=== PATIENT | male | born 1970 | race Caucasian/White ===

== ENCOUNTER 2017-07-04 13:17 | Inpatient (IN) | payer MEDICARE ==
[~2017-07-04] VITALS: Ht 167.6 cm; Wt 67.8 kg
[2017-07-04 13:24] VITALS: Ht 167.6 cm; Wt 67.8 kg
[2017-07-04] MEDS ORDERED: KETOROLAC 15 MG INJ IV STA (13:33)
[2017-07-04] MEDS ORDERED: SOD CHLORIDE 0.9% 1,000 ML IV STA (13:33)
[2017-07-04] MEDS ORDERED: INSULIN LISPRO 100 UNIT/ML VIAL SC STA (13:35)
[2017-07-04] MEDS ORDERED: ATOR80TA75 PO (13:58)
[2017-07-04] MEDS ORDERED: TAMS0.4C2 PO (13:59)
[2017-07-04] MEDS ORDERED: ASPIRIN 81 MG TAB PO ONE (14:00)
[2017-07-04] MEDS ORDERED: NIFE30TA60 PO (14:00)
[2017-07-04] MEDS ORDERED: NITROGLYCERIN (SL) 0.4 MG TAB SL ONE (14:00)
[2017-07-04] MEDS ORDERED: LISI10TA2 PO (14:01)
[2017-07-04] MEDS ORDERED: INSU100C3 SQ (14:03)
--- NOTE | 2017-07-04 14:26 | RADRPT ---
PROCEDURE: XR Chest. CLINICAL INDICATION: Chest pain TECHNIQUE: Single frontal view of the chest was obtained COMPARISON: None FINDINGS: The heart and mediastinum are within normal limits. The lungs are clear. There is no pleural effusion or pneumothorax. The bones and soft tissue show no acute change. IMPRESSION: No definite abnormalities are identified. RPTAT:AAJJ Physician Juanis Date Time Electronically viewed and signed by Bruno Carrasco Physician on 07/04/2017 14:26 /
[2017-07-04] MEDS ORDERED: INSULIN HUMAN REGULAR 100 UNIT in SOD CHLORIDE 0.9% 99 ML IV STA (14:52)
[2017-07-04] MEDS ORDERED: POTASSIUM CHLORIDE 30 MEQ in SOD CHLORIDE 0.9% 1,000 ML IV ONE (15:00)
[2017-07-04] MEDS ORDERED: SOD CHLORIDE 0.9% 1,000 ML IV ONE ×2 (15:00→17:30)
[2017-07-04] MEDS ORDERED: DEXTROSE 50% 50 ML SYRINGE IV PRN ×2 (15:00)
[2017-07-04] MEDS ORDERED: ONDANSETRON 4 MG INJ IV STA (15:24)
[2017-07-04] MEDS: SOD CHLORIDE 0.9% 1,000 ML IV SCH ×2 (15:43→19:17)
[2017-07-04] MEDS: ACCU-CHEK XX SCH ×10 (15:45→23:40)
--- NOTE | 2017-07-04 16:13 | ERA ---
ER Documentation Chief Complaint Date/Time DATE: 07/04/17 TIME: 16:11 Chief Complaint CHEST PAIN STARTED LAST NIGHT, INCREASINGLY WORSE TODAY, NAUSEATED HPI 47-year-old man presents with substernal pressure-like chest discomfort beginning last night, he states the discomfort has been constant and associated with nausea and multiple episodes of vomiting. He states he checked his blood sugar last night and it was in the 150s, and has been using both types of insulin daily as prescribed. He does have a history of diabetes mellitus and hypertension. He does have a right foot infection with a wound VAC currently on the foot and has recently used antibiotics. He denies changes in his insulin regimen, but states he has lost 20 pounds recently, he has had polyuria as well. He denies fevers or chills, no diarrhea, no headache or blurry vision , no neck pain or stiffness. ROS All systems reviewed and are negative except as per history of present illness. Medications Home Meds Reported Medications Insulin Aspart (Novolog) 100 Unit/1 Ml Cartridge, 4 UNIT SQ AC BREAKFAST 07/04/17 Lisinopril* (Lisinopril*) 10 Mg Tablet, 10 MG PO DAILY, #30 TAB 07/04/17 Nifedipine* (Nifedipine ER*) 30 Mg Tablet.sa, 30 MG PO DAILY, TAB.SA 07/04/17 Tamsulosin Hcl* (Tamsulosin Hcl*) 0.4 Mg Cap.er.24h, 0.4 MG PO HS, CAP 07/04/17 Atorvastatin* (Atorvastatin*) 80 Mg Tablet, 80 MG PO QHS, #30 TAB 07/04/17 Allergies Allergies: Coded Allergies: No Known Allergy (Unverified , 07/04/17) PMhx/Soc BPH, dyslipidemia, hypertension, diabetes mellitus, recent right foot infection , chronic kidney injury not on dialysis History of Surgery: Yes (BILATERAL LEGS, TOES) Anesthesia Reaction: No Hx 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 Disorder: No Hx Respiratory Disorders: No Hx Cardiac Disorders: Yes (HTN) Hx Psychiatric Problems: No Hx Miscellaneous Medical Probl: Yes (DM) Hx Alcohol Use: No Hx Substance Use: No Hx Tobacco Use: No Smoking Status: Unknown if ever smoked FmHx Family History: No diabetes Physical Exam Vitals Vital Signs Date Time Temp Pulse Resp B/P Pulse Ox O2 Delivery O2 Flow Rate FiO2 07/04/17 18:30 98.2 94 18 117/63 95 Nasal Cannula 2.0 07/04/17 18:00 76 18 148/80 100 Nasal Cannula 2.0 07/04/17 16:45 98.2 86 18 151/79 100 Nasal Cannula 2.0 07/04/17 15:45 78 18 147/100 100 Nasal Cannula 2.0 07/04/17 14:46 85 18 148/86 99 Nasal Cannula 2.0 07/04/17 13:24 97.9 83 18 128/75 100 Physical Exam GENERAL: Well-developed, appears dehydrated, afebrile HEENT: Dry mucous membranes, pink conjunctiva, no cervical spine tenderness or step-off deformities, no goiter, no jaundice or icterus, extraocular movements intact without pain. No submandibular induration, and no pharyngeal erythema NEURO: Alert and oriented 3, cranial nerves II through XII intact bilaterally, pupils equal round reactive to light, no focal deficits or facial asymmetry, sensation intact distally Strength 5/5 in upper and lower extremities bilaterally CARDIAC: Regular rate and rhythm, no murmurs rubs or gallops LUNGS: Clear bilaterally no wheezing crackles or stridor ABDOMEN: Soft nontender, no guarding, no rigidity, no rebound, no psoas sign no obturator sign. Normoactive bowel sounds SKIN: Warm and dry to touch, no abrasions, contusions, or hematomas, no lacerations, no ecchymosis, no target lesions, and without ulcers EXTREMITIES: No clubbing cyanosis or edema, calves are bilaterally symmetrical, no Homans sign, no popliteal cord sign. Distal pulses equal and bilateral PSYCH: Normal affect without agitation or irritability Result Diagram: 07/04/17 1344 07/04/17 1711 Results 24 hrs Laboratory Tests Test 07/04/17 13:42 07/04/17 13:44 07/04/17 14:59 07/04/17 15:16 Bedside Glucose > 595mg/dL White Blood Count 8.810^3/ul Red Blood Count 3.3610^6/ul Hemoglobin 9.9g/dl Hematocrit 28.6% Mean Corpuscular Volume 85.1fl Mean Corpuscular Hemoglobin 29.5pg Mean Corpuscular Hemoglobin Concent 34.6g/dl Red Cell Distribution Width 13.7% Platelet Count 79059^3/UL Mean Platelet Volume 11.4fl Neutrophils % 84.8% Lymphocytes % 7.5% Monocytes % 5.8% Eosinophils % 0.0% Basophils % 0.5% Nucleated Red Blood Cells % 0.0/100WBC Neutrophils # 7.510^3/ul Lymphocytes # 0.710^3/ul Monocytes # 0.510^3/ul Eosinophils # 0.010^3/ul Basophils # 0.010^3/ul Nucleated Red Blood Cells # 0.010^3/ul Prothrombin Time 12.9Sec Prothrombin Time Ratio 1.0 INR International Normalized Ratio 0.97 Sodium Level 125mmol/L Potassium Level 5.0mmol/L Chloride Level 94mmol/L Carbon Dioxide Level 6mmol/L Anion Gap 30 Blood Urea Nitrogen 106mg/dl Creatinine 12.63mg/dl Glucose Level 868mg/dl Calcium Level 8.2mg/dl Total Bilirubin 0.0mg/dl Direct Bilirubin 0.00mg/dl Indirect Bilirubin 0.0mg/dl Aspartate Amino Transf (AST/SGOT) 15IU/L Alanine Aminotransferase (ALT/SGPT) 40IU/L Alkaline Phosphatase 156IU/L Troponin I < 0.012ng/ml Total Protein 7.1g/dl Albumin 3.8g/dl Globulin 3.30g/dl Albumin/Globulin Ratio 1.15 Lipase 254U/L Blood Gas Specimen Source Blood arterial Arterial Blood Date Drawn 07/04/2017 3:04:13 PM Arterial Blood pH (Temp corrected) 7.152 Arterial Blood pCO2 (Temp correct) 28.4mmhg Arterial Blood pO2 (Temp corrected) 150.0mmHG Arterial Blood HCO3 9.7mmol/L Arterial Blood Base Excess -17.7mmol/L Arterial Blood Oxygen Saturation 98.3mmHG Chu Test ACCEPTAB Arterial Blood Gas Puncture Site Right Radial Arterial Blood Carboxyhemoglobin 0.3% Arterial Blood Methemoglobin 0.3% Blood Gas A-a O2 Differential 16.1mmHg Oxyhemoglobin Percent 97.7% Total Hemoglobin 10.5g/dl Blood Gas Temperature 37.0C Blood Gas Modality NASAL CANNULA FiO2 28.0% Blood Gas Critical Value Read Back DR. MARQUEZ Blood Gas Notified Whom Byron Blood Gas Notified Time 07/04/2017 3:11:18 PM Lactic Acid Level 0.9mmol/L Phosphorus Level 8.5mg/dl Magnesium Level 1.8mg/dl Test 07/04/17 15:17 07/04/17 15:35 07/04/17 15:55 07/04/17 16:41 Hemoglobin A1c 11.1% Bedside Glucose > 595mg/dL 563mg/dL Urine Color STRAW Urine Clarity CLEAR Urine pH 5.0 Urine Specific [place] 1.013 Urine Ketones TRACEmg/dL Urine Nitrite NEGATIVEmg/dL Urine Bilirubin NEGATIVEmg/dL Urine Urobilinogen NEGATIVEmg/dL Urine Leukocyte Esterase NEGATIVELeu/ul Urine Microscopic RBC 1/HPF Urine Microscopic WBC 3/HPF Urine Hemoglobin 1+mg/dL Urine Glucose 3+mg/dL Urine Total Protein 3+mg/dl Test 07/04/17 17:11 07/04/17 17:41 07/04/17 18:49 Sodium Level 128mmol/L Potassium Level 4.6mmol/L Chloride Level 106mmol/L Carbon Dioxide Level 6mmol/L Anion Gap 21 Blood Urea Nitrogen 98mg/dl Creatinine 10.86mg/dl Glucose Level 591mg/dl Calcium Level 7.5mg/dl Bedside Glucose 575mg/dL 426mg/dL Current Medications Medications (Trade) Dose Ordered Sig/Jorge Route PRN Reason Start Time Stop Time Status Last Admin Dose Admin Aspirin (Aspirin) 324 mg ONCE ONCE PO 07/04/17 14:00 07/04/17 14:01 DC 07/04/17 13:56 Nitroglycerin 1 tab 1 tab ONCE ONCE SL 07/04/17 14:00 07/04/17 17:35 DC 07/04/17 13:53 Sodium Chloride (NS) 1,000 ml @ 1,000 mls/hr Q1H STAT IV 07/04/17 13:33 07/04/17 14:32 DC 07/04/17 13:51 Ketorolac Tromethamine (Toradol) 15 mg ONCE STAT IV 07/04/17 13:33 07/04/17 13:35 DC 07/04/17 13:52 Insulin Human Lispro 12 unit 12 unit ONCE STAT SC 07/04/17 13:35 07/04/17 13:36 DC 07/04/17 13:56 Sodium Chloride 1,000 ml @ 1,000 mls/hr Q1H ONCE IV 07/04/17 15:00 07/04/17 15:59 DC 07/04/17 15:18 Sodium Chloride (NS) 1,000 ml @ 250 mls/hr Q4H IV 07/04/17 15:00 07/04/17 15:43 Dextrose (D50w Syringe) 50 ml Q15M PRN IV For BS 50 or less 07/04/17 15:00 Dextrose 25 ml 25 ml Q15M PRN IV BS between 50-70 07/04/17 15:00 Potassium Chloride 30 meq/ Sodium Chloride 1,015 ml @ 250 mls/hr Q4H4M ONCE IV 07/04/17 15:00 07/04/17 19:03 DC 07/04/17 15:43 Insulin Human Regular/Sodium Chloride (Novolin-R/NS) 100 ml @ 0 mls/hr DKA PROTOCOL STAT IV 07/04/17 14:52 07/04/17 17:35 DC 07/04/17 15:41 Diagnostic Test (Pha) (Accu-Chek) 1 ea Q1H XX 07/04/17 15:00 07/04/17 17:43 DC 07/04/17 17:42 Miscellaneous Information (* Miscellaneous Pharmacy Order) HYPOGLYCEMIA TREATMENT HYPOGLYCEM PROTOCOL PRN XX Hypoglycemia (BS < 70) 07/04/17 15:00 Ondansetron HCl 4 mg 4 mg ONCE STAT IV 07/04/17 15:24 07/04/17 15:25 DC 07/04/17 15:46 Sodium Chloride 1,000 ml @ 1,000 mls/hr Q1H ONCE IV 07/04/17 17:30 07/04/17 18:29 DC 07/04/17 17:31 Insulin Human Regular/Sodium Chloride (Novolin-R/NS) 100 ml @ 0 mls/hr DKA PROTOCOL IV 07/04/17 17:30 Diagnostic Test (Pha) (Accu-Chek) 1 ea Q1H XX 07/04/17 17:30 07/04/17 19:01 IV Flush (NS 3 ml) 3 ml PER PROTOCOL IV 07/04/17 18:00 Heparin Sodium (Porcine) (Heparin (5000 Units/0.5 ml)) 5,000 unit Q12 SC 07/04/17 21:00 Insulin Human Regular (Humulin R) 10 unit ONCE STAT IV 07/04/17 18:10 07/04/17 18:33 DC Sodium Bicarbonate (Na Bicarb 8.4% Syg) 100 ml ONCE STAT IV 07/04/17 18:22 07/04/17 18:33 DC Procedures/MDM IV line was established patient was placed on cardiac exercise physiologist rhythm strip revealed a sinus rhythm at about 70 bpm with upright P and T waves. Patient was afebrile. For dehydration admitted 1 L normal saline intravenously and aspirin 324 mg p.o. for cardioprotective measures as well last nitroglycerin 0.4 mg sublingual 1. Patient also received Toradol 50 mg IV 1 for pain. EKG performed, read by me: 72 bpm, normal sinus rhythm, normal axis, no acute ST segment changes, narrow QRS complex, with good R-wave progression in precordial leads. Chest X-ray 1V Interpreted by me: Soft Tissue: No acute abnormalities Bones: No acute abnormalities Mediastinum/Cardiac Silhouette/Lungs: No acute abnormalities CBC revealed anemia at 9.9, electrolytes were all abnormal with severe kidney injury and dehydration with a BUN/creatinine of 98/11, bicarb low at 6, blood sugar above 591. Patient received an initial dose of lispro insulin 10 units subcutaneous injection. This is consistent with moderate to severe diabetic ketoacidosis. Patient was given another 2L of normal saline as well as a saline potassium supplementation drip at 250 cc/h. I also placed him on insulin drip at 0.1 U/kg/h to be titrated by admitting team. Urine analysis was negative for infection. ABG performed, read by me revealed a pH of 7.15, PCO2 28, PO2 150 revealing severe metabolic acidosis with uncompensated respiratory alkalosis. Calcium level was low at 7.5, phosphorus elevated, magnesium normal. I administered calcium gluconate 1 g IV for supplementation. Critical Care: Time: 60 minutes, this was time separate from other billable procedures. Treatments/Evaluations: Close monitoring and treatment of unstable vital signs, cardiorespiratory, and neurologic status, while maintaining tight balance of fluid, respiratory, and cardiac interventions. Patient admitted to ICU for severe diabetic ketoacidosis and acute renal failure , and hypoglycemia Departure Diagnosis: Primary Impression: DKA, type 2 Qualified Code: E13.10 - Type 2 diabetes mellitus with ketoacidosis without coma, with long-term current use of insulin Additional Impressions: Acute hyperglycemia Acute kidney injury Anemia Qualified Code: D64.9 - Anemia, unspecified type Hypocalcemia Hyperphosphatemia Condition: Serious ZOHRABIAN,SELENE MD Jul 04, 2017 16:13
[2017-07-04] MEDS ORDERED: INSULIN HUMAN REGULAR 100 UNIT in SOD CHLORIDE 0.9% 99 ML IV SCH (17:30)
--- NOTE | 2017-07-04 17:47 | HP ---
Date/Time of Note Date/Time of Note DATE: 07/04/17 TIME: 17:39 Assessment/Plan VTE Prophylaxis VTE Prophylaxis Intervention: heparin Lines/Catheters Urinary Cath still in place: Yes Reason Cath still needed: urinary retention Assessment/Plan Chief Complaint/Hosp Course 47 yo male wtih diabetes who presents with DKA, profoudn acidosis and MARICRUZ DKA: - IV insulin per protocol - BMP q4h - 20 units glargine once gap is closed and patient is eating - D5 1/2 NS when FSG < 200 MARICRUZ: - Never before been told he has kidney problem, normal urine output recently - Making adequate urine now, watkins placed - Trend creatinine, will improved somwehat with fluids Metabolic acidosis: - Monitor with correction of DKA - No indication for bicarb given pH To ICU Greater than 45 minutes spent on CC admission Problems: HPI/ROS Admit Date/Time Admit Date/Time Hx of Present Illness 47 yo male with h/o DM on insulin, previous toe amputation presenting wtih nausea and abominal discomfort and lethargy x 1 day. Symptoms started yesterday. Went to PMD, found to be tachypneic and lethargic, sent to ED. Her foudn to e in profound renal faiulre and DKA. Has never been told he has had a kidney problem before. Makes urine. Has urinated in ED x 2. Has receives IV insulin and fluids, says he feels much better. No current complaints. No appetite yet. Denies current abdmoina pain, no diarreha, no chest symptoms, no obvious symptmos of infection PMH/Family/Social Past Medical History Medical History: diabetes Past Surgical History tesricular surgery as child toe amputation Social History Alcohol Use: none Smoking Status: Unknown if ever smoked Drug Use: none Exam/Review of Systems Vital Signs Vitals Vital Signs Date Time Temp Pulse Resp B/P Pulse Ox O2 Delivery O2 Flow Rate FiO2 07/04/17 16:45 98.2 86 18 151/79 100 Nasal Cannula 2.0 Exam Exam Appears well, no distress AOX3, pleasant, conversatn RRR, no m/r/g Lungs clear bilaterally Abdomen soft nt nd Ext without edema. s/p RLE toe amputation No ulcerations Labs Result Diagram: 07/04/17 1344 07/04/17 1344 Medications Medications Current Medications Sodium Chloride (NS) 1,000 ml @ 250 mls/hr Q4H IV Last administered on 15:43; Admin Dose 250 MLS/HR; Start 07/04/17 at 15:00 Dextrose (D50w Syringe) 50 ml Q15M PRN IV For BS 50 or less; Start 07/04/17 at 15:00 Dextrose 25 ml 25 ml Q15M PRN IV BS between 50-70; Start 07/04/17 at 15:00 Potassium Chloride/Sodium Chloride (KCl/NS) 1,015 ml @ 250 mls/hr Q4H4M ONCE IV Last administered on 07/04/17 15:43; Admin Dose 250 MLS/HR; Start at 15:00; Stop 07/04/17 at 19:03 Diagnostic Test (Pha) 1 ea 1 ea Q1H XX Last administered on 07/04/17 16:48; Admin Dose 1 EA; Start 07/04/17 at 15:00 Sodium Chloride (NS) 1,000 ml @ 1,000 mls/hr Q1H ONCE IV Last administered on 07/04/17 17:31; Admin Dose 1,000 MLS/HR; Start 07/04/17 at 17:30; Stop 07/04 at 18:29 Diagnostic Test (Pha) (Accu-Chek) 1 ea Q1H XX ; Start 07/04/17 at 17:30; Status DIMA GRIMALDO MD Jul 04, 2017 17:47
[2017-07-04] MEDS ORDERED: NACL 0.9% 3 ML SYG IV SCH (18:00)
[2017-07-04] MEDS ORDERED: INSULIN REGULAR, HUMAN 100 UNIT/1 ML 3ML VIAL IV STA (18:10)
[2017-07-04] MEDS ORDERED: NA BICARBONATE 8.4% 50 ML SYG IV STA (18:22)
[2017-07-04] MEDS ORDERED: CALCIUM GLUCONATE 10% 1 GM in SOD CHLORIDE 0.9% 100 ML IVPB ONE (19:30)
--- NOTE | 2017-07-04 20:09 | CONS ---
Date/Time of Note Date/Time of Note DATE: 07/04/17 TIME: 20:08 Assessment/Plan Assessment/Plan Additional Assessment/Plan 1. Acute kidney Injury vs MARICRUZ on CKD due to severe prerenal azotemia + ATN From DKA 2. Severe metabolic acidosis with PH 7.1 3. Hyponatremia 4. acute Diabeic ketoacidosis on insulin gtt 5. IDDM with Diabetic kidney disease Plan ; Pt received IVF NS 3 liter in ED< Currently getting NS at 250 cc/hr Pt received Ca gluconate adn Sodium bicarbonatein ED Follow up Chemisty and ABG has been ordered at 8.30 pm- nurse has been instructed to call me back with results of ABG and chemistry Carranza catheter has been attempted in ED but unsuccessful- urethral opening at base of penis- pt is able to void in ED Expectign Cr and HCo3 to improve with IVF hydration and Insulin gtt Renal US has been ordered to assess kidney size, echogencity and to rue out hydronephrosis Pt is currently seen in ED and will be followed up in ICU. Consultation Date/Type/Reason Admit Date/Time Jun Date of Consultation: Jul 04, 2017 Type of Consultation: NEPHROLOGY Reason for Consultation acute kidney injury, DKA, severe Metabolic acidosis Referring Provider: DIMA SMITH MD Hx of Present Illness 47 yo male with h/o DM on insulin, previous toe amputation presenting wtih nausea and abominal discomfort and lethargy x 1 day. pt is found to have Acute kidney injury, DKA,severe metabolic acidosis with PH 7.1, Na 128 ,HCo3 6 and BUN 98 and Cr 10.86. Renal has been consulted for it Subjective hx not possible: other (lethargy) Eyes: no complaints ENT: no complaints Respiratory: no complaints Cardiovascular: no complaints Gastrointestinal: nausea, pain Musculoskeletal: no complaints Skin: no complaints Neurologic: no complaints Endocrine: no complaints Lymphatic: no complaints Psychological: no complaints Immunologic: no complaints Past Medical History Medical History: diabetes Past Surgical History Past Surgical Hx: other (Testicular surgery as child, toe amputation ) Family History Significant Family History: no pertinent family hx, other (no family h/o CKD/ CAD/Stroke ) Social History Alcohol Use: none Smoking Status: Unknown if ever smoked Drug Use: none Exam/Review of Systems Vital Signs Vitals Vital Signs Date Time Temp Pulse Resp B/P Pulse Ox O2 Delivery O2 Flow Rate FiO2 07/04/17 19:30 98.2 84 18 146/88 100 Nasal Cannula 2.0 Exam Constitutional: alert, other (Tired, but communicative ) Psych: no complaints Head: normocephalic Eyes: nl conjunctiva ENMT: other (Dry mucous membrane) Neck: non-tender, supple Respiratory: clear to auscultation, congested cough, diminished breath sounds Cardiovascular: other (tachycardia ), regular rate and rhythm Gastrointestinal: non-tender, soft Musculoskeletal: nl extremities to inspection, nl gait and stance Extremities: normal pulses 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: [employer] II-XII intact, nl mental status, nl speech, nl strength Results Result Diagram: 07/04/17 1344 07/04/17 1711 Results 24 hrs Laboratory Tests Test 07/04/17 13:42 07/04/17 13:44 07/04/17 14:59 07/04/17 15:16 Bedside Glucose > 595 *H White Blood Count 8.8 Red Blood Count 3.36 L Hemoglobin 9.9 L Hematocrit 28.6 L Mean Corpuscular Volume 85.1 Mean Corpuscular Hemoglobin 29.5 Mean Corpuscular Hemoglobin Concent 34.6 Red Cell Distribution Width 13.7 Platelet Count 246 Mean Platelet Volume 11.4 H Neutrophils % 84.8 H Lymphocytes % 7.5 L Monocytes % 5.8 Eosinophils % 0.0 Basophils % 0.5 Nucleated Red Blood Cells % 0.0 Neutrophils # 7.5 Lymphocytes # 0.7 L Monocytes # 0.5 Eosinophils # 0.0 Basophils # 0.0 Nucleated Red Blood Cells # 0.0 Prothrombin Time 12.9 Prothrombin Time Ratio 1.0 INR International Normalized Ratio 0.97 Sodium Level 125 L Potassium Level 5.0 Chloride Level 94 L Carbon Dioxide Level 6 *L Anion Gap 30 H Blood Urea Nitrogen 106 H Creatinine 12.63 H Glucose Level 868 *H Calcium Level 8.2 L Total Bilirubin 0.0 L Direct Bilirubin 0.00 Indirect Bilirubin 0.0 Aspartate Amino Transf (AST/SGOT) 15 Alanine Aminotransferase (ALT/SGPT) 40 Alkaline Phosphatase 156 H Troponin I < 0.012 Total Protein 7.1 Albumin 3.8 Globulin 3.30 H Albumin/Globulin Ratio 1.15 Lipase 254 Blood Gas Specimen Source Blood arterial Arterial Blood Date Drawn 07/04/2017 3:04:13 PM Arterial Blood pH (Temp corrected) 7.152 *L Arterial Blood pCO2 (Temp correct) 28.4 L Arterial Blood pO2 (Temp corrected) 150.0 H Arterial Blood HCO3 9.7 *L Arterial Blood Base Excess -17.7 L Arterial Blood Oxygen Saturation 98.3 H Chu Test ACCEPTAB Arterial Blood Gas Puncture Site Right Radial Arterial Blood Carboxyhemoglobin 0.3 Arterial Blood Methemoglobin 0.3 Blood Gas A-a O2 Differential 16.1 Oxyhemoglobin Percent 97.7 Total Hemoglobin 10.5 L Blood Gas Temperature 37.0 Blood Gas Modality NASAL CANNULA FiO2 28.0 Blood Gas Critical Value Read Back DR. MARQUEZ Blood Gas Notified Whom Byron Blood Gas Notified Time 07/04/2017 3:11:18 PM Lactic Acid Level 0.9 Phosphorus Level 8.5 H Magnesium Level 1.8 Test 07/04/17 15:17 07/04/17 15:35 07/04/17 15:55 07/04/17 16:41 Hemoglobin A1c 11.1 H Bedside Glucose > 595 *H 563 *H Urine Color STRAW Urine Clarity CLEAR Urine pH 5.0 Urine Specific [place] 1.013 Urine Ketones TRACE A Urine Nitrite NEGATIVE Urine Bilirubin NEGATIVE Urine Urobilinogen NEGATIVE Urine Leukocyte Esterase NEGATIVE Urine Microscopic RBC 1 Urine Microscopic WBC 3 Urine Hemoglobin 1+ H Urine Glucose 3+ H Urine Total Protein 3+ H Test 07/04/17 17:11 07/04/17 17:41 07/04/17 18:49 07/04/17 19:50 Sodium Level 128 L Potassium Level 4.6 Chloride Level 106 # Carbon Dioxide Level 6 *L Anion Gap 21 #H Blood Urea Nitrogen 98 H Creatinine 10.86 H Glucose Level 591 #*H Calcium Level 7.5 L Bedside Glucose 575 *H 426 *H 309 H Medications Medications Current Medications Sodium Chloride (NS) 1,000 ml @ 250 mls/hr Q4H IV Last administered on t 19:17; Admin Dose 250 MLS/HR; Start 07/04/17 at 15:00 Dextrose (D50w Syringe) 50 ml Q15M PRN IV For BS 50 or less; Start 07/04/17 at 15:00 Dextrose (D50w Syringe) 25 ml Q15M PRN IV BS between 50-70; Start 07/04/17 at 15:00 Diagnostic Test (Pha) (Accu-Chek) 1 ea Q1H XX Last administered on 07/04/17 19:54; Admin Dose 1 EA; Start 07/04/17 at 17:30 Heparin Sodium (Porcine) 5000 unit 5,000 unit Q12 SC ; Start 07/04/17 at 21:00 Calcium Gluconate/ Sodium Chloride (Ca Gluc/NS) 110 ml @ 110 mls/hr ONCE ONCE IVPB Last administered on 07/04/17 19:35; Admin Dose 110 MLS/HR; Start 07/04 at 19:30; Stop 07/04/17 at 20:29 JENNIFER LUKE MD Jul 04, 2017 20:09
[2017-07-04] MEDS: HEPARIN 5,000 UNIT/0.5 ML VIAL SC SCH (21:25)
--- NOTE | 2017-07-04 21:56 | RADRPT ---
PROCEDURE: US Retroperitoneum CLINICAL INDICATION: Acute renal failure TECHNIQUE: Multiple sonographic images of the kidneys and bladder were obtained. Evaluation was p erformed as well with riggins scale and color and Doppler evaluation using a curved array transducer. The images were reviewed on a high-resolution PACS workstation. COMPARISON: No prior studies are available for comparison. FINDINGS: The kidneys are well visualized. The right kidney measures 10.1 cm in length. 3 mm echogenic focus is seen in the lower pole of the right kidney, possibly nonobstructive calculus. The left kidney alex sures 11.3 cm in length. 5 mm echogenic focus is seen in the lower pole of the left kidney, possibly nonobstructive calculus. No solid renal mass, hydronephrosis or perinephric fluid is identified. The bladder is distended. No focal bladder wall abnormality is seen. Abdominal aorta is not visuali zed. IMPRESSION: 1. Possible small bilateral nonobstructive renal calculi measuring up to 5 mm on the left. 2. No hydronephrosis or obstructive uropathy is identified. RPTAT: HDWR .Giovanni Cuenca MD, MD Date Time Electronically viewed and signed by .Giovanni Cuenca MD, MD on 07/04/2017 21:56 .R/
[2017-07-04 22:00] VITALS: TEMP 98.2
[2017-07-04] MEDS ORDERED: NA BICARBONATE 8.4% 50 ML SYG IV ONE (22:00)
[2017-07-04] MEDS: DEXTROSE 5%-0.45% NACL 1,000 ML IV SCH (22:10)
[2017-07-04 23:03] VITALS: PULSE 105
[2017-07-04] MEDS: ONDANSETRON 4 MG INJ IV PRN (23:54)
[2017-07-05] VITALS (24 sets, daily range): BP systolic 134–188; BP diastolic 69–96; PULSE 66–123; RESP 6–24
[2017-07-05] MEDS: ACCU-CHEK XX SCH ×14 (00:45→13:49)
[2017-07-05] MEDS: DEXTROSE 5%-0.45% NACL 1,000 ML IV SCH ×2 (05:35→17:04)
[2017-07-05] MEDS ORDERED: hydrALAzine 20 MG INJ ONE (07:06)
[2017-07-05] MEDS: hydrALAzine 20 MG INJ IV PRN ×3 (07:10→19:07)
[2017-07-05] MEDS: ONDANSETRON 4 MG INJ IV PRN ×2 (08:42→22:13)
[2017-07-05] MEDS: HEPARIN 5,000 UNIT/0.5 ML VIAL SC SCH ×2 (08:44→20:41)
--- NOTE | 2017-07-05 08:59 | CONS ---
Date/Time of Note Date/Time of Note DATE: 07/05/17 TIME: 08:59 Assessment/Plan Assessment/Plan Chief Complaint/Hosp Course 47 yo male with h/o DM on insulin, previous toe amputation presenting wtih nausea and abominal discomfort and lethargy x 1 day. pt is found to have Acute kidney injury, DKA,severe metabolic acidosis with PH 7.1, Na 128 ,HCo3 6 and BUN 98 and Cr 10.86. Renal has been consulted for it Problems: Additional Assessment/Plan 1. Acute kidney Injury vs MARICRUZ on CKD due to severe prerenal azotemia + ATN From DKA 2. Severe metabolic acidosis with PH 7.1 3. Hyponatremia 4. acute Diabeic ketoacidosis on insulin gtt 5. IDDM with Diabetic kidney disease Plan ; BS improving, switched to D5 1/2NS, if BS runs high then will switch to NS at 75 cc/hr lantus has been given in AM, will continue lantus 15 units SQ BID BP stable if continue to remain acidotic, high BUN/Cr despite DKA resolved.- we will start him on hemodialysis . will continue to follow up Consultation Date/Type/Reason Admit Date/Time Jul 04, 2017 at 15:43 Initial Consult Date 07/04/17 Type of Consultation: NEPHROLOGY Reason for Consultation acute kidney injury, severe metabolic acidosis Referring Provider: DIMA SMITH MD 24 HR Interval Summary Free Text/Dictation imrpoving, HCo3, pt awake, alert, BP stable, BUN/Cr still high, HCo3 low Exam/Review of Systems Vital Signs Vitals Vital Signs Date Time Temp Pulse Resp B/P Pulse Ox O2 Delivery O2 Flow Rate FiO2 07/05/17 07:30 98.5 97 21 98 07/05/17 07:00 183/93 Room Air 07/04/17 22:00 2.0 Intake and Output 07/04/17 07/04/17 07/05/17 14:59 22:59 06:59 Intake Total 887 ml Output Total 1095 ml 1400 ml Balance -1095 ml -513 ml Exam Constitutional: alert, other (Tired, but communicative ) Respiratory: clear to auscultation, congested cough, diminished breath sounds Cardiovascular: other (tachycardia ), regular rate and rhythm Gastrointestinal: non-tender, soft Musculoskeletal: nl extremities to inspection, nl gait and stance Extremities: normal pulses 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: 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 CUTTER AND FORMER II-XII intact, nl mental status, nl speech, nl strength Results Result Diagram: 07/05/17 0430 07/05/17 0430 Results 24 hrs Laboratory Tests Test 07/04/17 13:42 07/04/17 13:44 07/04/17 14:59 07/04/17 15:16 Bedside Glucose > 595 *H White Blood Count 8.8 Red Blood Count 3.36 L Hemoglobin 9.9 L Hematocrit 28.6 L Mean Corpuscular Volume 85.1 Mean Corpuscular Hemoglobin 29.5 Mean Corpuscular Hemoglobin Concent 34.6 Red Cell Distribution Width 13.7 Platelet Count 246 Mean Platelet Volume 11.4 H Neutrophils % 84.8 H Lymphocytes % 7.5 L Monocytes % 5.8 Eosinophils % 0.0 Basophils % 0.5 Nucleated Red Blood Cells % 0.0 Neutrophils # 7.5 Lymphocytes # 0.7 L Monocytes # 0.5 Eosinophils # 0.0 Basophils # 0.0 Nucleated Red Blood Cells # 0.0 Prothrombin Time 12.9 Prothrombin Time Ratio 1.0 INR International Normalized Ratio 0.97 Sodium Level 125 L Potassium Level 5.0 Chloride Level 94 L Carbon Dioxide Level 6 *L Anion Gap 30 H Blood Urea Nitrogen 106 H Creatinine 12.63 H Glucose Level 868 *H Calcium Level 8.2 L Total Bilirubin 0.0 L Direct Bilirubin 0.00 Indirect Bilirubin 0.0 Aspartate Amino Transf (AST/SGOT) 15 Alanine Aminotransferase (ALT/SGPT) 40 Alkaline Phosphatase 156 H Troponin I < 0.012 Total Protein 7.1 Albumin 3.8 Globulin 3.30 H Albumin/Globulin Ratio 1.15 Lipase 254 Blood Gas Specimen Source Blood arterial Arterial Blood Date Drawn 07/04/2017 3:04:13 PM Arterial Blood pH (Temp corrected) 7.152 *L Arterial Blood pCO2 (Temp correct) 28.4 L Arterial Blood pO2 (Temp corrected) 150.0 H Arterial Blood HCO3 9.7 *L Arterial Blood Base Excess -17.7 L Arterial Blood Oxygen Saturation 98.3 H Chu Test ACCEPTAB Arterial Blood Gas Puncture Site Right Radial Arterial Blood Carboxyhemoglobin 0.3 Arterial Blood Methemoglobin 0.3 Blood Gas A-a O2 Differential 16.1 Oxyhemoglobin Percent 97.7 Total Hemoglobin 10.5 L Blood Gas Temperature 37.0 Blood Gas Modality NASAL CANNULA FiO2 28.0 Blood Gas Critical Value Read Back DR. MARQUEZ Blood Gas Notified Whom Byron Blood Gas Notified Time 07/04/2017 3:11:18 PM Lactic Acid Level 0.9 Phosphorus Level 8.5 H Magnesium Level 1.8 Test 07/04/17 15:17 07/04/17 15:35 07/04/17 15:55 07/04/17 16:41 Hemoglobin A1c 11.1 H Bedside Glucose > 595 *H 563 *H Urine Color STRAW Urine Clarity CLEAR Urine pH 5.0 Urine Specific [place] 1.013 Urine Ketones TRACE A Urine Nitrite NEGATIVE Urine Bilirubin NEGATIVE Urine Urobilinogen NEGATIVE Urine Leukocyte Esterase NEGATIVE Urine Microscopic RBC 1 Urine Microscopic WBC 3 Urine Hemoglobin 1+ H Urine Glucose 3+ H Urine Total Protein 3+ H Test 07/04/17 17:11 07/04/17 17:41 07/04/17 18:49 07/04/17 19:50 Sodium Level 128 L Potassium Level 4.6 Chloride Level 106 # Carbon Dioxide Level 6 *L Anion Gap 21 #H Blood Urea Nitrogen 98 H Creatinine 10.86 H Glucose Level 591 #*H Calcium Level 7.5 L Bedside Glucose 575 *H 426 *H 309 H Test 07/04/17 20:30 07/04/17 20:35 07/04/17 20:38 07/04/17 21:38 Blood Gas Specimen Source Blood arterial Arterial Blood Date Drawn 07/04/2017 8:30:08 PM Arterial Blood pH (Temp corrected) 7.237 *L Arterial Blood pCO2 (Temp correct) 25.3 L Arterial Blood pO2 (Temp corrected) 150.2 H Arterial Blood HCO3 10.5 L Arterial Blood Base Excess -15.4 L Arterial Blood Oxygen Saturation 98.2 H Chu Test ACCEPTAB Arterial Blood Gas Puncture Site Left Radial Arterial Blood Carboxyhemoglobin 0.2 Arterial Blood Methemoglobin 0.3 Blood Gas A-a O2 Differential 12.4 Oxyhemoglobin Percent 97.7 Total Hemoglobin 9.7 L Blood Gas Temperature 37.0 Blood Gas Modality NASAL CANNULA FiO2 27.0 Blood Gas Critical Value Read Back Alejandra CROWE RN Blood Gas Notified Whom MONICA Blood Gas Notified Time 07/04/2017 8:46:58 PM Sodium Level 138 Potassium Level 4.0 Chloride Level 113 H Carbon Dioxide Level 9 *L Anion Gap 20 H Blood Urea Nitrogen 93 H Creatinine 10.13 H Glucose Level 213 # Calcium Level 7.7 L Bedside Glucose 261 H 172 Test 07/04/17 22:56 07/04/17 23:38 07/05/17 00:39 07/05/17 00:48 Bedside Glucose 120 105 72 Sodium Level 144 Potassium Level 3.5 Chloride Level 117 H Carbon Dioxide Level 13 L Anion Gap 18 H Blood Urea Nitrogen 93 H Creatinine 9.77 H Glucose Level 64 #L Calcium Level 7.8 L Test 07/05/17 01:03 07/05/17 01:26 07/05/17 02:38 07/05/17 03:27 Bedside Glucose 112 115 133 129 Test 07/05/17 04:26 07/05/17 04:30 07/05/17 05:34 07/05/17 06:28 Bedside Glucose 142 154 169 White Blood Count 7.8 Red Blood Count 2.95 L Hemoglobin 8.2 L Hematocrit 24.6 L Mean Corpuscular Volume 83.4 Mean Corpuscular Hemoglobin 27.8 L Mean Corpuscular Hemoglobin Concent 33.3 Red Cell Distribution Width 13.4 Platelet Count 213 Mean Platelet Volume 11.6 H Neutrophils % 73.6 Lymphocytes % 15.2 Monocytes % 8.8 Eosinophils % 0.9 Basophils % 0.5 Nucleated Red Blood Cells % 0.0 Neutrophils # 5.8 Lymphocytes # 1.2 Monocytes # 0.7 Eosinophils # 0.1 Basophils # 0.0 Nucleated Red Blood Cells # 0.0 Sodium Level 142 Potassium Level 3.7 Chloride Level 115 H Carbon Dioxide Level 14 L Anion Gap 17 H Blood Urea Nitrogen 90 H Creatinine 9.28 H Glucose Level 126 # Calcium Level 7.7 L Phosphorus Level 6.2 #H Iron Level 170 H Total Iron Binding Capacity 200 L Percent Iron Saturation 85 H Ferritin 243.0 Total Bilirubin 0.1 L Direct Bilirubin 0.00 Indirect Bilirubin 0.1 Aspartate Amino Transf (AST/SGOT) 12 L Alanine Aminotransferase (ALT/SGPT) 36 Alkaline Phosphatase 110 Total Protein 5.8 #L Albumin 2.6 #L Globulin 3.20 Albumin/Globulin Ratio 0.81 Triglycerides Level 101 Cholesterol Level 57 L LDL Cholesterol, Calculated 8 HDL Cholesterol 29 Cholesterol/HDL Ratio 1.9 Test 07/05/17 07:00 07/05/17 07:24 07/05/17 08:48 Blood Gas Specimen Source Blood arterial Arterial Blood Date Drawn 07/05/2017 7:45:34 AM Arterial Blood pH (Temp corrected) 7.286 *L Arterial Blood pCO2 (Temp correct) 26.2 L Arterial Blood pO2 (Temp corrected) 71.6 L Arterial Blood HCO3 12.2 L Arterial Blood Base Excess -13.0 L Arterial Blood Oxygen Saturation 92.5 L Chu Test ACCEPTAB Arterial Blood Gas Puncture Site Right Radial Arterial Blood Carboxyhemoglobin 0.3 Arterial Blood Methemoglobin 0.3 Blood Gas A-a O2 Differential 46.8 H Oxyhemoglobin Percent 91.9 L Total Hemoglobin 10.1 L Blood Gas Temperature 37.0 Blood Gas Modality ROOM AIR FiO2 21.0 Blood Gas Critical Value Read Back KATHY MERCEDES Blood Gas Notified Whom Jude LUKE Blood Gas Notified Time 07/05/2017 7:57:13 AM Bedside Glucose 170 192 Medications Medications Current Medications Dextrose (D50w Syringe) 50 ml Q15M PRN IV For BS 50 or less; Start 07/04/17 at 15:00 Dextrose (D50w Syringe) 25 ml Q15M PRN IV BS between 50-70 Last administered on 07/05/17 00:42; Admin Dose 25 ML; Start 07/04/17 at 15:00 Diagnostic Test (Pha) (Accu-Chek) 1 ea Q1H XX Last administered on 07/05/17 07:37; Admin Dose 1 EA; Start 07/04/17 at 17:30 Heparin Sodium (Porcine) 5000 unit 5,000 unit Q12 SC Last administered on 07/05 08:44; Admin Dose 5,000 UNIT; Start 07/04/17 at 21:00 Dextrose/Sodium Chloride (D5-1/2ns) 1,000 ml @ 125 mls/hr Q8H IV Last administered on 07/05/17 05:35; Admin Dose 125 MLS/HR; Start 07/04/17 at 22: 00 Ondansetron HCl (Zofran Inj) 4 mg Q4H PRN IV NAUSEA AND/OR VOMITING Last administered on 07/05/17 08:42; Admin Dose 4 MG; Start 07/05/17 at 00:00 Hydralazine HCl (Apresoline) 10 mg Q6H PRN IV IF SBP>160 Last administered on 07/05/17 07:10; Admin Dose 10 MG; Start 07/05/17 at 07:30 Insulin Glargine (Lantus) 15 unit ONCE ONCE SC ; Start 07/05/17 at 09:00; Stop 07/05/17 at 09:01; Status UNV JENNIFER LUKE MD Jul 05, 2017 08:59
[2017-07-05] MEDS ORDERED: METOCLOPRAMIDE 10 MG INJ IM ONE (09:00)
[2017-07-05] MEDS ORDERED: METOCLOPRAMIDE 10 MG INJ IV ONE (09:00)
[2017-07-05] MEDS ORDERED: INSULIN GLARGINE [LANtus] 3 ML PEN SC ONE ×2 (09:00)
[2017-07-05] MEDS ORDERED: GLUCOSE GEL 15 GRAM TUBE BUCCAL PRN ×2 (09:30→16:00)
[2017-07-05] MEDS ORDERED: GLUCOSE GEL 15 GRAM TUBE PO PRN ×4 (09:30→16:00)
[2017-07-05] MEDS ORDERED: DEXTROSE 50% 50 ML SYRINGE IV PRN ×4 (09:30→16:00)
[2017-07-05] MEDS ORDERED: GLUCAGON 1 MG INJ IM PRN ×2 (09:30→16:00)
[2017-07-05] MEDS: CITRIC ACID/NA CITRATE 30 ML CUP PO SCH ×3 (10:16→20:37)
[2017-07-05] MEDS ORDERED: POTASSIUM CHLORIDE (SR) 20 MEQ TAB PO STA (15:36)
--- NOTE | 2017-07-05 15:39 | PN ---
Date/Time of Note Date/Time of Note DATE: 07/05/17 TIME: 15:37 Assessment/Plan VTE Prophylaxis VTE Prophylaxis Intervention: heparin Lines/Catheters IV C[facility] Type [facility]from [facility] Peripheral IV Urinary Cath still in place: No Assessment/Plan Chief Complaint/Hosp Course 47 yo male with insulin dependent diabetes who presents with DKA, profound acidosis and MARICRUZ DKA: - Resolved DM: - Continue glargine 15 with meal time insulin QAC and sliding scale MARICRUZ: - Suspect underlying CKD from diabetic nephropathy - Continue fluids - Renal US normal Metabolic acidosis: - Monitor with correction of DKA - Continue bicitra per Dr Alan Sethi: - Likely from CKD ICU Greater than 45 minutes spent on CC admission Problems: Subjective 24 Hr Interval Summary Free Text/Dictation Patient doing better today symptomatically Continued on insulin gtt overnight, became hypoglycemic requiring D50 Give glargine coverage today Given diet Numerous bicarb amps given Exam/Review of Systems Vital Signs Vitals Vital Signs Date Time Temp Pulse Resp B/P Pulse Ox O2 Delivery O2 Flow Rate FiO2 07/05/17 15:00 81 11 143/77 98 Room Air 07/05/17 12:00 98.4 07/04/17 22:00 2.0 Intake and Output 07/04/17 07/04/17 07/05/17 15:00 23:00 07:00 Intake Total 887 ml Output Total 1095 ml 1400 ml Balance -1095 ml -513 ml Exam Constitutional: alert, oriented, well developed Psych: nl mood/affect, no complaints Head: atraumatic, normocephalic Eyes: EOMI, PERRL, nl conjunctiva, nl lids, nl sclera ENMT: nl external ears & nose, nl lips & teeth, nl nasal mucosa & septum Neck: non-tender, supple Respiratory: clear to auscultation, normal air movement Cardiovascular: nl pulses, regular rate and rhythm Gastrointestinal: nl liver, spleen, non-tender, soft Musculoskeletal: nl extremities to inspection, nl gait and stance Extremities: normal pulses 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: CONSTRUCTION JOB COST ESTIMATOR II-XII intact, nl mental status, nl speech, nl strength Skin: nl turgor, No rash or lesions Lymph: nl lymph nodes Results Result Diagram: 07/05/17 0430 07/05/17 1420 Results 24 hrs Laboratory Tests Test 07/04/17 15:55 07/04/17 16:41 07/04/17 17:11 07/04/17 17:41 Urine Color STRAW Urine Clarity CLEAR Urine pH 5.0 Urine Specific [place] 1.013 Urine Ketones TRACE A Urine Nitrite NEGATIVE Urine Bilirubin NEGATIVE Urine Urobilinogen NEGATIVE Urine Leukocyte Esterase NEGATIVE Urine Microscopic RBC 1 Urine Microscopic WBC 3 Urine Hemoglobin 1+ H Urine Glucose 3+ H Urine Total Protein 3+ H Bedside Glucose 563 *H 575 *H Sodium Level 128 L Potassium Level 4.6 Chloride Level 106 # Carbon Dioxide Level 6 *L Anion Gap 21 #H Blood Urea Nitrogen 98 H Creatinine 10.86 H Glucose Level 591 #*H Calcium Level 7.5 L Test 07/04/17 18:49 07/04/17 19:50 07/04/17 20:30 07/04/17 20:35 Bedside Glucose 426 *H 309 H Blood Gas Specimen Source Blood arterial Arterial Blood Date Drawn 07/04/2017 8:30:08 PM Arterial Blood pH (Temp corrected) 7.237 *L Arterial Blood pCO2 (Temp correct) 25.3 L Arterial Blood pO2 (Temp corrected) 150.2 H Arterial Blood HCO3 10.5 L Arterial Blood Base Excess -15.4 L Arterial Blood Oxygen Saturation 98.2 H Chu Test ACCEPTAB Arterial Blood Gas Puncture Site Left Radial Arterial Blood Carboxyhemoglobin 0.2 Arterial Blood Methemoglobin 0.3 Blood Gas A-a O2 Differential 12.4 Oxyhemoglobin Percent 97.7 Total Hemoglobin 9.7 L Blood Gas Temperature 37.0 Blood Gas Modality NASAL CANNULA FiO2 27.0 Blood Gas Critical Value Read Back Alejandra CROWE RN Blood Gas Notified Whom UP Blood Gas Notified Time 07/04/2017 8:46:58 PM Sodium Level 138 Potassium Level 4.0 Chloride Level 113 H Carbon Dioxide Level 9 *L Anion Gap 20 H Blood Urea Nitrogen 93 H Creatinine 10.13 H Glucose Level 213 # Calcium Level 7.7 L Test 07/04/17 20:38 07/04/17 21:38 07/04/17 22:56 07/04/17 23:38 Bedside Glucose 261 H 172 120 105 Test 07/05/17 00:39 07/05/17 00:48 07/05/17 01:03 07/05/17 01:26 Bedside Glucose 72 112 115 Sodium Level 144 Potassium Level 3.5 Chloride Level 117 H Carbon Dioxide Level 13 L Anion Gap 18 H Blood Urea Nitrogen 93 H Creatinine 9.77 H Glucose Level 64 #L Calcium Level 7.8 L Test 07/05/17 02:38 07/05/17 03:27 07/05/17 04:26 07/05/17 04:30 Bedside Glucose 133 129 142 White Blood Count 7.8 Red Blood Count 2.95 L Hemoglobin 8.2 L Hematocrit 24.6 L Mean Corpuscular Volume 83.4 Mean Corpuscular Hemoglobin 27.8 L Mean Corpuscular Hemoglobin Concent 33.3 Red Cell Distribution Width 13.4 Platelet Count 213 Mean Platelet Volume 11.6 H Neutrophils % 73.6 Lymphocytes % 15.2 Monocytes % 8.8 Eosinophils % 0.9 Basophils % 0.5 Nucleated Red Blood Cells % 0.0 Neutrophils # 5.8 Lymphocytes # 1.2 Monocytes # 0.7 Eosinophils # 0.1 Basophils # 0.0 Nucleated Red Blood Cells # 0.0 Sodium Level 142 Potassium Level 3.7 Chloride Level 115 H Carbon Dioxide Level 14 L Anion Gap 17 H Blood Urea Nitrogen 90 H Creatinine 9.28 H Glucose Level 126 # Calcium Level 7.7 L Ionized Calcium (Measured) 1.1 Phosphorus Level 6.2 #H Iron Level 170 H Total Iron Binding Capacity 200 L Percent Iron Saturation 85 H Ferritin 243.0 Total Bilirubin 0.1 L Direct Bilirubin 0.00 Indirect Bilirubin 0.1 Aspartate Amino Transf (AST/SGOT) 12 L Alanine Aminotransferase (ALT/SGPT) 36 Alkaline Phosphatase 110 Total Protein 5.8 #L Albumin 2.6 #L Globulin 3.20 Albumin/Globulin Ratio 0.81 Triglycerides Level 101 Cholesterol Level 57 L LDL Cholesterol, Calculated 8 HDL Cholesterol 29 Cholesterol/HDL Ratio 1.9 Test 07/05/17 05:34 07/05/17 06:28 07/05/17 07:00 07/05/17 07:24 Bedside Glucose 154 169 170 Blood Gas Specimen Source Blood arterial Arterial Blood Date Drawn 07/05/2017 7:45:34 AM Arterial Blood pH (Temp corrected) 7.286 *L Arterial Blood pCO2 (Temp correct) 26.2 L Arterial Blood pO2 (Temp corrected) 71.6 L Arterial Blood HCO3 12.2 L Arterial Blood Base Excess -13.0 L Arterial Blood Oxygen Saturation 92.5 L Chu Test ACCEPTAB Arterial Blood Gas Puncture Site Right Radial Arterial Blood Carboxyhemoglobin 0.3 Arterial Blood Methemoglobin 0.3 Blood Gas A-a O2 Differential 46.8 H Oxyhemoglobin Percent 91.9 L Total Hemoglobin 10.1 L Blood Gas Temperature 37.0 Blood Gas Modality ROOM AIR FiO2 21.0 Blood Gas Critical Value Read Back KATHY MERCEDES Blood Gas Notified Whom Jude LUKE Blood Gas Notified Time 07/05/2017 7:57:13 AM Test 07/05/17 08:48 07/05/17 09:32 07/05/17 10:44 07/05/17 11:21 Bedside Glucose 192 196 220 223 H Test 07/05/17 12:40 07/05/17 13:20 07/05/17 14:20 07/05/17 14:26 Bedside Glucose 187 197 142 Sodium Level 142 Potassium Level 3.4 L Chloride Level 114 H Carbon Dioxide Level 14 L Anion Gap 17 H Blood Urea Nitrogen 82 H Creatinine 9.50 H Glucose Level 145 Calcium Level 8.0 L Test 07/05/17 15:17 Bedside Glucose 142 Medications Medications Current Medications Dextrose (D50w Syringe) 50 ml Q15M PRN IV For BS 50 or less; Start 07/04/17 at 15:00 Dextrose (D50w Syringe) 25 ml Q15M PRN IV BS between 50-70 Last administered on 07/05/17 00:42; Admin Dose 25 ML; Start 07/04/17 at 15:00 Diagnostic Test (Pha) (Accu-Chek) 1 ea Q1H XX Last administered on 07/05/17 13:49; Admin Dose 1 EA; Start 07/04/17 at 17:30 Heparin Sodium (Porcine) 5000 unit 5,000 unit Q12 SC Last administered on 07/05 08:44; Admin Dose 5,000 UNIT; Start 07/04/17 at 21:00 Dextrose/Sodium Chloride (D5-1/2ns) 1,000 ml @ 75 mls/hr [id number] IV Last administered on 07/05/17 05:35; Admin Dose 125 MLS/HR; Start 07/04/17 at 22: 00 Ondansetron HCl (Zofran Inj) 4 mg Q4H PRN IV NAUSEA AND/OR VOMITING Last administered on 07/05/17 08:42; Admin Dose 4 MG; Start 07/05/17 at 00:00 Hydralazine HCl (Apresoline) 10 mg Q6H PRN IV IF SBP>160 Last administered on 07/05/17t 14:15; Admin Dose 10 MG; Start 07/05/17 at 07:30 Insulin Glargine (Lantus) 15 unit QHS SC ; Start 07/05/17 at 21:00 Citric Acid/ Sodium Citrate (Bicitra) 30 ml TID PO Last administered on t 10:16; Admin Dose 30 ML; Start 07/05/17 at 10:00 Miscellaneous Information 1 ea NOTE XX ; Start 07/05/17 at 09:30 Glucose (Glutose) 15 gm Q15M PRN PO DECREASED GLUCOSE; Start 07/05/17 at 09:30 Glucose (Glutose) 22.5 gm Q15M PRN PO DECREASED GLUCOSE; Start 07/05/17 at 09: 30 Dextrose (D50w Syringe) 25 ml Q15M PRN IV DECREASED GLUCOSE; Start 07/05/17 at 09:30 Dextrose (D50w Syringe) 50 ml Q15M PRN IV DECREASED GLUCOSE; Start 07/05/17 at 09:30 Glucagon (Glucagen) 1 mg Q15M PRN IM DECREASED GLUCOSE; Start 07/05/17 at 09: 30 Glucose (Glutose) 15 gm Q15M PRN BUCCAL DECREASED GLUCOSE; Start 07/05/17 at 09:30 DIMA SMITH MD Jul 05, 2017 15:39
[2017-07-05] MEDS: AMLODIPINE 5 MG TAB PO SCH (16:59)
[2017-07-05] MEDS: INSULIN ASPART [NOVOLOG] 3 ML PEN SC SCH ×3 (17:35→20:40)
[2017-07-05] MEDS ORDERED: POTASSIUM CHLORIDE 20 MEQ in SOD CHLORIDE 0.9% 100 ML IVPB ONE (18:00)
[2017-07-05] MEDS: INSULIN GLARGINE [LANtus] 3 ML PEN SC SCH (20:40)
[2017-07-06] MEDS ORDERED: SOD CHLORIDE 0.9% 1,000 ML IV SCH (00:30)
[2017-07-06] MEDS: ACCUCHECK AT 2AM (Patients on SS coverage) XX SCH (02:00)
[2017-07-06] MEDS: DEXTROSE 5%-0.45% NACL 1,000 ML IV SCH (06:40)
[2017-07-06] MEDS: INSULIN ASPART [NOVOLOG] 3 ML PEN SC SCH ×7 (07:50→21:47)
[2017-07-06 08:14] VITALS: BP 186/94; RESP 19
[2017-07-06] MEDS: CITRIC ACID/NA CITRATE 30 ML CUP PO SCH ×3 (08:44→21:47)
[2017-07-06] MEDS: AMLODIPINE 5 MG TAB PO SCH (08:45)
[2017-07-06] MEDS: HEPARIN 5,000 UNIT/0.5 ML VIAL SC SCH (08:46)
[2017-07-06] MEDS ORDERED: DEXTROSE 5%-0.45% NACL 500 ML IV SCH (11:00)
--- NOTE | 2017-07-06 11:05 | CONS ---
Date/Time of Note Date/Time of Note DATE: 07/06/17 TIME: 11:01 Assessment/Plan Assessment/Plan Chief Complaint/Hosp Course 47 yo male with h/o DM on insulin, previous toe amputation presenting wtih nausea and abominal discomfort and lethargy x 1 day. pt is found to have Acute kidney injury, DKA,severe metabolic acidosis with PH 7.1, Na 128 ,HCo3 6 and BUN 98 and Cr 10.86. Renal has been consulted for it Problems: Additional Assessment/Plan 1. Acute kidney Injury vs MARICRUZ on CKD due to severe prerenal azotemia + ATN From DKA 2. Severe metabolic acidosis with PH 7.1 3. Hyponatremia 4. acute Diabeic ketoacidosis on insulin gtt 5. IDDM with Diabetic kidney disease Plan ; Previsouliy pt declined HD at [facility]- Here his DKA resolved but his BUN/Cr persistently remained high despie getting so much IVF hydration - we again discussed with patient about HD initiation- he agreed for HD initiation, Permacath requested, BP stable, Once catheter is iin , will order HD NPO IVF D51/2NS AT 40 CC/HR Hepatitis panel and HIV ordered fro AM labs continue lantus 15 units SQ BID will continue to follow up Consultation Date/Type/Reason Admit Date/Time Jul 04, 2017 at 15:43 Initial Consult Date 07/04/17 Type of Consultation: NEPHROLOGY Referring Provider: DIMA SMITH MD 24 HR Interval Summary Free Text/Dictation pt BUN/Cr persistently remaiend high, [facility], BP stable, now he agreeed for HD initiation Exam/Review of Systems Vital Signs Vitals Vital Signs Date Time Temp Pulse Resp B/P Pulse Ox O2 Delivery O2 Flow Rate FiO2 07/06/17 08:14 98.0 77 19 186/94 98 07/05/17 21:25 Room Air 07/04/17 22:00 2.0 Intake and Output 07/05/17 07/05/17 07/06/17 15:00 23:00 07:00 Intake Total 782 ml 655 ml 940 ml Output Total 650 ml 200 ml 1100 ml Balance 132 ml 455 ml -160 ml Exam Constitutional: alert, other (Tired, but communicative ) Respiratory: clear to auscultation, congested cough, diminished breath sounds Cardiovascular: other (tachycardia ), regular rate and rhythm Gastrointestinal: non-tender, soft Musculoskeletal: nl extremities to inspection, nl gait and stance Extremities: normal pulses 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: SLAT 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 II-XII intact, nl mental status, nl speech, nl strength Results Result Diagram: 07/06/17 0430 07/06/17 0430 Results 24 hrs Laboratory Tests Test 07/05/17 11:21 07/05/17 12:40 07/05/17 13:20 07/05/17 14:20 Bedside Glucose 223 H 187 197 Sodium Level 142 Potassium Level 3.4 L Chloride Level 114 H Carbon Dioxide Level 14 L Anion Gap 17 H Blood Urea Nitrogen 82 H Creatinine 9.50 H Glucose Level 145 Calcium Level 8.0 L Test 07/05/17 14:26 07/05/17 15:17 07/05/17 15:25 07/05/17 16:43 Bedside Glucose 142 142 145 Sodium Level 141 Potassium Level 3.3 L Chloride Level 114 H Carbon Dioxide Level 12 L Anion Gap 18 H Blood Urea Nitrogen 81 H Creatinine 9.40 H Glucose Level 136 Calcium Level 7.7 L Test 07/05/17 20:37 07/06/17 02:15 07/06/17 04:29 07/06/17 04:30 Bedside Glucose 272 H 200 Phosphorus Level 6.1 H Magnesium Level 1.4 L Iron Level 189 H Total Iron Binding Capacity 211 L Percent Iron Saturation 90 H Ferritin 269.0 White Blood Count 6.7 Red Blood Count 3.18 L Hemoglobin 9.0 L Hematocrit 26.9 L Mean Corpuscular Volume 84.6 Mean Corpuscular Hemoglobin 28.3 L Mean Corpuscular Hemoglobin Concent 33.5 Red Cell Distribution Width 14.0 Platelet Count 235 Mean Platelet Volume 11.6 H Neutrophils % 71.5 Lymphocytes % 16.1 Monocytes % 9.8 Eosinophils % 0.9 Basophils % 0.7 Nucleated Red Blood Cells % 0.0 Neutrophils # 4.8 Lymphocytes # 1.1 Monocytes # 0.7 Eosinophils # 0.1 Basophils # 0.1 Nucleated Red Blood Cells # 0.0 Prothrombin Time 13.6 Prothrombin Time Ratio 1.1 INR International Normalized Ratio 1.04 Activated Partial Thromboplast Time 33.0 Sodium Level 141 Potassium Level 3.7 Chloride Level 114 H Carbon Dioxide Level 15 L Anion Gap 16 Blood Urea Nitrogen 77 H Creatinine 8.83 H Glucose Level 149 Calcium Level 7.8 L Total Bilirubin 0.0 L Direct Bilirubin 0.00 Indirect Bilirubin 0.0 Aspartate Amino Transf (AST/SGOT) 14 L Alanine Aminotransferase (ALT/SGPT) 31 Alkaline Phosphatase 108 Total Protein 6.2 Albumin 2.8 L Globulin 3.40 H Albumin/Globulin Ratio 0.82 Test 07/06/17 05:00 07/06/17 08:41 Blood Gas Specimen Source Blood arterial Arterial Blood Date Drawn 07/06/2017 6:41:48 AM Arterial Blood pH (Temp corrected) 7.295 *L Arterial Blood pCO2 (Temp correct) 29.4 L Arterial Blood pO2 (Temp corrected) 99.6 Arterial Blood HCO3 14.0 L Arterial Blood Base Excess -11.3 L Arterial Blood Oxygen Saturation 97.0 Chu Test ACCEPTAB Arterial Blood Gas Puncture Site Right Radial Arterial Blood Carboxyhemoglobin 0.3 Arterial Blood Methemoglobin 0.1 Blood Gas A-a O2 Differential 14.9 Oxyhemoglobin Percent 96.6 Total Hemoglobin 10.3 L Blood Gas Temperature 37.0 Blood Gas Modality ROOM AIR FiO2 21.0 Blood Gas Critical Value Read Back CHELITA RN Blood Gas Notified Whom AHAGAELON HANDLE SEWER Blood Gas Notified Time 07/06/2017 6:52:55 AM Bedside Glucose 133 Medications Medications Current Medications Heparin Sodium (Porcine) (Heparin (5000 Units/0.5 ml)) 5,000 unit Q12 SC Last administered on 07/06/17 08:46; Admin Dose 5,000 UNIT; Start 07/04/17 at 21: 00 Ondansetron HCl (Zofran Inj) 4 mg Q4H PRN IV NAUSEA AND/OR VOMITING Last administered on 07/05/17 22:13; Admin Dose 4 MG; Start 07/05/17 at 00:00 Hydralazine HCl (Apresoline) 10 mg Q6H PRN IV IF SBP>160 Last administered on 07/05/17 19:07; Admin Dose 10 MG; Start 07/05/17 at 07:30 Insulin Glargine (Lantus) 15 unit QHS SC Last administered on 07/05/17 20:40 ; Admin Dose 15 UNIT; Start 07/05/17 at 21:00 Citric Acid/ Sodium Citrate (Bicitra) 30 ml TID PO Last administered on 08:44; Admin Dose 30 ML; Start 07/05/17 at 10:00 Amlodipine Besylate (Norvasc) 5 mg DAILY PO Last administered on 07/06/17 08: 45; Admin Dose 5 MG; Start 07/05/17 at 16:00 Miscellaneous Information 1 ea NOTE XX ; Start 07/05/17 at 16:00 Glucose (Glutose) 15 gm Q15M PRN PO DECREASED GLUCOSE; Start 07/05/17 at 16:00 Glucose (Glutose) 22.5 gm Q15M PRN PO DECREASED GLUCOSE; Start 07/05/17 at 16: 00 Dextrose (D50w Syringe) 25 ml Q15M PRN IV DECREASED GLUCOSE; Start 07/05/17 at 16:00 Dextrose (D50w Syringe) 50 ml Q15M PRN IV DECREASED GLUCOSE; Start 07/05/17 at 16:00 Glucagon (Glucagen) 1 mg Q15M PRN IM DECREASED GLUCOSE; Start 07/05/17 at 16: 00 Glucose (Glutose) 15 gm Q15M PRN BUCCAL DECREASED GLUCOSE; Start 07/05/17 at 16:00 Diagnostic Test (Pha) (Accu-Chek) 1 ea 02 XX Last administered on 07/06/17 02 :00; Admin Dose 1 EA; Start 07/06/17 at 02:00 Carvedilol 3.125 mg 3.125 mg BID PO Last administered on 07/06/17 10:59; Admin Dose 3.125 MG; Start 07/06/17 at 10:00 Magnesium Sulfate (Magnesium Sulfate 2 Gm/50 ml) 50 ml @ 25 mls/hr ONCE ONCE IVPB ; Start 07/06/17 at 11:00; Stop 07/06/17 at 12:59; Status JENNIFER KUHN MD Jul 06, 2017 11:05
[2017-07-06] MEDS ORDERED: MAGNESIUM SULFATE 2 GM/50 ML 50 ML IVPB ONE (12:00)
[2017-07-06 14:00] VITALS: BP 136/71; RESP 19
[2017-07-06] MEDS ORDERED: HEPARIN 1000 UNITS/NS (A-LINE) 1,000 ML ONE (17:45)
[2017-07-06] MEDS ORDERED: LIDOCAINE 1% (MDV) 20 ML INJ ONE ×2 (17:45→17:46)
[2017-07-06] MEDS ORDERED: MIDAZOLAM 1 MG/ML 2 ML INJ ONE (17:45)
[2017-07-06] MEDS ORDERED: FENTAnyl 50 MCG/ML VIAL ONE (17:45)
[2017-07-06] MEDS ORDERED: HEPARIN 1000 UNITS/ML 10 ML INJ ONE (17:45)
--- NOTE | 2017-07-06 17:50 | HPN ---
Date/Time of Note Date/Time of Note DATE: 07/06/17 TIME: 17:50 Interval H&P Admission Note Pt. seen H&P reviewed: No system changes YOSI ARIAS MD Jul 06, 2017 17:50
--- NOTE | 2017-07-06 17:51 | OPR ---
Date/Time of Note Date/Time of Note DATE: 07/06/17 TIME: 17:50 Operative Report Preoperative Diagnosis ESRD Postoperative Diagnosis SAME Surgeon see signature line Early Childhood Teacher Assistant NONE Anesthesia Type: moderate sedation Estimated Blood Loss: minimal Transfusion none Specimen NONE Grafts/Implants none Complications none Pt Condition Post Procedure: stable Procedure Description DATE OF OPERATION: 07/06/2017 SURGEON: Shaji Arias MD PREOPERATIVE DIAGNOSIS: ESRD POSTOPERATIVE DIAGNOSIS: ESRD ANESTHESIA: Local with Sedation BLOOD LOSS: minimal COMPLICATIONS: None. HEPARIN: None CONTRAST: None ACCESS: RIJ CLOSURE: Manual compression & 3-0 Nylon suture INDICATIONS: This is a 47-year-old male with renal failure and now requires a permanent catheter for dialysis. Patient and family have been informed of the alternatives, risks, and benefits. Risks including but not limited to bleeding, thrombosis, embolization, myocardial infarction, , device malfunction, infection, pneumothorax, and nephrotoxicity and patient has agreed to proceed. This is the first in this clinical setting PROCEDURE: 1. Ultrasound guided access of right internal jugular vein 2. Placement of permanent hemodialysis catheter DESCRIPTION: The patient was placed supine on angio bed. The bed was placed in Trendelenburg position and bilateral neck and chest were prepped and draped with sterile technique. A time-out was completed verifying correct patient, procedure, site, positioning, and catheter prior to beginning this procedure. The dialysis catheter was flushed with heparin to ensure function of each port. The skin and subcutaneous tissue were anesthetized with 1% lidocaine. Landmarks were identified and an infraclavicular stab incision was made on the anterior chest wall . Using ultrasound guidance micropuncture needle was then used to access the central vein and wire placement under fluoroscopy was performed. Using the catheter tunneler the permanent catheter was tunnelled. Amplatz wire was placed in the IVC and the track was dilated. Peal away sheath was placed over wire. At this point wire and inner dilator of the peel away sheath were removed. The permanent catheter was placed through the peal away sheath successfully. A spot fluoro was performed and catheter position was satisfactory. Each port was aspirated to ensure adequate blood flow and then flushed with heparinized saline. Each port had heparin solution placed. The Catheter was secured using 3 -0 nylon suture and a sterile dressings applied. The patient tolerated the procedure well and in fair condition. SHAJI ARIAS MD Jul 06, 2017 17:51
[2017-07-06] MEDS ORDERED: CEFAZOLIN 1 GM/50 ML (PMX) 50 ML IVPB ONE (17:52)
--- NOTE | 2017-07-06 18:26 | CONS ---
DATE OF ADMISSION: 07/04/2017 DATE OF CONSULTATION: 07/06/2017 VASCULAR SURGERY CONSULTATION Dear Doctors: Mr. Villanueva is a 47-year-old gentleman with a history of chronic kidney disease, pending renal ange lure who presented with severe prerenal azotemia and DKA with a plethora of medical conditions in ich he has been evaluated and managed by our medical team. Vascular surgery consultation was obtain ed as the patient has had a history of known chronic kidney disease that has essentially progressed to end-stage renal disease requiring hemodialysis. At the moment, the patient denies shortness of b reath, chest pain, nausea, vomiting, fever or chills. REVIEW OF SYSTEMS: A 14-point review is performed and negative except what is mentioned in the HPI. PAST MEDICAL HISTORY: Chronic kidney disease stage IV, diabetes, hypertension, coronary artery dise ase, right lower extremity nonhealing diabetic ulcer, history of DKA. PAST SURGICAL HISTORY: Testicular surgery as a child, right fifth toe amputation with a chronic wou nd. FAMILY HISTORY: Positive for diabetes and hypertension. SOCIAL HISTORY: Denies tobacco, alcohol or illicit drug use. PHYSICAL EXAMINATION: GENERAL: Alert, oriented x3. HEENT: Normocephalic, atraumatic. PERRLA, EOMI. Mucosa moist. NECK: Supple. No carotid bruit. PULMONARY: Clear to auscultation bilaterally. No crackles. CARDIOVASCULAR: S1, S2 present. No murmurs. ABDOMEN: Soft, nontender, nondistended. Bowel sounds positive. LOWER EXTREMITIES: Palpable femoral pulse. Palpable pedal pulse. Motor and sensory intact. Capil navid refill 2 to 3 seconds. UPPER EXTREMITIES: Palpable brachial pulse. Motor and sensory intact. Venipuncture in the left up per and right upper extremities. Capillary refill 2 to 3 seconds. ASSESSMENT AND PLAN: End-stage renal disease: It seems that the patient has developed renal failur e with progression to end-stage renal requiring hemodialysis. We will schedule the patient for plac ement of a permanent hemodialysis catheter and schedule the patient for a fistula creation. We will plan to obtain bilateral upper extremity vein mapping and arterial studies for access creati on. We will have cardiac evaluation for surgery clearance. Optimize vascular status (BP meds, diet, nutrition, exercise, sugar control, antiplatelets). Discussed findings, plan and management with the patient and he understands. Thank you for allowing us to partake in the care of your patient. Please call with any questions. Dictated By: YOSI DIAZ/RADHA Conf#: [id number] DID#: [id number]
[2017-07-06 21:29] VITALS: BP 163/93; RESP 20
[2017-07-06] MEDS: INSULIN GLARGINE [LANtus] 3 ML PEN SC SCH (21:47)
[2017-07-06] MEDS: NIFEdipine (XL) 60 MG TAB PO SCH (21:47)
[2017-07-07] VITALS (9 sets, daily range): BP systolic 117–152; BP diastolic 67–84; PULSE 75–81; RESP 16–20
[2017-07-07] MEDS: hydrALAzine 20 MG INJ IV PRN (00:22)
[2017-07-07] MEDS: ACCUCHECK AT 2AM (Patients on SS coverage) XX SCH (00:23)
[2017-07-07] MEDS: INSULIN ASPART [NOVOLOG] 3 ML PEN SC SCH ×7 (07:50→21:00)
--- NOTE | 2017-07-07 10:14 | RADRPT ---
PROCEDURE: US bilateral upper extremity arterial system. CLINICAL INDICATION: Bilateral upper extremity pain and swelling. End-stage renal disease. TECHNIQUE: Multiple longitudinal and transverse images of the bilateral upper extremity arterial t ree was obtained with riggins scale pulsed Doppler, and color Doppler imaging. COMPARISON: None available FINDINGS: The bilateral subclavian artery, axillary artery, and brachial artery are all normal. There is no t hrombus or occlusion. There is no significant stenosis. There is normal triphasic flow throughout bilaterally. Peak systolic velocities are as follows: Right: Subclavian: 148 cm/sec Axillary: 87 cm/sec Brachial: 121 cm/sec Left: Subclavian: 97 cm/sec Axillary: 106 cm/sec Brachial: 136 cm/sec IMPRESSION: 1. Normal bilateral upper extremity arterial system. RPTAT: QQ .Handy Naidu MD, MD Date Time Electronically viewed and signed by .Handy Naidu MD, MD on 07/07/2017 10:14 .R/
--- NOTE | 2017-07-07 10:16 | RADRPT ---
PROCEDURE: US Bilateral Upper Extremity Veins. CLINICAL INDICATION: Bilateral upper extremity swelling. Venous diameter for dialysis fistula plan kennedy. TECHNIQUE: Multiple longitudinal and transverse images of the bilateral upper extremity venous grazyna e was obtained with riggins scale and color Doppler imaging. COMPARISON: None available FINDINGS: The subclavian veins, axillary, brachial, and basilic veins are patent bilaterally. There is normal flow with augmentation and compressibility throughout. There is no thrombus or occlusion. Large por tions of the right cephalic vein are not visualized. Diameters are as follows: Right upper arm cephalic: Not visualized. Right forearm cephalic upper: Not visualized. Right forearm cephalic mid: Not visualized. Right forearm cephalic lower: 0.09 cm. Right arm basilic upper: 0.11 cm. Right arm basilic mid: 0.21 cm. Right arm basilic lower: 0.10 cm. Right forearm basilic upper: 0.08 cm. Right forearm basilic mid: 0.23 cm. Right forearm basilic lower: 0.04 cm. Left arm cephalic upper: 0.17 cm. Left arm cephalic mid: 0.07 cm. Left arm cephalic lower: 0.20 cm. Left forearm cephalic upper: 0.19 cm. Left forearm cephalic mid: 0.23 cm. Left forearm cephalic lower: 0.15 cm. Left arm basilic upper: 0.42 cm. Left arm basilic mid: 0.15 cm. Left arm basilic lower: 0.17 cm. Left forearm basilic upper: 0.07 cm. Left forearm basilic mid: 0.18 cm. Left forearm basilic lower: 0.11 cm. IMPRESSION: 1. No evidence of thrombus or occlusion of the visualized vessels. 2. Large portions of the right cephalic vein are not visualized. 3. The diameter of the vessels as indicated above. RPTAT: QQ .Handy Naidu MD, MD Date Time Electronically viewed and signed by .Handy Naidu MD, on 07/07/2017 10:16 .R/
[2017-07-07] MEDS: COLLAGENASE 30 GM TUBE TOP SCH (10:26)
--- NOTE | 2017-07-07 10:27 | RADRPT ---
PROCEDURE: XR Chest. CLINICAL INDICATION: Check line position. TECHNIQUE: Single frontal view. COMPARISON: 07/04/2017. FINDINGS: There is a new tunneled right internal jugular vein dialysis catheter with the tip in the cavoatrial junction region. The lungs are clear. The heart size is normal. There is no pleural effusion. There is no pneumothorax. IMPRESSION: 1. Right IJ dialysis catheter in satisfactory position. 2. Clear lungs. 3. No pneumothorax. 4. Otherwise unremarkable chest radiograph. RPTAT: QQ .Handy Naidu MD, MD Date Time Electronically viewed and signed by .Handy Naidu MD, MD on 07/07/2017 10:27 .R/
[2017-07-07] MEDS: NIFEdipine (XL) 60 MG TAB PO SCH ×2 (10:28→20:47)
[2017-07-07] MEDS: CITRIC ACID/NA CITRATE 30 ML CUP PO SCH ×3 (10:29→20:46)
--- NOTE | 2017-07-07 14:00 | PN ---
Date/Time of Note Date/Time of Note DATE: 07/07/17 TIME: 13:57 Assessment/Plan Lines/Catheters IV Catheter Type (from [facility]): Saline Lock Carranza in Place (from [facility]): No Assessment/Plan Chief Complaint/Hosp Course -End-stage renal disease: It seems that the patient has developed renal failure with progression to end-stage renal requiring hemodialysis. S/P permanent hemodialysis catheter -Scheduled for Sunday for LUE fistula creation. -Appreciate cardiac evaluation for surgery clearance. -Optimize vascular status (BP meds, diet, nutrition, exercise, sugar control, antiplatelets). -Discussed findings, plan and management with the patient and he understands. -Thank you for allowing us to partake in the care of your patient. Please call with Problems: Subjective 24 Hr Interval Summary no new vascular events overnight Exam/Review of Systems Vital Signs Vitals Vital Signs Date Time Temp Pulse Resp B/P Pulse Ox O2 Delivery O2 Flow Rate FiO2 07/07/17 12:40 76 07/07/17 12:10 20 07/07/17 07:58 98.7 117/67 96 07/05/17 21:25 Room Air 07/04/17 22:00 2.0 Intake and Output 07/06/17 07/06/17 07/07/17 15:00 23:00 07:00 Intake Total 225 ml 50 ml 180 ml Balance 225 ml 50 ml 180 ml Exam Free Text/Dictation GENERAL: Alert, oriented x3. PULMONARY: Clear to auscultation bilaterally CARDIOVASCULAR: S1, S2 present. ABDOMEN: Soft, nontender, nondistended. Bowel sounds positive. LOWER EXTREMITIES: Palpable femoral pulse. Palpable pedal pulse. Motor and sensory intact. Capillary refill 2 to 3 seconds. UPPER EXTREMITIES: Palpable brachial pulse. Motor and sensory intact. Venipuncture in right upper extremities. Capillary refill 2 to 3 seconds. Results Result Diagram: 07/06/1742907/06/17429 YOSI ARIAS MD Jul 07, 2017 14:00
[2017-07-07] MEDS ORDERED: NITROGLYCERIN (SL) 0.4 MG TAB SL PRN (16:30)
--- NOTE | 2017-07-07 16:40 | PN ---
Date/Time of Note Date/Time of Note DATE: 07/07/17 TIME: 16:38 Assessment/Plan VTE Prophylaxis VTE Prophylaxis Intervention: heparin Lines/Catheters IV [facility]from [facility]): Saline Lock Urinary Cath still in place: No Assessment/Plan Chief Complaint/Hosp Course 47 yo male with insulin dependent diabetes who presents with DKA, profound acidosis and MARICRUZ DKA: - Resolved DM: - Continue glargine 12 with meal time insulin QAC and sliding scale MARICRUZ on CKD V: - Suspect underlying CKD from diabetic nephropathy - Continue fluids - Renal US normal Metabolic acidosis: - Likley from renal disease as DKA is resolved - Continue bicitra per Dr Phillips - Initiate HD Anemai: - Likely from CKD PAD: - Can start antiplatelet and statin Hypertension: - Nifedipine 60, Coreg 3.125 for now, titrate as needed Problems: Subjective 24 Hr Interval Summary Free Text/Dictation Permacath placed yesterday fro HD initiation Glucose a bit low this AM, lowered glargine dose Exam/Review of Systems Vital Signs Vitals Vital Signs Date Time Temp Pulse Resp B/P Pulse Ox O2 Delivery O2 Flow Rate FiO2 07/07/17 14:10 81 07/07/17 14:10 20 07/07/17 07:58 98.7 117/67 96 07/05/17 21:25 Room Air 07/04/17 22:00 2.0 Intake and Output 07/06/17 07/06/17 07/07/17 15:00 23:00 07:00 Intake Total 225 ml 50 ml 180 ml Balance 225 ml 50 ml 180 ml Exam Constitutional: alert, oriented, well developed Psych: nl mood/affect, no complaints Head: atraumatic, normocephalic Eyes: EOMI, PERRL, nl conjunctiva, nl lids, nl sclera ENMT: nl external ears & nose, nl lips & teeth, nl nasal mucosa & septum Neck: non-tender, supple Respiratory: clear to auscultation, normal air movement Cardiovascular: nl pulses, regular rate and rhythm Gastrointestinal: nl liver, spleen, non-tender, soft Musculoskeletal: nl extremities to inspection, nl gait and stance Extremities: normal pulses 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: 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 COMMANDING OFFICER II-XII intact, nl mental status, nl speech, nl strength Skin: nl turgor, No rash or lesions Lymph: nl lymph nodes Results Result Diagram: 07/06/17 0430 07/06/17 0430 Results 24 hrs Laboratory Tests Test 07/06/17 18:49 07/06/17 21:46 07/07/17 04:32 07/07/17 08:33 Bedside Glucose 149 96 90 Hepatitis B Surface Antigen NEGATIVE Hepatitis B Core Total Antibody NEGATIVE Hepatitis C Antibody NEGATIVE HIV (1&2) Antibody NEGATIVE Test 07/07/17 14:52 Bedside Glucose 175 Medications Medications Current Medications Ondansetron HCl (Zofran Inj) 4 mg Q4H PRN IV NAUSEA AND/OR VOMITING Last administered on 07/05/17 22:13; Admin Dose 4 MG; Start 07/05/17 at 00:00 Citric Acid/ Sodium Citrate (Bicitra) 30 ml TID PO Last administered on 10:29; Admin Dose 30 ML; Start 07/05/17 at 10:00 Miscellaneous Information 1 ea NOTE XX ; Start 07/05/17 at 16:00 Glucose (Glutose) 15 gm Q15M PRN PO DECREASED GLUCOSE; Start 07/05/17 at 16:00 Glucose (Glutose) 22.5 gm Q15M PRN PO DECREASED GLUCOSE; Start 07/05/17 at 16: 00 Dextrose (D50w Syringe) 25 ml Q15M PRN IV DECREASED GLUCOSE; Start 07/05/17 at 16:00 Dextrose (D50w Syringe) 50 ml Q15M PRN IV DECREASED GLUCOSE; Start 07/05/17 at 16:00 Glucagon (Glucagen) 1 mg Q15M PRN IM DECREASED GLUCOSE; Start 07/05/17 at 16: 00 Glucose (Glutose) 15 gm Q15M PRN BUCCAL DECREASED GLUCOSE; Start 07/05/17 at 16:00 Diagnostic Test (Pha) (Accu-Chek) 1 ea 02 XX Last administered on 07/06/17 02 :00; Admin Dose 1 EA; Start 07/06/17 at 02:00 Carvedilol (Coreg) 3.125 mg BID PO Last administered on 07/07/17 10:29; Admin Dose 3.125 MG; Start 07/06/17 at 10:00 Nifedipine (Procardia Xl) 60 mg BID PO Last administered on 07/07/17 10:28; Admin Dose 60 MG; Start 07/06/17 at 21:00 Hydralazine HCl (Apresoline) 10 mg Q6H PRN IV SBP>150 mm Hg Last administered on 07/07/17 00:22; Admin Dose 10 MG; Start 07/06/17 at 11:30 Collagenase (Santyl) 1 applic DAILY TOP Last administered on 07/07/17 10:26; Admin Dose 1 APPLIC; Start 07/07/17 at 09:00 Insulin Glargine (Lantus) 12 unit QHS SC ; Start 07/07/17 at 21:00 Nitroglycerin (Nitroglycerin (Sl Tab) 0.4 Mg) 1 tab Q5M PRN SL ANGINA; Start 07/07/17 at 16:30 DIMA SMITH MD Jul 07, 2017 16:40
--- NOTE | 2017-07-07 17:27 | CONS ---
Date/Time of Note Date/Time of Note DATE: 07/07/17 TIME: 17:27 Assessment/Plan Assessment/Plan Chief Complaint/Hosp Course 47 yo male with h/o DM on insulin, previous toe amputation presenting wtih nausea and abominal discomfort and lethargy x 1 day. pt is found to have Acute kidney injury, DKA,severe metabolic acidosis with PH 7.1, Na 128 ,HCo3 6 and BUN 98 and Cr 10.86. Renal has been consulted for it Problems: Additional Assessment/Plan 1. Acute kidney Injury vs MARICRUZ on CKD due to severe prerenal azotemia + ATN From DKA- started on HD during this admission 2. Severe metabolic acidosis with PH 7.1- Resolved with HD and insulin gtt 3. Hyponatremia= Resolved 4. acute Diabeic ketoacidosis S/p insulin gtt 5. IDDM with Diabetic kidney disease Plan ; s/p Right Permacatht today 2 hr HD today then 3 hr HD on sunday d/c IV Fluids Vascular surgery to evaluate for AVF during this admission Hepatitis panel and HIV negative continue lantus 15 units SQ BID will continue to follow up Consultation Date/Type/Reason Admit Date/Time Jul 04, 2017 at 15:43 Initial Consult Date 07/04/17 Type of Consultation: NEPHROLOGY Referring Provider: DIMA SMITH MD Exam/Review of Systems Vital Signs Vitals Vital Signs Date Time Temp Pulse Resp B/P Pulse Ox O2 Delivery O2 Flow Rate FiO2 07/07/17 14:10 81 07/07/17 14:10 20 07/07/17 07:58 98.7 117/67 96 07/05/17 21:25 Room Air 07/04/17 22:00 2.0 Intake and Output 07/06/17 07/06/17 07/07/17 15:00 23:00 07:00 Intake Total 225 ml 50 ml 180 ml Balance 225 ml 50 ml 180 ml Exam Constitutional: alert, other (Tired, but communicative ) Respiratory: clear to auscultation, congested cough, diminished breath sounds Cardiovascular: other (tachycardia ), regular rate and rhythm Gastrointestinal: non-tender, soft Musculoskeletal: nl extremities to inspection, nl gait and stance, Right chest permacath Extremities: normal pulses 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: 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, nl mental status, nl speech, nl strength Results Result Diagram: 07/06/17 0430 07/06/17 0430 Results 24 hrs Laboratory Tests Test 07/06/17 18:49 07/06/17 21:46 07/07/17 04:32 07/07/17 08:33 Bedside Glucose 149 96 90 Hepatitis B Surface Antigen NEGATIVE Hepatitis B Core Total Antibody NEGATIVE Hepatitis C Antibody NEGATIVE HIV (1&2) Antibody NEGATIVE Test 07/07/17 14:52 Bedside Glucose 175 Medications Medications Current Medications Ondansetron HCl (Zofran Inj) 4 mg Q4H PRN IV NAUSEA AND/OR VOMITING Last administered on 07/05/17 22:13; Admin Dose 4 MG; Start 07/05/17 at 00:00 Citric Acid/ Sodium Citrate (Bicitra) 30 ml TID PO Last administered on 10:29; Admin Dose 30 ML; Start 07/05/17 at 10:00 Miscellaneous Information 1 ea NOTE XX ; Start 07/05/17 at 16:00 Glucose (Glutose) 15 gm Q15M PRN PO DECREASED GLUCOSE; Start 07/05/17 at 16:00 Glucose (Glutose) 22.5 gm Q15M PRN PO DECREASED GLUCOSE; Start 07/05/17 at 16: 00 Dextrose (D50w Syringe) 25 ml Q15M PRN IV DECREASED GLUCOSE; Start 07/05/17 at 16:00 Dextrose (D50w Syringe) 50 ml Q15M PRN IV DECREASED GLUCOSE; Start 07/05/17 at 16:00 Glucagon (Glucagen) 1 mg Q15M PRN IM DECREASED GLUCOSE; Start 07/05/17 at 16: 00 Glucose (Glutose) 15 gm Q15M PRN BUCCAL DECREASED GLUCOSE; Start 07/05/17 at 16:00 Diagnostic Test (Pha) (Accu-Chek) 1 ea 02 XX Last administered on 07/06/17 02 :00; Admin Dose 1 EA; Start 07/06/17 at 02:00 Carvedilol (Coreg) 3.125 mg BID PO Last administered on 07/07/17 10:29; Admin Dose 3.125 MG; Start 07/06/17 at 10:00 Nifedipine (Procardia Xl) 60 mg BID PO Last administered on 07/07/17 10:28; Admin Dose 60 MG; Start 07/06/17 at 21:00 Hydralazine HCl (Apresoline) 10 mg Q6H PRN IV SBP>150 mm Hg Last administered on 07/07/17 00:22; Admin Dose 10 MG; Start 07/06/17 at 11:30 Collagenase (Santyl) 1 applic DAILY TOP Last administered on 07/07/17t 10:26; Admin Dose 1 APPLIC; Start 07/07/17 at 09:00 Insulin Glargine (Lantus) 12 unit QHS SC ; Start 07/07/17 at 21:00 Nitroglycerin (Nitroglycerin (Sl Tab) 0.4 Mg) 1 tab Q5M PRN SL ANGINA; Start 07/07/17 at 16:30 Aspirin (Aspirin) 81 mg DAILY PO ; Start 07/08/17 at 09:00 Atorvastatin Calcium (Lipitor) 20 mg HS PO ; Start 07/07/17 at 21:00 JENNIFER LUKE MD Jul 07, 2017 17:27
[2017-07-07] MEDS: ATORVASTATIN 20 MG TAB PO SCH (20:45)
[2017-07-07] MEDS: INSULIN GLARGINE [LANtus] 3 ML PEN SC SCH (21:04)
[2017-07-08] VITALS (11 sets, daily range): BP systolic 113–169; BP diastolic 68–93; PULSE 74–89; RESP 16–19
[2017-07-08] MEDS: ACCUCHECK AT 2AM (Patients on SS coverage) XX SCH (02:00)
[2017-07-08] MEDS: INSULIN ASPART [NOVOLOG] 3 ML PEN SC SCH ×7 (07:50→20:36)
[2017-07-08] MEDS: ASPIRIN 81 MG TAB PO SCH (09:00)
[2017-07-08] MEDS: CITRIC ACID/NA CITRATE 30 ML CUP PO SCH ×3 (09:00→20:29)
[2017-07-08] MEDS: NIFEdipine (XL) 60 MG TAB PO SCH ×2 (09:00→20:32)
[2017-07-08] MEDS: COLLAGENASE 30 GM TUBE TOP SCH (09:20)
[2017-07-08] MEDS ORDERED: REGADENOSON 0.4 MG/5 ML SYG ONE (12:17)
--- NOTE | 2017-07-08 12:22 | CONS ---
Date/Time of Note Date/Time of Note DATE: 07/08/17 TIME: 12:21 Assessment/Plan Assessment/Plan Chief Complaint/Hosp Course 47 yo male with h/o DM on insulin, previous toe amputation presenting wtih nausea and abominal discomfort and lethargy x 1 day. pt is found to have Acute kidney injury, DKA,severe metabolic acidosis with PH 7.1, Na 128 ,HCo3 6 and BUN 98 and Cr 10.86. Renal has been consulted for it Problems: Additional Assessment/Plan 1. Acute kidney Injury vs MARICRUZ on CKD due to severe prerenal azotemia + ATN From DKA- started on HD during this admission 2. Severe metabolic acidosis with PH 7.1- Resolved with HD and insulin gtt 3. Hyponatremia= Resolved 4. acute Diabeic ketoacidosis S/p insulin gtt 5. IDDM with Diabetic kidney disease Plan ; s/p Right Permacatht and 2 hr HD yesterday, plan for HD today d/c IV Fluids Vascular surgery to evaluate for AVF during this admission - plan for AVF tomorrow Hepatitis panel and HIV negative continue lantus 15 units SQ BID will continue to follow up Consultation Date/Type/Reason Admit Date/Time Jul 04, 2017 at 15:43 Initial Consult Date 07/04/17 Type of Consultation: NEPHROLOGY Referring Provider: DIMA SMITH MD Exam/Review of Systems Vital Signs Vitals Vital Signs Date Time Temp Pulse Resp B/P Pulse Ox O2 Delivery O2 Flow Rate FiO2 07/08/17 08:30 75 19 07/08/17 08:04 98.0 134/79 99 07/05/17 21:25 Room Air 07/04/17 22:00 2.0 Intake and Output 07/07/17 07/07/17 07/08/17 15:00 23:00 07:00 Intake Total 500 ml 1600 ml Output Total 500 ml 1200 ml 600 ml Balance 0 ml 400 ml -600 ml Exam Constitutional: alert, awake Respiratory: clear to auscultation, congested cough, diminished breath sounds Cardiovascular: other (tachycardia ), regular rate and rhythm Gastrointestinal: non-tender, soft Musculoskeletal: nl extremities to inspection, nl gait and stance, Right chest permacath Extremities: normal pulses 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 intact, nl mental status, nl speech, nl strength Results Result Diagram: 07/06/17 0430 07/06/17 0430 Results 24 hrs Laboratory Tests Test 07/07/17 14:52 07/07/17 17:37 07/07/17 17:45 07/07/17 20:44 Bedside Glucose 175 221 H 143 Creatine Kinase 85 Creatine Kinase Index 0.4 Creatinine Kinase MB (Mass) 0.37 Troponin I < 0.012 Test 07/08/17 00:58 07/08/17 08:33 07/08/17 11:01 Creatine Kinase 70 Creatine Kinase Index 0.4 Creatinine Kinase MB (Mass) 0.26 Troponin I < 0.012 Bedside Glucose 185 Triglycerides Level 131 Cholesterol Level 93 L LDL Cholesterol, Calculated 20 HDL Cholesterol 47 Cholesterol/HDL Ratio 1.9 Medications Medications Current Medications Ondansetron HCl (Zofran Inj) 4 mg Q4H PRN IV NAUSEA AND/OR VOMITING Last administered on 07/05/17 22:13; Admin Dose 4 MG; Start 07/05/17 at 00:00 Citric Acid/ Sodium Citrate (Bicitra) 30 ml TID PO Last administered on 20:46; Admin Dose 30 ML; Start 07/05/17 at 10:00 Miscellaneous Information 1 ea NOTE XX ; Start 07/05/17 at 16:00 Glucose (Glutose) 15 gm Q15M PRN PO DECREASED GLUCOSE; Start 07/05/17 at 16:00 Glucose (Glutose) 22.5 gm Q15M PRN PO DECREASED GLUCOSE; Start 07/05/17 at 16: 00 Dextrose (D50w Syringe) 25 ml Q15M PRN IV DECREASED GLUCOSE; Start 07/05/17 at 16:00 Dextrose (D50w Syringe) 50 ml Q15M PRN IV DECREASED GLUCOSE; Start 07/05/17 at 16:00 Glucagon (Glucagen) 1 mg Q15M PRN IM DECREASED GLUCOSE; Start 07/05/17 at 16: 00 Glucose (Glutose) 15 gm Q15M PRN BUCCAL DECREASED GLUCOSE; Start 07/05/17 at 16:00 Diagnostic Test (Pha) (Accu-Chek) 1 ea 02 XX Last administered on 07/06/17 02 :00; Admin Dose 1 EA; Start 07/06/17 at 02:00 Carvedilol (Coreg) 3.125 mg BID PO Last administered on 07/07/17 20:47; Admin Dose 3.125 MG; Start 07/06/17 at 10:00 Nifedipine (Procardia Xl) 60 mg BID PO Last administered on 07/07/17 20:47; Admin Dose 60 MG; Start 07/06/17 at 21:00 Hydralazine HCl (Apresoline) 10 mg Q6H PRN IV SBP>150 mm Hg Last administered on 07/07/17 00:22; Admin Dose 10 MG; Start 07/06/17 at 11:30 Collagenase (Santyl) 1 applic DAILY TOP Last administered on 07/08/17 09:20; Admin Dose 1 APPLIC; Start 07/07/17 at 09:00 Insulin Glargine (Lantus) 12 unit QHS SC Last administered on 07/07/17 21:04 ; Admin Dose 12 UNIT; Start 07/07/17 at 21:00 Nitroglycerin (Nitroglycerin (Sl Tab) 0.4 Mg) 1 tab Q5M PRN SL ANGINA; Start 07/07/17 at 16:30 Aspirin (Aspirin) 81 mg DAILY PO ; Start 07/08/17 at 09:00 Atorvastatin Calcium (Lipitor) 20 mg HS PO Last administered on 07/07/17 20: 45; Admin Dose 20 MG; Start 07/07/17 at 21:00 JENNIFER LUKE MD Jul 08, 2017 12:22
--- NOTE | 2017-07-08 13:06 | CONS ---
Date/Time of Note Date/Time of Note DATE: 07/08/17 TIME: 13:01 Assessment/Plan Assessment/Plan Chief Complaint/Hosp Course IMP: 1.Pre-op eval for AVF 2.chest pain-intermittent/negative trop x 3 3.abnl ecg 4.PAD s/p toe amputation 5.DM with DKA Recc: -Tele -serial ecg's -Continue asa/statin/coreg/procardia XL -Lexiscan stress test today Problems: Consultation Date/Type/Reason Admit Date/Time Jul 04, 2017 at 15:43 Initial Consult Date 07/04/17 Type of Consultation: cardiology Reason for Consultation preoperative Referring Provider: DIMA SMITH MD Exam/Review of Systems Vital Signs Vitals Vital Signs Date Time Temp Pulse Resp B/P Pulse Ox O2 Delivery O2 Flow Rate FiO2 07/08/17 08:30 75 19 07/08/17 08:04 98.0 134/79 99 07/05/17 21:25 Room Air 07/04/17 22:00 2.0 Intake and Output 07/07/17 07/07/17 07/08/17 15:00 23:00 07:00 Intake Total 500 ml 1600 ml Output Total 500 ml 1200 ml 600 ml Balance 0 ml 400 ml -600 ml Exam Review of Systems: CONSTITUTIONAL: No fevers, chills. PULMONARY: No sob CARDIOVASCULAR: No chest pain/palpitations GASTROINTESTINAL: No nausea/vomiting. GENITOURINARY: No hematuria/dysuria. MUSCULOSKELETAL: No myagias/arthalgias. PSYCHIATRIC: The patient denies depression. NEUROLOGIC: No weakness Constitutional: alert Psych: no complaints Head: normocephalic ENMT: mucosa pink and moist Neck: jvd (9 cm water), supple Respiratory: diminished breath sounds (at bases/B) Cardiovascular: regular rate and rhythm Gastrointestinal: non-tender, soft Musculoskeletal: muscle tone (normal) Extremities: edema (none) 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: other (No focal deficits) Results Result Diagram: 07/06/1742907/06/17 043 Results 24 hrs Laboratory Tests Test 07/07/17 14:52 07/07/17 17:37 07/07/17 17:45 07/07/17 20:44 Bedside Glucose 175 221 H 143 Creatine Kinase 85 Creatine Kinase Index 0.4 Creatinine Kinase MB (Mass) 0.37 Troponin I < 0.012 Test 07/08/17 00:58 07/08/17 08:33 07/08/17 11:01 Creatine Kinase 70 Creatine Kinase Index 0.4 Creatinine Kinase MB (Mass) 0.26 Troponin I < 0.012 Bedside Glucose 185 Triglycerides Level 131 Cholesterol Level 93 L LDL Cholesterol, Calculated 20 HDL Cholesterol 47 Cholesterol/HDL Ratio 1.9 Medications Medications Current Medications Ondansetron HCl (Zofran Inj) 4 mg Q4H PRN IV NAUSEA AND/OR VOMITING Last administered on 07/05/17 22:13; Admin Dose 4 MG; Start 07/05/17 at 00:00 Citric Acid/ Sodium Citrate (Bicitra) 30 ml TID PO Last administered on 20:46; Admin Dose 30 ML; Start 07/05/17 at 10:00 Miscellaneous Information 1 ea NOTE XX ; Start 07/05/17 at 16:00 Glucose (Glutose) 15 gm Q15M PRN PO DECREASED GLUCOSE; Start 07/05/17 at 16:00 Glucose (Glutose) 22.5 gm Q15M PRN PO DECREASED GLUCOSE; Start 07/05/17 at 16: 00 Dextrose (D50w Syringe) 25 ml Q15M PRN IV DECREASED GLUCOSE; Start 07/05/17 at 16:00 Dextrose (D50w Syringe) 50 ml Q15M PRN IV DECREASED GLUCOSE; Start 07/05/17 at 16:00 Glucagon (Glucagen) 1 mg Q15M PRN IM DECREASED GLUCOSE; Start 07/05/17 at 16: 00 Glucose (Glutose) 15 gm Q15M PRN BUCCAL DECREASED GLUCOSE; Start 07/05/17 at 16:00 Diagnostic Test (Pha) (Accu-Chek) 1 ea 02 XX Last administered on 07/06/17 02 :00; Admin Dose 1 EA; Start 07/06/17 at 02:00 Carvedilol (Coreg) 3.125 mg BID PO Last administered on 07/07/17 20:47; Admin Dose 3.125 MG; Start 07/06/17 at 10:00 Nifedipine (Procardia Xl) 60 mg BID PO Last administered on 07/07/17 20:47; Admin Dose 60 MG; Start 07/06/17 at 21:00 Hydralazine HCl (Apresoline) 10 mg Q6H PRN IV SBP>150 mm Hg Last administered on 07/07/17 00:22; Admin Dose 10 MG; Start 07/06/17 at 11:30 Collagenase (Santyl) 1 applic DAILY TOP Last administered on 07/08/17 09:20; Admin Dose 1 APPLIC; Start 07/07/17 at 09:00 Insulin Glargine (Lantus) 12 unit QHS SC Last administered on 07/07/17 21:04 ; Admin Dose 12 UNIT; Start 07/07/17 at 21:00 Nitroglycerin (Nitroglycerin (Sl Tab) 0.4 Mg) 1 tab Q5M PRN SL ANGINA; Start 07/07/17 at 16:30 Aspirin (Aspirin) 81 mg DAILY PO ; Start 07/08/17 at 09:00 Atorvastatin Calcium (Lipitor) 20 mg HS PO Last administered on 07/07/17 20: 45; Admin Dose 20 MG; Start 07/07/17 at 21:00 FADUMO HLOLIS Jul 08, 2017 13:06
--- NOTE | 2017-07-08 13:07 | CONS ---
DATE OF ADMISSION: 07/04/2017 DATE OF CONSULTATION: 07/07/2017 CARDIOLOGY CONSULTATION REASON FOR CONSULTATION: Preoperative evaluation, chest pain, acute coronary syndrome. REQUESTING PHYSICIAN: from the vascular surgery service. HISTORY OF PRESENT ILLNESS: Mr. Villanueva is a 47-year-old male with a history of diabetes mellitus , hypertension, chronic kidney disease, not yet on hemodialysis, peripheral arterial disease, status post toe amputation; who presented with complaints of nausea, abdominal discomfort, general letharg y and chest pain described as a pressure-like sensation on the day of admit. Initially upon arrival , temperature 97.9, blood pressure 128/75, pulse 82, respiratory rate 18, saturating 100%. The fidelina ent's labs revealed a white blood cell count of 8.8, hemoglobin 9.9, platelet count of 246, a sodium of 125, potassium 5.0, creatinine 12.6, carbon dioxide of 6, glucose of 868, INR 0.9. UA negative. Hepatitis serology and HIV serology are negative. The patient's electrocardiogram revealed normal sinus rhythm, rate of 72, sinus arrhythmia and anterior T-wave inversions. Patient was diagnosed w ith diabetic ketoacidosis and required initiation of insulin therapy, IV fluid hydration and m shonda improvement. The patient's chest pain did resolve. The patient had a negative troponin, no fur ther troponins were drawn. The patient has been consulted by nephrology services with plans for hem odialysis initiation and therefore placement of AV fistula. Given these findings with previous ches t pain, multiple cardiac risk factors, cardiology consult was requested for preoperative evaluation. PAST MEDICAL HISTORY: As above in HPI. MEDICATIONS CURRENTLY IN HOSPITAL: 1. Procardia mg p.o. b.i.d. 2. Lantus. 3. Hydralazine p.r.n. 4. Carvedilol 3.125 mg p.o. b.i.d. 5. Insulin sliding scale. 6. Zofran p.r.n. 7. Bicitra p.r.n. ALLERGIES: NO KNOWN DRUG ALLERGIES. SOCIAL HISTORY: Prior tobacco. No ETOH or illicit drug use. FAMILY HISTORY: No history of sudden cardiac or early CAD. REVIEW OF SYSTEMS: As above in HPI. CONSTITUTIONAL: No fevers, chills. PULMONARY: No shortness of breath. CARDIOVASCULAR: Intermittent chest pain. GASTROINTESTINAL: No vomiting. GENITOURINARY: Renal failure. PSYCHIATRIC: No documented psych history. NEUROLOGIC: No documented history of CVA. ENDOCRINE: Diabetes mellitus. PHYSICAL EXAMINATION: VITAL SIGNS: Temperature of 98.7, blood pressure well controlled today at 117/67, pulse 72, respira tory rate 16, saturating 93%. GENERAL: The patient is alert, awake, in no acute distress. NECK: JVP approximately 8 to 9 cm water. CHEST: Fair air movement throughout. HEART: Regular rate and rhythm. Normal S1, S2. I/ systolic murmur, nondisplaced PMI. ABDOMEN: Positive bowel sounds, soft. EXTREMITIES: No pitting edema, 1+ pulses bilaterally posterior tibial. LABORATORY DATA: As above in [facility] with most recently from today sodium 141, potassium 3.7, creatinin e 8.8, BUN of 77, magnesium 1.4. White blood cell count 6.7, hemoglobin 9.0, platelet count of 235. ABG yesterday revealing a pH of 7.295, PaO2 of 99, pCO2 of 29. IMAGING STUDIES: As above in HPI with a chest x-ray from the revealing clear lungs, no pneumot horax. IMAGING STUDIES: As above in HPI, with most recently from the an upper extremity arterial ultr asound revealing a normal upper extremity arterial ultrasound examination. A venous ultrasound reve aling no evidence of thrombus or occlusion of the visualized vessels in the upper extremity veins. A chest x-ray revealed a right IJ dialysis catheter in satisfactory position, clear lungs. ELECTROCARDIOGRAM: As above in HPI. No further electrocardiograms for my review at this time. IMPRESSION: 1. Chest pain, assess for acute coronary syndrome. 2. electrocardiogram with anterior T-wave inversion. 3. Hypertension, under improved control on current antihypertensives. 4. Diabetes mellitus. 5. Renal failure, pending dialysis. 6. Peripheral arterial disease with prior toe amputation. 7. Diabetic ketoacidosis improvement. 8. Ongoing metabolic acidosis. 9. Anemia. RECOMMENDATIONS: 1. At this time, would check serial EKGs to assess for any significant ongoing changes, an EKG in t he morning, EKG for any complaints of chest pain or change in rhythm. 2. We will continue the patient's baseline antihypertensives at this time, well controlled blood pr essure on carvedilol and Procardia. 3. Will complete the patient's rule out for myocardial infarction in anticipation of upcoming surge ry and thus send troponins along with CK, CK-MB q.6 x2. 4. Check a 2D echocardiogram to further assess the patient's ejection fraction, wall motion and any major valve abnormalities in anticipation for upcoming surgery and would additionally give the fidelina ent's multiple cardiac risk factors and PID a CAD equivalent, would consider stress testing in this patient to further evaluate the possibility of significant obstructive coronary artery disease chest pain and subsequent admit to the hospital in the setting of a preoperative patient. Thank you for allowing me to take part in the care of this patient. I will continue to follow along very closely with you. Further recommendations will be made as the patient progresses through his inpatient hospital clinical course. Dictated By: FADUMO COTTER/RADHA Conf#: [id number] DID#: [id number] CC: Leni SERRANO;*End*
--- NOTE | 2017-07-08 14:21 | RADRPT ---
PROCEDURE: Nuclear medicine myocardial stress and rest scan. CLINICAL INDICATION: Chest pain. TECHNIQUE: The patient was stressed with 0.4 mg IV Lexiscan. 10 mCi technetium 99m Tetrofosmin ( Myoview) was administered rest. 30 mCi technetium 99m Tetrofosmin (Myoview) was administered duri ng stress. Images were obtained and reconstructed in the short axis, horizontal long axis, and vert ical long axis. Gated images were obtained and ejection fraction was calculated. COMPARISON: No prior study is available for comparison. FINDINGS: The stress and rest images demonstrate normal uptake throughout. There is no fixed abnormality or r eversible abnormality. There is no evidence of transient ischemic dilatation. Wall motion is normal. There is normal wall thickening during systole. Ejection fraction at stress is 71%. IMPRESSION: 1. No evidence of stress induced myocardial ischemia. 2. Ejection fraction at stress is 71%. RPTAT: QQ .Handy Naidu MD, MD Date Time Electronically viewed and signed by .Handy Naidu MD, on 07/08/2017 14:21 .R/
--- NOTE | 2017-07-08 15:12 | PN ---
Date/Time of Note Date/Time of Note DATE: 07/08/17 TIME: 15:09 Assessment/Plan VTE Prophylaxis VTE Prophylaxis Intervention: heparin, LMWH Lines/Catheters IV C[facility]ter Type [facility]from [facility] Urinary Cath still in place: No Assessment/Plan Chief Complaint/Hosp Course 47 yo male with insulin dependent diabetes who presents with DKA, profound acidosis and MARICRUZ DKA: - Resolved DM: - Continue glargine 12 with meal time insulin QAC and sliding scale MARICRUZ on CKD V -> ESRD: - HD has been initiated - Suspect underlying CKD from diabetic nephropathy - Mangemetn per Dr Phillips - Dr Girard for access Metabolic acidosis: - Continue bicitra per Dr Phillips - Initiate HD Concern for iron overload w TSat 90%: consulted Dr Jaquez for guidance on HHE workup Podiatry consult for foot wound Anemia - Likely from CKD PAD: - Can start antiplatelet and statin Hypertension: - Nifedipine 60, Coreg 3.125 for now, titrate as needed Problems: Subjective 24 Hr Interval Summary Free Text/Dictation Stable, has received HD, no complaints Exam/Review of Systems Vital Signs Vitals Vital Signs Date Time Temp Pulse Resp B/P Pulse Ox O2 Delivery O2 Flow Rate FiO2 07/08/17 08:30 75 19 07/08/17 08:04 98.0 134/79 99 07/05/17 21:25 Room Air 07/04/17 22:00 2.0 Intake and Output 07/07/17 07/07/17 07/08/17 15:00 23:00 07:00 Intake Total 500 ml 1600 ml Output Total 500 ml 1200 ml 600 ml Balance 0 ml 400 ml -600 ml Exam Appears well, no distress Permacath in chest RLE foot s/p amputation Results Result Diagram: 07/06/17 0430 07/06/17 0430 Results 24 hrs Laboratory Tests Test 07/07/17 17:37 07/07/17 17:45 07/07/17 20:44 07/08/17 00:58 Creatine Kinase 85 70 Creatine Kinase Index 0.4 0.4 Creatinine Kinase MB (Mass) 0.37 0.26 Troponin I < 0.012 < 0.012 Bedside Glucose 221 H 143 Test 07/08/17 08:33 07/08/17 11:01 07/08/17 13:59 Bedside Glucose 185 342 H Triglycerides Level 131 Cholesterol Level 93 L LDL Cholesterol, Calculated 20 HDL Cholesterol 47 Cholesterol/HDL Ratio 1.9 Medications Medications Current Medications Ondansetron HCl (Zofran Inj) 4 mg Q4H PRN IV NAUSEA AND/OR VOMITING Last administered on 07/05/17 22:13; Admin Dose 4 MG; Start 07/05/17 at 00:00 Citric Acid/ Sodium Citrate (Bicitra) 30 ml TID PO Last administered on 20:46; Admin Dose 30 ML; Start 07/05/17 at 10:00 Miscellaneous Information 1 ea NOTE XX ; Start 07/05/17 at 16:00 Glucose (Glutose) 15 gm Q15M PRN PO DECREASED GLUCOSE; Start 07/05/17 at 16:00 Glucose (Glutose) 22.5 gm Q15M PRN PO DECREASED GLUCOSE; Start 07/05/17 at 16: 00 Dextrose (D50w Syringe) 25 ml Q15M PRN IV DECREASED GLUCOSE; Start 07/05/17 at 16:00 Dextrose (D50w Syringe) 50 ml Q15M PRN IV DECREASED GLUCOSE; Start 07/05/17 at 16:00 Glucagon (Glucagen) 1 mg Q15M PRN IM DECREASED GLUCOSE; Start 07/05/17 at 16: 00 Glucose (Glutose) 15 gm Q15M PRN BUCCAL DECREASED GLUCOSE; Start 07/05/17 at 16:00 Diagnostic Test (Pha) (Accu-Chek) 1 ea 02 XX Last administered on 07/06/17 02 :00; Admin Dose 1 EA; Start 07/06/17 at 02:00 Carvedilol (Coreg) 3.125 mg BID PO Last administered on 07/07/17 20:47; Admin Dose 3.125 MG; Start 07/06/17 at 10:00 Nifedipine (Procardia Xl) 60 mg BID PO Last administered on 07/07/17 20:47; Admin Dose 60 MG; Start 07/06/17 at 21:00 Hydralazine HCl (Apresoline) 10 mg Q6H PRN IV SBP>150 mm Hg Last administered on 07/07/17 00:22; Admin Dose 10 MG; Start 07/06/17 at 11:30 Collagenase (Santyl) 1 applic DAILY TOP Last administered on 07/08/17 09:20; Admin Dose 1 APPLIC; Start 07/07/17 at 09:00 Insulin Glargine (Lantus) 12 unit QHS SC Last administered on 07/07/17 21:04 ; Admin Dose 12 UNIT; Start 07/07/17 at 21:00 Nitroglycerin (Nitroglycerin (Sl Tab) 0.4 Mg) 1 tab Q5M PRN SL ANGINA; Start 07/07/17 at 16:30 Aspirin (Aspirin) 81 mg DAILY PO ; Start 07/08/17 at 09:00 Atorvastatin Calcium (Lipitor) 20 mg HS PO Last administered on 07/07/17 20: 45; Admin Dose 20 MG; Start 07/07/17 at 21:00 DIMA SMITH MD Jul 08, 2017 15:12
--- NOTE | 2017-07-08 16:30 | RADRPT ---
Echocardiogram Report Patient Name: ENID STRONG Gender: Male Date: 1970 Study Date: 08-Jul-2017 Head Of Geography: FESTUS Location: [id number] Ref. Physician: FADUMO SCHMITT Quality: Good Procedures: Transthoracic echocardiogram with complete 2D, M-Mode, and doppler examination. Indications: Chest Pain. 2D/M Mode Doppler Measurement Value Normal Ranges Measurement Value Normal Ranges AoR Diam MM 3.3 cm BRAD Vmax 2.2 cm2 ACS MM 1.9 cm BRAD VTI 2.2 cm2 LA/Ao MM 0.9 AV Peak Justyn 1.5 m/sec LA Dimen MM 2.9 cm AV Peak PG 9.0 mmHg LVIDd 2D 4.5 3.5 - 5.6 cm LVOT Peak Justyn 1.1 m/sec LVIDs 2D 3.0 2.1 - 4.1 cm LVOT Peak PG 4.5 mmHg LVPWd 2D 1.0 0.6 - 1.1 cm MV E Peak Justyn 0.9 m/sec IVSd 2D 1.0 0.6 - 1.1 cm MV A Peak Justyn 1.0 m/sec AoR Diam 2D 3.3 2.0 - 3.7 cm MV E/A 0.9 EDV 2D 94.2 cm3 MV Decel Time 186 msec ESV 2D 27.6 cm3 MV Decel Trigg 5 EF 2D 62.0 50.0 - 65.0 % MV E/A 0.9 LVOT Diam 2.0 cm Findings Left Ventricle: Normal left ventricular systolic function. Normal left ventricular cavity size. Normal left ventricular wall thickness. Ejection fraction is visually estimated at 5560 %. Right Ventricle: Normal right ventricular size. Normal right ventricular systolic function. Left Atrium: The left atrium is normal in size. Right Atrium: The right atrium is normal in size. Mitral Valve: Normal appearance and function of the mitral valve with trace physiologic regurgitation. Aortic Valve: Normal appearance of the aortic valve. No significant aortic stenosis or insufficiency. Tricuspid Valve: Normal appearance and function of the tricuspid valve with trace physiologic regurgitation. Normal right ventricular systolic pressure. Pulmonic Valve: Normal pulmonic valve appearance. Pericardium: Normal pericardium with no significant pericardial effusion. Aorta: Normal aortic root. IVC: Normal size and normal respiratory collapse consistent with normal right atrial pressure. Conclusions 1.Normal left ventricular systolic function. Normal left ventricular cavity size. Normal left ventricular wall thickness. Ejection fraction is visually estimated at 55-60 %. 2.Normal appearance and function of the mitral valve with trace physiologic regurgitation. 3.Normal appearance and function of the tricuspid valve with trace physiologic regurgitation. Normal right ventricular systolic pressure. Electronically Signed By: Fadumo Schmitt 08-Jul-2017 16:29:53 -0700 Patient Name: ENID STRONG Study Date: 08-Jul-2017 [id number]
--- NOTE | 2017-07-08 16:30 | RADRPT ---
Echocardiogram Report Patient Name: ENID STRONG Gender: Male Date: 1970 Study Date: 08-Jul-2017 Actuarial Intern: FESTUS Location: 416 Ref. Physician: FADUMO SCHMITT Quality: Good Procedures: Transthoracic echocardiogram with complete 2D, M-Mode, and doppler examination. Indications: Chest Pain. 2D/M Mode Doppler Measurement Value Normal Ranges Measurement Value Normal Ranges AoR Diam MM 3.3 cm BRAD Vmax 2.2 cm2 ACS MM 1.9 cm BRAD VTI 2.2 cm2 LA/Ao MM 0.9 AV Peak Justyn 1.5 m/sec LA Dimen MM 2.9 cm AV Peak PG 9.0 mmHg LVIDd 2D 4.5 3.5 - 5.6 cm LVOT Peak Justyn 1.1 m/sec LVIDs 2D 3.0 2.1 - 4.1 cm LVOT Peak PG 4.5 mmHg LVPWd 2D 1.0 0.6 - 1.1 cm MV E Peak Justyn 0.9 m/sec IVSd 2D 1.0 0.6 - 1.1 cm MV A Peak Justyn 1.0 m/sec AoR Diam 2D 3.3 2.0 - 3.7 cm MV E/A 0.9 EDV 2D 94.2 cm3 MV Decel Time 186 msec ESV 2D 27.6 cm3 MV Decel Coleman 5 EF 2D 62.0 50.0 - 65.0 % MV E/A 0.9 LVOT Diam 2.0 cm Findings Left Ventricle: Normal left ventricular systolic function. Normal left ventricular cavity size. Normal left ventricular wall thickness. Ejection fraction is visually estimated at 5560 %. Right Ventricle: Normal right ventricular size. Normal right ventricular systolic function. Left Atrium: The left atrium is normal in size. Right Atrium: The right atrium is normal in size. Mitral Valve: Normal appearance and function of the mitral valve with trace physiologic regurgitation. Aortic Valve: Normal appearance of the aortic valve. No significant aortic stenosis or insufficiency. Tricuspid Valve: Normal appearance and function of the tricuspid valve with trace physiologic regurgitation. Normal right ventricular systolic pressure. Pulmonic Valve: Normal pulmonic valve appearance. Pericardium: Normal pericardium with no significant pericardial effusion. Aorta: Normal aortic root. IVC: Normal size and normal respiratory collapse consistent with normal right atrial pressure. Conclusions 1.Normal left ventricular systolic function. Normal left ventricular cavity size. Normal left ventricular wall thickness. Ejection fraction is visually estimated at 55-60 %. 2.Normal appearance and function of the mitral valve with trace physiologic regurgitation. 3.Normal appearance and function of the tricuspid valve with trace physiologic regurgitation. Normal right ventricular systolic pressure. Electronically Signed By: Fadumo Schmitt 08-Jul-2017 16:29:53 -0700 Patient Name: ENID STRONG Study Date: 08-Jul-2017 [id number]
--- NOTE | 2017-07-08 16:40 | RADRPT ---
Vent Rate: 72 bpm RR Interval: 0 msec TN Interval: 126 msec QRS Duration: 86 msec QT Interval: 430 msec QTC Interval: 470 msec P-R-T [place]: 75 - 72 - 86 degrees Normal sinus rhythm Normal ECG Electronically Signed By: Ryne Schmitt [id number]
--- NOTE | 2017-07-08 16:40 | RADRPT ---
Vent Rate: 72 bpm RR Interval: 0 msec MA Interval: 126 msec QRS Duration: 86 msec QT Interval: 430 msec QTC Interval: 470 msec P-R-T [place]: 75 - 72 - 86 degrees Normal sinus rhythm Normal ECG Electronically Signed By: Ryne Schmitt [id number]
--- NOTE | 2017-07-08 16:40 | RADRPT ---
Vent Rate: 72 bpm RR Interval: 0 msec [place] Interval: 126 msec QRS Duration: 86 msec QT Interval: 430 msec QTC Interval: 470 msec P-R-T [place]: 75 - 72 - 86 degrees Normal sinus rhythm Normal ECG Electronically Signed By: Ryne Schmitt [id number]
--- NOTE | 2017-07-08 17:09 | CONS ---
Date/Time of Note Date/Time of Note DATE: 07/08/17 TIME: 16:40 Assessment/Plan Assessment/Plan Chief Complaint/Hosp Course 47 yo male a #Concern for iron overload. - Given that patient has a ferritin of > 200 in the setting of a iron saturation 90% workup to rule out hemochromatosis is indicated. It is unlikely secondary to history of transfusion given he has had only 1 blood transfusion in the last 20 years, 2 months ago when he received 2 units of PRBD -will need to test for Hereditary Hemochromatosis HFE C282Y and H63D genes -will need to perform Abdominal MRI to evaluate liver for iron overload #Anemia -workup revealed anemia likely secondary to underlying CKD -will check Erythropoetin level and start Epogen at 5000 units TIW -will check Vitamin b12, folate, SPEP, TSH, LDH , Retic haptoglobin to complete workup #Diabetes -continue insulin. Pt on glargine 12 with meal time insulin QAC and sliding scale #CKD -Hemodialysis has been initiated -pt undergoing workup with vascular surgery for access #PVD -on ASA and statin Problems: Consultation Date/Type/Reason Admit Date/Time Jul 04, 2017 at 15:43 Date of Consultation: Jul 09, 2017 Type of Consultation: Hematology Reason for Consultation iron overloade Referring Provider: DIMA SMITH MD Hx of Present Illness 47-year-old male with multiple medical problems including diabetes mellitus, hypertension, history or previous tow amputation who presented to [facility] with abdominal pain, nausea and lethargy found to be in DKA. Pt was also found with a markedly elevated Creatinine and is now being workup to start dialysis. Routine labs indicated anemia with a Hg around 9. Pt states he had 1 blood transfusion 2mo ago when he received 2 units of PRBCs. On further workup for anemia pt was found with a mildly elevated ferritin of 269 with a markedly elevated Iron saturation of 90%. Given pt has not received IV iron in the past and only received 1 blood transfusion 2 months ago, we have been consulted given concern for underlying hemochromatosis and iron overload. Eyes: no complaints ENT: no complaints Respiratory: no complaints Cardiovascular: no complaints Gastrointestinal: nausea, pain Musculoskeletal: no complaints Skin: no complaints Neurologic: no complaints Endocrine: no complaints Lymphatic: no complaints Psychological: no complaints Immunologic: no complaints Past Medical History HTN DM CKD Peripheral Vascular Disease Hyperlipidemia Anemia Medical History: diabetes Past Surgical History tesricular surgery as child toe amputation Past Surgical Hx: other (Testicular surgery as child, toe amputation ) Family History Significant Family History: no pertinent family hx Social History Alcohol Use: none Smoking Status: Former smoker Drug Use: none Exam/Review of Systems Vital Signs Vitals Vital Signs Date Time Temp Pulse Resp B/P Pulse Ox O2 Delivery O2 Flow Rate FiO2 07/08/17 16:05 98.2 74 16 169/88 100 07/05/17 21:25 Room Air 07/04/17 22:00 2.0 Intake and Output 07/07/17 07/07/17 07/08/17 15:00 23:00 07:00 Intake Total 500 ml 1600 ml Output Total 500 ml 1200 ml 600 ml Balance 0 ml 400 ml -600 ml Exam Constitutional: alert, oriented Psych: no complaints Head: normocephalic Eyes: nl conjunctiva ENMT: nl external ears & nose Neck: non-tender, supple Respiratory: clear to auscultation Cardiovascular: regular rate and rhythm Gastrointestinal: soft Musculoskeletal: other (s/p foot amputation) Results Result Diagram: 07/06/17 0430 07/06/17 0430 Results 24 hrs Laboratory Tests Test 07/07/17 17:37 07/07/17 17:45 07/07/17 20:44 07/08/17 00:58 Creatine Kinase 85 70 Creatine Kinase Index 0.4 0.4 Creatinine Kinase MB (Mass) 0.37 0.26 Troponin I < 0.012 < 0.012 Bedside Glucose 221 H 143 Test 07/08/17 08:33 07/08/17 11:01 07/08/17 13:59 Bedside Glucose 185 342 H Triglycerides Level 131 Cholesterol Level 93 L LDL Cholesterol, Calculated 20 HDL Cholesterol 47 Cholesterol/HDL Ratio 1.9 Medications Medications Current Medications Ondansetron HCl (Zofran Inj) 4 mg Q4H PRN IV NAUSEA AND/OR VOMITING Last administered on 07/05/17 22:13; Admin Dose 4 MG; Start 07/05/17 at 00:00 Citric Acid/ Sodium Citrate (Bicitra) 30 ml TID PO Last administered on 20:46; Admin Dose 30 ML; Start 07/05/17 at 10:00 Miscellaneous Information 1 ea NOTE XX ; Start 07/05/17 at 16:00 Glucose (Glutose) 15 gm Q15M PRN PO DECREASED GLUCOSE; Start 07/05/17 at 16:00 Glucose (Glutose) 22.5 gm Q15M PRN PO DECREASED GLUCOSE; Start 07/05/17 at 16: 00 Dextrose (D50w Syringe) 25 ml Q15M PRN IV DECREASED GLUCOSE; Start 07/05/17 at 16:00 Dextrose (D50w Syringe) 50 ml Q15M PRN IV DECREASED GLUCOSE; Start 07/05/17 at 16:00 Glucagon (Glucagen) 1 mg Q15M PRN IM DECREASED GLUCOSE; Start 07/05/17 at 16: 00 Glucose (Glutose) 15 gm Q15M PRN BUCCAL DECREASED GLUCOSE; Start 07/05/17 at 16:00 Diagnostic Test (Pha) (Accu-Chek) 1 ea 02 XX Last administered on 07/06/17 02 :00; Admin Dose 1 EA; Start 07/06/17 at 02:00 Carvedilol (Coreg) 3.125 mg BID PO Last administered on 07/07/17 20:47; Admin Dose 3.125 MG; Start 07/06/17 at 10:00 Nifedipine (Procardia Xl) 60 mg BID PO Last administered on 07/07/17 20:47; Admin Dose 60 MG; Start 07/06/17 at 21:00 Hydralazine HCl (Apresoline) 10 mg Q6H PRN IV SBP>150 mm Hg Last administered on 07/07/17 00:22; Admin Dose 10 MG; Start 07/06/17 at 11:30 Collagenase (Santyl) 1 applic DAILY TOP Last administered on 07/08/17 09:20; Admin Dose 1 APPLIC; Start 07/07/17 at 09:00 Insulin Glargine (Lantus) 12 unit QHS SC Last administered on 07/07/17 21:04 ; Admin Dose 12 UNIT; Start 07/07/17 at 21:00 Nitroglycerin (Nitroglycerin (Sl Tab) 0.4 Mg) 1 tab Q5M PRN SL ANGINA; Start 07/07/17 at 16:30 Aspirin (Aspirin) 81 mg DAILY PO ; Start 07/08/17 at 09:00 Atorvastatin Calcium (Lipitor) 20 mg HS PO Last administered on 07/07/17 20: 45; Admin Dose 20 MG; Start 10/21/17 at 21:00 JANINA HAYES M.D. Jul 08, 2017 16:55
--- NOTE | 2017-07-08 17:25 | CARRPT ---
DATE OF PROCEDURE: 07/08/2017 LEXISCAN CARDIOLITE STRESS TEST REASON FOR STRESS TESTING: Chest pain. Preoperative , assess for ischemia. BASELINE VITAL SIGNS AND ELECTROCARDIOGRAM: Pulse 77, blood pressure 137/80. Electrocardiogram rev eals sinus rhythm, rate of 77, normal axis, normal intervals with lateral T-wave inversion. PROCEDURE: The patient underwent standard Lexiscan infusion protocol over 10 seconds followed by ra diolabeled tracer. The patient's test was stopped due to completion of protocol. Maximal achieved blood pressure during the test 116/65. Maximal heart rate during the test 90. ECG FINDINGS: The patient did not develop any new Lexiscan-induced ST or T-wave changes from baseli ne abnormalities. No documented PVCs. SYMPTOMS: The patient had no complaints of chest pain or shortness breath during stress testing. IMPRESSION: 1. No Lexiscan-induced ST or T-wave changes from baseline abnormalities diagnostic for ischemia. 2. No complaints of chest pain or shortness of breath during stress testing. 3. No documented premature ventricular contractions during stress test. 4. Report of nuclear images to follow in separate dictation. Dictated By: FADUMO COTTER/RADHA Conf#: [id number] DID#: [id number]
[2017-07-08] MEDS: ATORVASTATIN 20 MG TAB PO SCH (20:33)
[2017-07-08] MEDS: INSULIN GLARGINE [LANtus] 3 ML PEN SC SCH (20:35)
[2017-07-09] VITALS (21 sets, daily range): BP systolic 94–161; BP diastolic 60–86; PULSE 68–80; RESP 13–22
[2017-07-09] MEDS: ACCUCHECK AT 2AM (Patients on SS coverage) XX SCH (02:00)
[2017-07-09] MEDS ORDERED: POTASSIUM CHLORIDE (SR) 20 MEQ TAB PO STA (07:18)
[2017-07-09] MEDS: INSULIN ASPART [NOVOLOG] 3 ML PEN SC SCH ×7 (07:50→21:01)
[2017-07-09] MEDS: NIFEdipine (XL) 60 MG TAB PO SCH ×2 (08:45→21:03)
[2017-07-09] MEDS: COLLAGENASE 30 GM TUBE TOP SCH (08:51)
[2017-07-09] MEDS: ASPIRIN 81 MG TAB PO SCH (08:51)
[2017-07-09] MEDS: CITRIC ACID/NA CITRATE 30 ML CUP PO SCH ×3 (08:51→21:04)
[2017-07-09] MEDS ORDERED: POTASSIUM CHLORIDE (SR) 20 MEQ TAB PO SCH (11:30)
--- NOTE | 2017-07-09 14:19 | CONS ---
Date/Time of Note Date/Time of Note DATE: 07/09/17 TIME: 14:17 Assessment/Plan Assessment/Plan Chief Complaint/Hosp Course IMP: 1.Pre-op eval for AVF. Lexiscan this admit with NL EDF/ no ischemia. Echjo NL EF and no sig valve abnl. Thus ok to proceed to or at low to moedrate risk without further noninvasive evaluation on current medications 2.chest pain-intermittent/negative trop x 3 3.abnl ecg 4.PAD s/p toe amputation 5.DM with DKA Recc: -Tele -serial ecg's -Continue asa/statin/coreg/procardia XL Problems: Consultation Date/Type/Reason Admit Date/Time Jul 04, 2017 at 15:43 Initial Consult Date 07/04/17 Type of Consultation: cardiology Reason for Consultation pre-op Referring Provider: DIMA SMITH MD Exam/Review of Systems Vital Signs Vitals Vital Signs Date Time Temp Pulse Resp B/P Pulse Ox O2 Delivery O2 Flow Rate FiO2 07/09/17 07:55 98.2 69 18 161/85 99 07/05/17 21:25 Room Air Intake and Output 07/08/17 07/08/17 07/09/17 15:00 23:00 07:00 Intake Total 500 ml 480 ml 480 ml Output Total 1500 ml 100 ml Balance -1000 ml 380 ml 480 ml Exam Review of Systems: CONSTITUTIONAL: No fevers, chills. PULMONARY: No sob CARDIOVASCULAR: No chest pain/palpitations GASTROINTESTINAL: No nausea/vomiting. GENITOURINARY: No hematuria/dysuria. MUSCULOSKELETAL: No myagias/arthalgias. PSYCHIATRIC: The patient denies depression. NEUROLOGIC: No weakness Constitutional: alert, oriented Psych: no complaints Head: normocephalic ENMT: mucosa pink and moist Neck: jvd (8-9 cm water), non-tender, supple Respiratory: clear to auscultation Cardiovascular: regular rate and rhythm Gastrointestinal: non-tender, soft Musculoskeletal: muscle tone (normal) Extremities: edema (none) 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: other (No focal deficits) Results Result Diagram: 07/09/17 8666 07/09/17 1315 Results 24 hrs Laboratory Tests Test 07/08/17 17:40 07/08/17 20:15 07/09/17 02:03 07/09/17 04:36 Bedside Glucose 292 H 262 H 155 White Blood Count 7.7 Red Blood Count 3.16 L Hemoglobin 9.1 L Hematocrit 27.0 L Mean Corpuscular Volume 85.4 Mean Corpuscular Hemoglobin 28.8 L Mean Corpuscular Hemoglobin Concent 33.7 Red Cell Distribution Width 13.3 Platelet Count 218 Mean Platelet Volume 11.5 H Neutrophils % 61.7 Lymphocytes % 22.5 Monocytes % 11.9 H Eosinophils % 2.5 Basophils % 0.9 Nucleated Red Blood Cells % 0.0 Neutrophils # 4.7 Lymphocytes # 1.7 Monocytes # 0.9 Eosinophils # 0.2 Basophils # 0.1 Nucleated Red Blood Cells # 0.0 Sodium Level 139 Potassium Level 2.8 *L Chloride Level 100 Carbon Dioxide Level 28 Anion Gap 14 Blood Urea Nitrogen 29 H Creatinine 5.17 H Glucose Level 147 Calcium Level 8.0 L Total Bilirubin 0.1 L Direct Bilirubin 0.00 Indirect Bilirubin 0.1 Aspartate Amino Transf (AST/SGOT) 22 Alanine Aminotransferase (ALT/SGPT) 30 Alkaline Phosphatase 107 Total Protein 6.6 Albumin 3.4 Globulin 3.20 Albumin/Globulin Ratio 1.06 Test 07/09/17 08:43 07/09/17 12:19 07/09/17 12:40 07/09/17 13:15 Bedside Glucose 208 147 Urine Color YELLOW Urine Clarity SLIGHTLY CLOUDY A Urine pH 6.0 Urine Specific [place] 1.012 Urine Ketones TRACE A Urine Nitrite NEGATIVE Urine Bilirubin NEGATIVE Urine Urobilinogen NEGATIVE Urine Leukocyte Esterase TRACE A Urine Microscopic RBC 134 H Urine Microscopic WBC 15 H Urine Bacteria FEW A Urine Hemoglobin 1+ H Urine Glucose 3+ H Urine Total Protein 3+ H Potassium Level 3.6 Medications Medications Current Medications Ondansetron HCl (Zofran Inj) 4 mg Q4H PRN IV NAUSEA AND/OR VOMITING Last administered on 07/05/17 22:13; Admin Dose 4 MG; Start 07/05/17 at 00:00 Citric Acid/ Sodium Citrate (Bicitra) 30 ml TID PO Last administered on 20:29; Admin Dose 30 ML; Start 07/05/17 at 10:00 Miscellaneous Information 1 ea NOTE XX ; Start 07/05/17 at 16:00 Glucose (Glutose) 15 gm Q15M PRN PO DECREASED GLUCOSE; Start 07/05/17 at 16:00 Glucose (Glutose) 22.5 gm Q15M PRN PO DECREASED GLUCOSE; Start 07/05/17 at 16: 00 Dextrose (D50w Syringe) 25 ml Q15M PRN IV DECREASED GLUCOSE; Start 07/05/17 at 16:00 Dextrose (D50w Syringe) 50 ml Q15M PRN IV DECREASED GLUCOSE; Start 07/05/17 at 16:00 Glucagon (Glucagen) 1 mg Q15M PRN IM DECREASED GLUCOSE; Start 07/05/17 at 16: 00 Glucose (Glutose) 15 gm Q15M PRN BUCCAL DECREASED GLUCOSE; Start 07/05/17 at 16:00 Diagnostic Test (Pha) (Accu-Chek) 1 ea 02 XX Last administered on 07/06/17 02 :00; Admin Dose 1 EA; Start 07/06/17 at 02:00 Carvedilol (Coreg) 3.125 mg BID PO Last administered on 07/09/17 08:45; Admin Dose 3.125 MG; Start 07/06/17 at 10:00 Nifedipine (Procardia Xl) 60 mg BID PO Last administered on 07/09/17 08:45; Admin Dose 60 MG; Start 07/06/17 at 21:00 Hydralazine HCl (Apresoline) 10 mg Q6H PRN IV SBP>150 mm Hg Last administered on 07/07/17 00:22; Admin Dose 10 MG; Start 07/06/17 at 11:30 Collagenase (Santyl) 1 applic DAILY TOP Last administered on 07/09/17 08:51; Admin Dose 1 APPLIC; Start 07/07/17 at 09:00 Insulin Glargine (Lantus) 12 unit QHS SC Last administered on 07/08/17 20:35 ; Admin Dose 12 UNIT; Start 07/07/17 at 21:00 Nitroglycerin (Nitroglycerin (Sl Tab) 0.4 Mg) 1 tab Q5M PRN SL ANGINA; Start 07/07/17 at 16:30 Aspirin (Aspirin) 81 mg DAILY PO ; Start 07/08/17 at 09:00 Atorvastatin Calcium (Lipitor) 20 mg HS PO Last administered on 07/08/17 20: 33; Admin Dose 20 MG; Start 07/07/17 at 21:00 Potassium Chloride (Klor-Con 20) 40 meq ONCE PO Last administered on t 12:09; Admin Dose 40 MEQ; Start 07/09/17 at 11:30; Stop 07/09/17 at 15:00 FADUMO HOLLIS Jul 09, 2017 14:19
--- NOTE | 2017-07-09 16:56 | PN ---
Date/Time of Note Date/Time of Note DATE: 07/09/17 TIME: 16:39 Assessment/Plan VTE Prophylaxis VTE Prophylaxis Intervention: other Lines/Catheters IV [facility] [place] Urinary Cath still in place: No Assessment/Plan Chief Complaint/Hosp Course 1. DKA-resolved 2. Diabetes Continue Lantus and start mealtime insulin, continue sliding scale 3. CKD now having progressed to ESRD secondary to diabetic nephropathy HD has been initiated, plan for fistula placement today Nephrology following 4. Hypokalemia Replete 5. Anemia secondary to end-stage renal disease and chronic disease Epogen per renal 6. Chronic diabetic ulcer Continue wound care Podiatry consultation 7. PAD Continue aspirin and statin 8. Hypertension-stable Continue nifedipine 60, Coreg 3.125 for now, titrate as needed Problems: Subjective 24 Hr Interval Summary Constitutional: no complaints Exam/Review of Systems Vital Signs Vitals Vital Signs Date Time Temp Pulse Resp B/P Pulse Ox O2 Delivery O2 Flow Rate FiO2 07/09/17 07:55 98.2 69 18 161/85 99 07/05/17 21:25 Room Air Intake and Output 07/08/17 07/08/17 07/09/17 15:00 23:00 07:00 Intake Total 500 ml 480 ml 480 ml Output Total 1500 ml 100 ml Balance -1000 ml 380 ml 480 ml Exam Constitutional: alert, oriented Respiratory: clear to auscultation Cardiovascular: regular rate and rhythm Gastrointestinal: soft, No distended Musculoskeletal: nl extremities to inspection Results Result Diagram: 07/09/17 0436 07/09/17 1315 Results 24 hrs Laboratory Tests Test 07/08/17 17:40 07/08/17 20:15 07/09/17 02:03 07/09/17 04:36 Bedside Glucose 292 H 262 H 155 White Blood Count 7.7 Red Blood Count 3.16 L Hemoglobin 9.1 L Hematocrit 27.0 L Mean Corpuscular Volume 85.4 Mean Corpuscular Hemoglobin 28.8 L Mean Corpuscular Hemoglobin Concent 33.7 Red Cell Distribution Width 13.3 Platelet Count 218 Mean Platelet Volume 11.5 H Neutrophils % 61.7 Lymphocytes % 22.5 Monocytes % 11.9 H Eosinophils % 2.5 Basophils % 0.9 Nucleated Red Blood Cells % 0.0 Neutrophils # 4.7 Lymphocytes # 1.7 Monocytes # 0.9 Eosinophils # 0.2 Basophils # 0.1 Nucleated Red Blood Cells # 0.0 Sodium Level 139 Potassium Level 2.8 *L Chloride Level 100 Carbon Dioxide Level 28 Anion Gap 14 Blood Urea Nitrogen 29 H Creatinine 5.17 H Glucose Level 147 Calcium Level 8.0 L Total Bilirubin 0.1 L Direct Bilirubin 0.00 Indirect Bilirubin 0.1 Aspartate Amino Transf (AST/SGOT) 22 Alanine Aminotransferase (ALT/SGPT) 30 Alkaline Phosphatase 107 Total Protein 6.6 Albumin 3.4 Globulin 3.20 Albumin/Globulin Ratio 1.06 Test 07/09/17 08:43 07/09/17 12:19 07/09/17 12:40 07/09/17 13:15 Bedside Glucose 208 147 Urine Color YELLOW Urine Clarity SLIGHTLY CLOUDY A Urine pH 6.0 Urine Specific [place] 1.012 Urine Ketones TRACE A Urine Nitrite NEGATIVE Urine Bilirubin NEGATIVE Urine Urobilinogen NEGATIVE Urine Leukocyte Esterase TRACE A Urine Microscopic RBC 134 H Urine Microscopic WBC 15 H Urine Bacteria FEW A Urine Hemoglobin 1+ H Urine Glucose 3+ H Urine Total Protein 3+ H Potassium Level 3.6 Test 07/09/17 15:18 Bedside Glucose 186 Medications Medications Current Medications Ondansetron HCl (Zofran Inj) 4 mg Q4H PRN IV NAUSEA AND/OR VOMITING Last administered on 07/05/17 22:13; Admin Dose 4 MG; Start 07/05/17 at 00:00 Citric Acid/ Sodium Citrate (Bicitra) 30 ml TID PO Last administered on 20:29; Admin Dose 30 ML; Start 07/05/17 at 10:00 Miscellaneous Information 1 ea NOTE XX ; Start 07/05/17 at 16:00 Glucose (Glutose) 15 gm Q15M PRN PO DECREASED GLUCOSE; Start 07/05/17 at 16:00 Glucose (Glutose) 22.5 gm Q15M PRN PO DECREASED GLUCOSE; Start 07/05/17 at 16: 00 Dextrose (D50w Syringe) 25 ml Q15M PRN IV DECREASED GLUCOSE; Start 07/05/17 at 16:00 Dextrose (D50w Syringe) 50 ml Q15M PRN IV DECREASED GLUCOSE; Start 07/05/17 at 16:00 Glucagon (Glucagen) 1 mg Q15M PRN IM DECREASED GLUCOSE; Start 07/05/17 at 16: 00 Glucose (Glutose) 15 gm Q15M PRN BUCCAL DECREASED GLUCOSE; Start 07/05/17 at 16:00 Diagnostic Test (Pha) (Accu-Chek) 1 ea 02 XX Last administered on 07/06/17 02 :00; Admin Dose 1 EA; Start 07/06/17 at 02:00 Carvedilol (Coreg) 3.125 mg BID PO Last administered on 07/09/17 08:45; Admin Dose 3.125 MG; Start 07/06/17 at 10:00 Nifedipine (Procardia Xl) 60 mg BID PO Last administered on 07/09/17 08:45; Admin Dose 60 MG; Start 07/06/17 at 21:00 Hydralazine HCl (Apresoline) 10 mg Q6H PRN IV SBP>150 mm Hg Last administered on 07/07/17 00:22; Admin Dose 10 MG; Start 07/06/17 at 11:30 Collagenase (Santyl) 1 applic DAILY TOP Last administered on 07/09/17 08:51; Admin Dose 1 APPLIC; Start 07/07/17 at 09:00 Insulin Glargine (Lantus) 12 unit QHS SC Last administered on 07/08/17 20:35 ; Admin Dose 12 UNIT; Start 07/07/17 at 21:00 Nitroglycerin (Nitroglycerin (Sl Tab) 0.4 Mg) 1 tab Q5M PRN SL ANGINA; Start 07/07/17 at 16:30 Aspirin (Aspirin) 81 mg DAILY PO ; Start 07/08/17 at 09:00 Atorvastatin Calcium 20 mg 20 mg HS PO Last administered on 07/08/17 20:33; Admin Dose 20 MG; Start 07/07/17 at 21:00 Potassium Chloride/Sodium Chloride (KCl/NS) 110 ml @ 55 mls/hr ONCE ONCE IVPB ; Start 07/09/17 at 17:30; Stop 07/09/17 at 19:29 KAPIL PAREDES Jul 09, 2017 16:51
--- NOTE | 2017-07-09 17:06 | CONS ---
Date/Time of Note Date/Time of Note DATE: 07/09/17 TIME: 17:04 Assessment/Plan Assessment/Plan Chief Complaint/Hosp Course 47 yo male with h/o DM on insulin, previous toe amputation presenting wtih nausea and abominal discomfort and lethargy x 1 day. pt is found to have Acute kidney injury, DKA,severe metabolic acidosis with PH 7.1, Na 128 ,HCo3 6 and BUN 98 and Cr 10.86. Renal has been consulted for it Problems: Additional Assessment/Plan 1. Acute kidney Injury vs MARICRUZ on CKD due to severe prerenal azotemia + ATN From DKA- started on HD during this admission 2. Severe metabolic acidosis with PH 7.1- Resolved with HD and insulin gtt 3. Hyponatremia= Resolved 4. acute Diabeic ketoacidosis S/p insulin gtt 5. IDDM with Diabetic kidney disease Plan ; s/p Right Permacatht- plan for HD today for 3 hr plan for LUE AVF surgery today Hepatitis panel and HIV negative Outpatient HD placement has been requested will continue to follow up Consultation Date/Type/Reason Admit Date/Time Jul 04, 2017 at 15:43 Initial Consult Date 07/04/17 Type of Consultation: NEPHROLOGY Referring Provider: DIMA SMITH MD Exam/Review of Systems Vital Signs Vitals Vital Signs Date Time Temp Pulse Resp B/P Pulse Ox O2 Delivery O2 Flow Rate FiO2 07/09/17 07:55 98.2 69 18 161/85 99 07/05/17 21:25 Room Air Intake and Output 07/08/17 07/08/17 07/09/17 15:00 23:00 07:00 Intake Total 500 ml 480 ml 480 ml Output Total 1500 ml 100 ml Balance -1000 ml 380 ml 480 ml Exam Constitutional: alert, awake Respiratory: clear to auscultation, congested cough, diminished breath sounds Cardiovascular: other (tachycardia ), regular rate and rhythm Gastrointestinal: non-tender, soft Musculoskeletal: nl extremities to inspection, nl gait and stance, Right chest permacath Extremities: normal pulses 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: ENVELOPE ADJUSTER II-XII intact, nl mental status, nl speech, nl strength Results Result Diagram: 07/09/17 0436 07/09/17 1315 Results 24 hrs Laboratory Tests Test 07/08/17 17:40 07/08/17 20:15 07/09/17 02:03 07/09/17 04:36 Bedside Glucose 292 H 262 H 155 White Blood Count 7.7 Red Blood Count 3.16 L Hemoglobin 9.1 L Hematocrit 27.0 L Mean Corpuscular Volume 85.4 Mean Corpuscular Hemoglobin 28.8 L Mean Corpuscular Hemoglobin Concent 33.7 Red Cell Distribution Width 13.3 Platelet Count 218 Mean Platelet Volume 11.5 H Neutrophils % 61.7 Lymphocytes % 22.5 Monocytes % 11.9 H Eosinophils % 2.5 Basophils % 0.9 Nucleated Red Blood Cells % 0.0 Neutrophils # 4.7 Lymphocytes # 1.7 Monocytes # 0.9 Eosinophils # 0.2 Basophils # 0.1 Nucleated Red Blood Cells # 0.0 Sodium Level 139 Potassium Level 2.8 *L Chloride Level 100 Carbon Dioxide Level 28 Anion Gap 14 Blood Urea Nitrogen 29 H Creatinine 5.17 H Glucose Level 147 Calcium Level 8.0 L Total Bilirubin 0.1 L Direct Bilirubin 0.00 Indirect Bilirubin 0.1 Aspartate Amino Transf (AST/SGOT) 22 Alanine Aminotransferase (ALT/SGPT) 30 Alkaline Phosphatase 107 Total Protein 6.6 Albumin 3.4 Globulin 3.20 Albumin/Globulin Ratio 1.06 Test 07/09/17 08:43 07/09/17 12:19 07/09/17 12:40 07/09/17 13:15 Bedside Glucose 208 147 Urine Color YELLOW Urine Clarity SLIGHTLY CLOUDY A Urine pH 6.0 Urine Specific [place] 1.012 Urine Ketones TRACE A Urine Nitrite NEGATIVE Urine Bilirubin NEGATIVE Urine Urobilinogen NEGATIVE Urine Leukocyte Esterase TRACE A Urine Microscopic RBC 134 H Urine Microscopic WBC 15 H Urine Bacteria FEW A Urine Hemoglobin 1+ H Urine Glucose 3+ H Urine Total Protein 3+ H Potassium Level 3.6 Test 07/09/17 15:18 Bedside Glucose 186 Medications Medications Current Medications Ondansetron HCl (Zofran Inj) 4 mg Q4H PRN IV NAUSEA AND/OR VOMITING Last administered on 07/05/17 22:13; Admin Dose 4 MG; Start 07/05/17 at 00:00 Citric Acid/ Sodium Citrate (Bicitra) 30 ml TID PO Last administered on 20:29; Admin Dose 30 ML; Start 07/05/17 at 10:00 Miscellaneous Information 1 ea NOTE XX ; Start 07/05/17 at 16:00 Glucose (Glutose) 15 gm Q15M PRN PO DECREASED GLUCOSE; Start 07/05/17 at 16:00 Glucose (Glutose) 22.5 gm Q15M PRN PO DECREASED GLUCOSE; Start 07/05/17 at 16: 00 Dextrose (D50w Syringe) 25 ml Q15M PRN IV DECREASED GLUCOSE; Start 07/05/17 at 16:00 Dextrose (D50w Syringe) 50 ml Q15M PRN IV DECREASED GLUCOSE; Start 07/05/17 at 16:00 Glucagon (Glucagen) 1 mg Q15M PRN IM DECREASED GLUCOSE; Start 07/05/17 at 16: 00 Glucose (Glutose) 15 gm Q15M PRN BUCCAL DECREASED GLUCOSE; Start 07/05/17 at 16:00 Diagnostic Test (Pha) (Accu-Chek) 1 ea 02 XX Last administered on 07/06/17 02 :00; Admin Dose 1 EA; Start 07/06/17 at 02:00 Carvedilol (Coreg) 3.125 mg BID PO Last administered on 07/09/17 08:45; Admin Dose 3.125 MG; Start 07/06/17 at 10:00 Nifedipine (Procardia Xl) 60 mg BID PO Last administered on 07/09/17 08:45; Admin Dose 60 MG; Start 07/06/17 at 21:00 Hydralazine HCl (Apresoline) 10 mg Q6H PRN IV SBP>150 mm Hg Last administered on 07/07/17 00:22; Admin Dose 10 MG; Start 07/06/17 at 11:30 Collagenase (Santyl) 1 applic DAILY TOP Last administered on 07/09/17 08:51; Admin Dose 1 APPLIC; Start 07/07/17 at 09:00 Insulin Glargine (Lantus) 12 unit QHS SC Last administered on 07/08/17 20:35 ; Admin Dose 12 UNIT; Start 07/07/17 at 21:00 Nitroglycerin (Nitroglycerin (Sl Tab) 0.4 Mg) 1 tab Q5M PRN SL ANGINA; Start 07/07/17 at 16:30 Aspirin (Aspirin) 81 mg DAILY PO ; Start 07/08/17 at 09:00 Atorvastatin Calcium 20 mg 20 mg HS PO Last administered on 07/08/17 20:33; Admin Dose 20 MG; Start 07/07/17 at 21:00 Potassium Chloride/Sodium Chloride (KCl/NS) 110 ml @ 55 mls/hr ONCE ONCE IVPB ; Start 07/09/17 at 17:30; Stop 07/09/17 at 19:29 JENNIFER LUKE MD Jul 09, 2017 17:06
[2017-07-09] MEDS ORDERED: GELATIN SIZE 100 SPONGE ONE (17:23)
[2017-07-09] MEDS ORDERED: LIDOCAINE 1% (STERILE-PAK) 30 ML INJ ONE (17:24)
[2017-07-09] MEDS ORDERED: HEPARIN 1000 UNITS/ML 10 ML INJ ONE ×2 (17:24→18:29)
[2017-07-09] MEDS ORDERED: MIDAZOLAM 1 MG/ML 2 ML INJ ONE (17:30)
[2017-07-09] MEDS ORDERED: FENTAnyl 50 MCG/ML VIAL ONE (17:30)
[2017-07-09] MEDS ORDERED: POTASSIUM CHLORIDE 20 MEQ in SOD CHLORIDE 0.9% 100 ML IVPB ONE (17:30)
[2017-07-09] MEDS ORDERED: ROPIVACAINE 0.5 % 30 ML VIAL ONE (17:31)
--- NOTE | 2017-07-09 17:37 | HPN ---
Date/Time of Note Date/Time of Note DATE: 07/09/17 TIME: 17:37 Interval H&P Admission Note Pt. seen H&P reviewed: No system changes YOSI ARIAS MD Jul 09, 2017 17:37
--- NOTE | 2017-07-09 17:41 | OPR ---
Date/Time of Note Date/Time of Note DATE: 07/09/17 TIME: 17:39 Operative Report Procedure Date: Jul 09, 2017 Preoperative Diagnosis esrd Postoperative Diagnosis SAME Operation/Procedure Performed LEFT ARM BRACHIOCEPHALIC FISTULA CREATION Surgeon see signature line [employer] Experimental Mechanic NONE Anesthesia Type: moderate sedation, other (BLOCK) Estimated Blood Loss: minimal Transfusion none Specimen NONE Grafts/Implants none Complications none Pt Condition Post Procedure: stable Disposition: PACU Procedure Description DATE OF OPERATION: 07/09/2017 SURGEON: Shaji Arias MD PREOPERATIVE DIAGNOSIS: ESRD POSTOPERATIVE DIAGNOSIS: ESRD PROCEDURE: Creation of a left arm brachiocephalic arteriovenous fistula. ANESTHESIA: Regional Block and Local COMPLICATIONS: None. ESTIMATED BLOOD LOSS: Minimal. TRANSFUSIONS: None SPECIMEN: None. INDICATIONS: This is a 47-year-old diabetic male with a history of impending end-stage renal artery disease. The risks and benefits of the procedure were discussed with the patient and not limited to , ME, pneumonia, stroke, infection, thrombosis of graft and arteriovenous fistula, nerve injury, limb loss, revisions of AVF, steal and she elected to undergo surgical intervention. DESCRIPTION: The patient was placed in supine position on the operating room table. The arms were placed at 80 degrees. The normal bony prominences were padded. The anesthesia team had placed the appropriate lines and anesthesia was induced. Time out performed and the appropriate site was marked and confirmed. The patient's upper extremity prepped and draped in the usual standard sterile fashion. Preoperative antibiotics were administered prior to the skin incision since the patient already had been on antibiotics. A 6 cm transverse skin incision was then performed below the antecubital fossa. The cephalic vein was identified and dissected for a segment of nearly 5 cm. Dissection was then carried as distally as possible through that incision. Attention was then directed to the brachial artery. The tendinous aponeurosis of the biceps muscle was then incised. Location of the brachial artery was then identified by palpation. The soft tissue over the brachial artery was then incised, and the brachial artery was then confirmed. The patient was given 2500 units of heparin intravenously. The cephalic vein was then ligated at its most distal end. Yasargil clamps were then applied on the brachial artery, and a 6 mm incision in the anterior wall of the brachial artery was then performed. The cephalic vein was then gently curved and allowed to lay over the arteriotomy. The end of the vein was spatulated to match the side of the arteriotomy. The anastomosis was then performed using a running 6-0 Prolene suture. At the completion of the suture line the brachial artery was forward-flushed and then allowed to backbleed. The cephalic vein was also allowed to backbleed. The anastomosis was irrigated with heparinized saline solution. The suture was then tied and the suture line evaluated for hemostasis, which was adequate. There was evidence of excellent thrill in the cephalic vein. There was a strong pulse palpable in the brachial, radial, and ulnar arteries at the wrist. There was no evidence of any kinks. The subcutaneous tissue was then closed with a 3-0 Vicryl running suture and the skin closed with brett. There was evidence of excellent thrill in the cephalic vein after the wound closure. The patient tolerated the procedure well, was taken to the postanesthesia care unit in stable condition. All instruments, catheters, sponge, and needles were corrected x2. SHAJI ARIAS MD Jul 09, 2017 17:41
[2017-07-09] MEDS ORDERED: morphine 10 MG INJ ONE (17:54)
[2017-07-09] MEDS ORDERED: THROMBIN 5000 UNIT VIAL ONE (18:14)
[2017-07-09] MEDS ORDERED: ONDANSETRON 4 MG INJ ONE (19:12)
[2017-07-09] MEDS ORDERED: CEFAZOLIN 1 GM INJ ONE (19:18)
[2017-07-09] MEDS: INSULIN GLARGINE [LANtus] 3 ML PEN SC SCH (21:02)
[2017-07-09] MEDS: ATORVASTATIN 20 MG TAB PO SCH (21:03)
[2017-07-10] VITALS (10 sets, daily range): BP systolic 109–129; BP diastolic 65–72; PULSE 64–68; RESP 17–20
[2017-07-10] MEDS: ONDANSETRON 4 MG INJ IV PRN (01:03)
[2017-07-10] MEDS: ACCUCHECK AT 2AM (Patients on SS coverage) XX SCH (01:13)
[2017-07-10] MEDS ORDERED: ACETAMINOPHEN 325 MG TAB PO PRN (01:30)
[2017-07-10] MEDS: ASPIRIN 81 MG TAB PO SCH (09:29)
[2017-07-10] MEDS: CITRIC ACID/NA CITRATE 30 ML CUP PO SCH ×3 (09:29→20:32)
[2017-07-10] MEDS: NIFEdipine (XL) 60 MG TAB PO SCH ×2 (09:30→20:32)
[2017-07-10] MEDS: INSULIN ASPART [NOVOLOG] 3 ML PEN SC SCH ×7 (09:31→20:37)
--- NOTE | 2017-07-10 11:23 | CONS ---
Date/Time of Note Date/Time of Note DATE: 07/10/17 TIME: 11:22 Assessment/Plan Assessment/Plan Additional Assessment/Plan 1.Pre-op eval for AVF. Lexiscan this admit with NL EDF/ no ischemia. Echjo NL EF and no sig valve abnl. Thus ok to proceed to or at low to moedrate risk without further noninvasive evaluation on current medications- no CP now, of ftele 2.chest pain-intermittent/negative trop x 3 - r/o [place], negative test 3.abnl ecg - no intervention planned 4.PAD s/p toe amputation 5.DM with DKA Consultation Date/Type/Reason Admit Date/Time Jul 04, 2017 at 15:43 Initial Consult Date 07/09/17 Type of Consultation: NEPHROLOGY Referring Provider: DIMA SMITH MD 24 HR Interval Summary Free Text/Dictation NO CP now, off tele - con't to recover ROS: No fever, no chills, no nausea, no vomiting, no diarrhea/constipation No recent weight changes No chest pain, no PND, no orthopnea No dizziness, blurred vision No thirst, no heat or cold intolerance Exam/Review of Systems Vital Signs Vitals Vital Signs Date Time Temp Pulse Resp B/P Pulse Ox O2 Delivery O2 Flow Rate FiO2 07/10/17 08:30 66 07/10/17 08:30 17 07/10/17 08:06 98.1 110/69 99 07/09/17 19:36 Room Air Intake and Output 07/09/17 07/09/17 07/10/17 15:00 23:00 07:00 Intake Total 350 ml 430 ml Output Total 10 ml 250 ml Balance 340 ml 180 ml Exam General: WN/WD/NAD, AOx 3 HEENT: Unicetric/atraumatic/EOMI (follow commands) NECK: JVD elevated, no thyromegaly Lymph: no lymphadenopathy HEART: regular with no S3, II/ systolic murmur at apex LUNGS: Coarse sounds ABD: soft, NT, ND, +BS : Intact Neuro: non focal SKIN: chronic changes EXT: trace edema, post op Results Result Diagram: 07/10/17 0443 07/10/17 0443 Results 24 hrs Laboratory Tests Test 07/09/17 12:19 07/09/17 12:40 07/09/17 13:15 07/09/17 15:18 Bedside Glucose 147 186 Urine Color YELLOW Urine Clarity SLIGHTLY CLOUDY A Urine pH 6.0 Urine Specific [place] 1.012 Urine Ketones TRACE A Urine Nitrite NEGATIVE Urine Bilirubin NEGATIVE Urine Urobilinogen NEGATIVE Urine Leukocyte Esterase TRACE A Urine Microscopic RBC 134 H Urine Microscopic WBC 15 H Urine Bacteria FEW A Urine Hemoglobin 1+ H Urine Glucose 3+ H Urine Total Protein 3+ H Potassium Level 3.6 Test 07/09/17 20:38 07/10/17 01:10 07/10/17 04:43 07/10/17 09:27 Bedside Glucose 261 H 154 180 White Blood Count 15.3 #H Red Blood Count 3.11 L Hemoglobin 8.8 L Hematocrit 27.3 L Mean Corpuscular Volume 87.8 Mean Corpuscular Hemoglobin 28.3 L Mean Corpuscular Hemoglobin Concent 32.2 Red Cell Distribution Width 13.7 Platelet Count 189 Mean Platelet Volume 11.5 H Neutrophils % 81.9 H Lymphocytes % 9.4 L Monocytes % 6.9 Eosinophils % 0.6 Basophils % 0.5 Nucleated Red Blood Cells % 0.0 Neutrophils # 12.5 H Lymphocytes # 1.4 Monocytes # 1.1 H Eosinophils # 0.1 Basophils # 0.1 Nucleated Red Blood Cells # 0.0 Sodium Level 141 Potassium Level 3.9 Chloride Level 107 Carbon Dioxide Level 27 Anion Gap 11 Blood Urea Nitrogen 35 H Creatinine 5.69 H Glucose Level 189 Calcium Level 8.4 Medications Medications Current Medications Ondansetron HCl (Zofran Inj) 4 mg Q4H PRN IV NAUSEA AND/OR VOMITING Last administered on 07/10/17 01:03; Admin Dose 4 MG; Start 07/05/17 at 00:00 Citric Acid/ Sodium Citrate (Bicitra) 30 ml TID PO Last administered on 09:29; Admin Dose 30 ML; Start 07/05/17 at 10:00 Miscellaneous Information 1 ea NOTE XX ; Start 07/05/17 at 16:00 Glucose (Glutose) 15 gm Q15M PRN PO DECREASED GLUCOSE; Start 07/05/17 at 16:00 Glucose (Glutose) 22.5 gm Q15M PRN PO DECREASED GLUCOSE; Start 07/05/17 at 16: 00 Dextrose (D50w Syringe) 25 ml Q15M PRN IV DECREASED GLUCOSE; Start 07/05/17 at 16:00 Dextrose (D50w Syringe) 50 ml Q15M PRN IV DECREASED GLUCOSE; Start 07/05/17 at 16:00 Glucagon (Glucagen) 1 mg Q15M PRN IM DECREASED GLUCOSE; Start 07/05/17 at 16: 00 Glucose (Glutose) 15 gm Q15M PRN BUCCAL DECREASED GLUCOSE; Start 07/05/17 at 16:00 Diagnostic Test (Pha) (Accu-Chek) 1 ea 02 XX Last administered on 07/10/17 01 :13; Admin Dose 1 EA; Start 07/06/17 at 02:00 Carvedilol (Coreg) 3.125 mg BID PO Last administered on 07/10/17 09:30; Admin Dose 3.125 MG; Start 07/06/17 at 10:00 Nifedipine (Procardia Xl) 60 mg BID PO Last administered on 07/10/17 09:30; Admin Dose 60 MG; Start 07/06/17 at 21:00 Hydralazine HCl (Apresoline) 10 mg Q6H PRN IV SBP>150 mm Hg Last administered on 07/07/17 00:22; Admin Dose 10 MG; Start 07/06/17 at 11:30 Collagenase (Santyl) 1 applic DAILY TOP Last administered on 07/09/17 08:51; Admin Dose 1 APPLIC; Start 07/07/17 at 09:00 Insulin Glargine (Lantus) 12 unit QHS SC Last administered on 07/09/17 21:02 ; Admin Dose 12 UNIT; Start 07/07/17 at 21:00 Nitroglycerin (Nitroglycerin (Sl Tab) 0.4 Mg) 1 tab Q5M PRN SL ANGINA; Start 07/07/17 at 16:30 Aspirin (Aspirin) 81 mg DAILY PO Last administered on 07/10/17 09:29; Admin Dose 81 MG; Start 07/08/17 at 09:00 Atorvastatin Calcium (Lipitor) 20 mg HS PO Last administered on 07/09/17 21: 03; Admin Dose 20 MG; Start 07/07/17 at 21:00 Acetaminophen (Tylenol Tab) 650 mg Q6H PRN PO PAIN AND OR ELEVATED TEMP Last administered on 07/10/17 01:41; Admin Dose 650 MG; Start 07/10/17 at 01:30 Epoetin Johnie (Epogen (Neserd)) 6,000 units [email or web address]@[facility] [place] ; Start 07/11/17 at 17: 00 ANNA DE LOS SANTOS MD Jul 10, 2017 11:23
[2017-07-10] MEDS: COLLAGENASE 30 GM TUBE TOP SCH (12:00)
--- NOTE | 2017-07-10 13:27 | CONS ---
Date/Time of Note Date/Time of Note DATE: 07/10/17 TIME: 13:25 Assessment/Plan Assessment/Plan Chief Complaint/Hosp Course 47 yo male a #Concern for iron overload. - Given that patient has a ferritin of > 200 in the setting of a iron saturation 90% workup to rule out hemochromatosis is indicated. It is unlikely secondary to history of transfusion given he has had only 1 blood transfusion in the last 20 years, 2 months ago when he received 2 units of PRBD -sent test for Hereditary Hemochromatosis HFE C282Y and H63D genes - Abdominal MRI to evaluate liver for iron overload has been ordered. if this cannot be done as an in patient, can perform as an outpatient #Anemia -workup revealed anemia likely secondary to underlying CKD -will check Erythropoietin level and start Epogen at 5000 units TIW -will check Vitamin b12, folate, SPEP, TSH, LDH , Retic haptoglobin to complete workup #Diabetes -continue insulin. Pt on glargine 12 with meal time insulin QAC and sliding scale #CKD -Hemodialysis has been initiated -pt undergoing workup with vascular surgery for access #PVD -on ASA and statin Problems: Consultation Date/Type/Reason Admit Date/Time Jul 04, 2017 at 15:43 Initial Consult Date 07/09/17 Type of Consultation: Hematology Reason for Consultation iron overload Referring Provider: DIMA SMITH MD 24 HR Interval Summary Free Text/Dictation pt underwent LEFT ARM BRACHIOCEPHALIC FISTULA CREATION. currently very nauseous Exam/Review of Systems Vital Signs Vitals Vital Signs Date Time Temp Pulse Resp B/P Pulse Ox O2 Delivery O2 Flow Rate FiO2 07/10/17 08:30 66 07/10/17 08:30 17 07/10/17 08:06 98.1 110/69 99 07/09/17 19:36 Room Air Intake and Output 07/09/17 07/09/17 07/10/17 15:00 23:00 07:00 Intake Total 350 ml 430 ml Output Total 10 ml 250 ml Balance 340 ml 180 ml Exam Constitutional: alert, oriented Psych: no complaints Head: normocephalic Eyes: nl conjunctiva ENMT: nl external ears & nose Neck: non-tender, supple Respiratory: clear to auscultation Cardiovascular: regular rate and rhythm Gastrointestinal: soft Musculoskeletal: nl extremities to inspection, nl gait and stance Extremities: normal pulses Results Result Diagram: 07/10/17 0443 07/10/17 0443 Results 24 hrs Laboratory Tests Test 07/09/17 15:18 07/09/17 20:38 07/10/17 01:10 07/10/17 04:43 Bedside Glucose 186 261 H 154 White Blood Count 15.3 #H Red Blood Count 3.11 L Hemoglobin 8.8 L Hematocrit 27.3 L Mean Corpuscular Volume 87.8 Mean Corpuscular Hemoglobin 28.3 L Mean Corpuscular Hemoglobin Concent 32.2 Red Cell Distribution Width 13.7 Platelet Count 189 Mean Platelet Volume 11.5 H Neutrophils % 81.9 H Lymphocytes % 9.4 L Monocytes % 6.9 Eosinophils % 0.6 Basophils % 0.5 Nucleated Red Blood Cells % 0.0 Neutrophils # 12.5 H Lymphocytes # 1.4 Monocytes # 1.1 H Eosinophils # 0.1 Basophils # 0.1 Nucleated Red Blood Cells # 0.0 Sodium Level 141 Potassium Level 3.9 Chloride Level 107 Carbon Dioxide Level 27 Anion Gap 11 Blood Urea Nitrogen 35 H Creatinine 5.69 H Glucose Level 189 Calcium Level 8.4 Test 07/10/17 09:27 07/10/17 12:53 Bedside Glucose 180 340 H Medications Medications Current Medications Ondansetron HCl (Zofran Inj) 4 mg Q4H PRN IV NAUSEA AND/OR VOMITING Last administered on 07/10/17 01:03; Admin Dose 4 MG; Start 07/05/17 at 00:00 Citric Acid/ Sodium Citrate (Bicitra) 30 ml TID PO Last administered on 13:06; Admin Dose 30 ML; Start 07/05/17 at 10:00 Miscellaneous Information 1 ea NOTE XX ; Start 07/05/17 at 16:00 Glucose (Glutose) 15 gm Q15M PRN PO DECREASED GLUCOSE; Start 07/05/17 at 16:00 Glucose (Glutose) 22.5 gm Q15M PRN PO DECREASED GLUCOSE; Start 07/05/17 at 16: 00 Dextrose (D50w Syringe) 25 ml Q15M PRN IV DECREASED GLUCOSE; Start 07/05/17 at 16:00 Dextrose (D50w Syringe) 50 ml Q15M PRN IV DECREASED GLUCOSE; Start 07/05/17 at 16:00 Glucagon (Glucagen) 1 mg Q15M PRN IM DECREASED GLUCOSE; Start 07/05/17 at 16: 00 Glucose (Glutose) 15 gm Q15M PRN BUCCAL DECREASED GLUCOSE; Start 07/05/17 at 16:00 Diagnostic Test (Pha) (Accu-Chek) 1 ea 02 XX Last administered on 07/10/17 01 :13; Admin Dose 1 EA; Start 07/06/17 at 02:00 Carvedilol (Coreg) 3.125 mg BID PO Last administered on 07/10/17 09:30; Admin Dose 3.125 MG; Start 07/06/17 at 10:00 Nifedipine (Procardia Xl) 60 mg BID PO Last administered on 07/10/17 09:30; Admin Dose 60 MG; Start 07/06/17 at 21:00 Hydralazine HCl (Apresoline) 10 mg Q6H PRN IV SBP>150 mm Hg Last administered on 07/07/17 00:22; Admin Dose 10 MG; Start 07/06/17 at 11:30 Collagenase (Santyl) 1 applic DAILY TOP Last administered on 07/09/17 08:51; Admin Dose 1 APPLIC; Start 07/07/17 at 09:00 Insulin Glargine (Lantus) 12 unit QHS SC Last administered on 07/09/17 21:02 ; Admin Dose 12 UNIT; Start 07/07/17 at 21:00 Nitroglycerin (Nitroglycerin (Sl Tab) 0.4 Mg) 1 tab Q5M PRN SL ANGINA; Start 07/07/17 at 16:30 Aspirin (Aspirin) 81 mg DAILY PO Last administered on 07/10/17 09:29; Admin Dose 81 MG; Start 07/08/17 at 09:00 Atorvastatin Calcium (Lipitor) 20 mg HS PO Last administered on 07/09/17 21: 03; Admin Dose 20 MG; Start 07/07/17 at 21:00 Acetaminophen (Tylenol Tab) 650 mg Q6H PRN PO PAIN AND OR ELEVATED TEMP Last administered on 07/10/17 01:41; Admin Dose 650 MG; Start 07/10/17 at 01:30 Epoetin Johnie (Epogen (Neserd)) 6,000 units MoWeFr@[facility] [place] ; Start 07/11/17 at 17: 00 JANINA HAYES M.D. Jul 10, 2017 13:27
--- NOTE | 2017-07-10 15:43 | PN ---
Date/Time of Note Date/Time of Note DATE: 07/10/17 TIME: 15:40 Assessment/Plan VTE Prophylaxis VTE Prophylaxis Intervention: heparin Lines/Catheters IV [facility] Type (from [facility] permacath Urinary Cath still in place: No Assessment/Plan Chief Complaint/Hosp Course 1. DKA-resolved 2. Diabetes Continue Lantus and start mealtime insulin, continue sliding scale 3. CKD now having progressed to ESRD secondary to diabetic nephropathy HD has been initiated, status post fistula placement, patient will need outpatient HD arrangements Nephrology following 4. Hypokalemia Replete 5. Anemia secondary to end-stage renal disease and chronic disease Epogen per renal 6. Chronic diabetic ulcer Continue wound care Podiatry consultation obtained 7. PAD Continue aspirin and statin 8. Hypertension-stable Continue nifedipine 60, Coreg 3.125 for now, titrate as needed Prophylaxis: Heparin Problems: Exam/Review of Systems Vital Signs Vitals Vital Signs Date Time Temp Pulse Resp B/P Pulse Ox O2 Delivery O2 Flow Rate FiO2 07/10/17 14:00 98.2 87 18 116/68 99 07/09/17 19:36 Room Air Intake and Output 07/09/17 07/09/17 07/10/17 15:00 23:00 07:00 Intake Total 350 ml 430 ml Output Total 10 ml 250 ml Balance 340 ml 180 ml Results Result Diagram: 07/10/17 0443 07/10/17 0443 Results 24 hrs Laboratory Tests Test 07/09/17 20:38 07/10/17 01:10 07/10/17 04:43 07/10/17 09:27 Bedside Glucose 261 H 154 180 White Blood Count 15.3 #H Red Blood Count 3.11 L Hemoglobin 8.8 L Hematocrit 27.3 L Mean Corpuscular Volume 87.8 Mean Corpuscular Hemoglobin 28.3 L Mean Corpuscular Hemoglobin Concent 32.2 Red Cell Distribution Width 13.7 Platelet Count 189 Mean Platelet Volume 11.5 H Neutrophils % 81.9 H Lymphocytes % 9.4 L Monocytes % 6.9 Eosinophils % 0.6 Basophils % 0.5 Nucleated Red Blood Cells % 0.0 Neutrophils # 12.5 H Lymphocytes # 1.4 Monocytes # 1.1 H Eosinophils # 0.1 Basophils # 0.1 Nucleated Red Blood Cells # 0.0 Sodium Level 141 Potassium Level 3.9 Chloride Level 107 Carbon Dioxide Level 27 Anion Gap 11 Blood Urea Nitrogen 35 H Creatinine 5.69 H Glucose Level 189 Calcium Level 8.4 Test 07/10/17 12:53 Bedside Glucose 340 H Medications Medications Current Medications Ondansetron HCl (Zofran Inj) 4 mg Q4H PRN IV NAUSEA AND/OR VOMITING Last administered on 07/10/17 01:03; Admin Dose 4 MG; Start 07/05/17 at 00:00 Citric Acid/ Sodium Citrate (Bicitra) 30 ml TID PO Last administered on 13:06; Admin Dose 30 ML; Start 07/05/17 at 10:00 Miscellaneous Information 1 ea NOTE XX ; Start 07/05/17 at 16:00 Glucose (Glutose) 15 gm Q15M PRN PO DECREASED GLUCOSE; Start 07/05/17 at 16:00 Glucose (Glutose) 22.5 gm Q15M PRN PO DECREASED GLUCOSE; Start 07/05/17 at 16: 00 Dextrose (D50w Syringe) 25 ml Q15M PRN IV DECREASED GLUCOSE; Start 07/05/17 at 16:00 Dextrose (D50w Syringe) 50 ml Q15M PRN IV DECREASED GLUCOSE; Start 07/05/17 at 16:00 Glucagon (Glucagen) 1 mg Q15M PRN IM DECREASED GLUCOSE; Start 07/05/17 at 16: 00 Glucose (Glutose) 15 gm Q15M PRN BUCCAL DECREASED GLUCOSE; Start 07/05/17 at 16:00 Diagnostic Test (Pha) (Accu-Chek) 1 ea 02 XX Last administered on 07/10/17 01 :13; Admin Dose 1 EA; Start 07/06/17 at 02:00 Carvedilol (Coreg) 3.125 mg BID PO Last administered on 07/10/17 09:30; Admin Dose 3.125 MG; Start 07/06/17 at 10:00 Nifedipine (Procardia Xl) 60 mg BID PO Last administered on 07/10/17 09:30; Admin Dose 60 MG; Start 07/06/17 at 21:00 Hydralazine HCl (Apresoline) 10 mg Q6H PRN IV SBP>150 mm Hg Last administered on 07/07/17 00:22; Admin Dose 10 MG; Start 07/06/17 at 11:30 Collagenase (Santyl) 1 applic DAILY TOP Last administered on 07/09/17 08:51; Admin Dose 1 APPLIC; Start 07/07/17 at 09:00 Insulin Glargine (Lantus) 12 unit QHS SC Last administered on 07/09/17 21:02 ; Admin Dose 12 UNIT; Start 07/07/17 at 21:00 Nitroglycerin (Nitroglycerin (Sl Tab) 0.4 Mg) 1 tab Q5M PRN SL ANGINA; Start 07/07/17 at 16:30 Aspirin (Aspirin) 81 mg DAILY PO Last administered on 07/10/17 09:29; Admin Dose 81 MG; Start 07/08/17 at 09:00 Atorvastatin Calcium (Lipitor) 20 mg HS PO Last administered on 07/09/17 21: 03; Admin Dose 20 MG; Start 07/07/17 at 21:00 Acetaminophen (Tylenol Tab) 650 mg Q6H PRN PO PAIN AND OR ELEVATED TEMP Last administered on 07/10/17 01:41; Admin Dose 650 MG; Start 07/10/17 at 01:30 Epoetin Johnie (Epogen (Neserd)) 6,000 units MoWeFr@17 SC ; Start 07/11/17 at 17: 00 KAPIL PAREDES Jul 10, 2017 15:43
--- NOTE | 2017-07-10 16:38 | CONS ---
Date/Time of Note Date/Time of Note DATE: 07/10/17 TIME: 16:37 Assessment/Plan Assessment/Plan Chief Complaint/Hosp Course 47 yo male with h/o DM on insulin, previous toe amputation presenting wtih nausea and abominal discomfort and lethargy x 1 day. pt is found to have Acute kidney injury, DKA,severe metabolic acidosis with PH 7.1, Na 128 ,HCo3 6 and BUN 98 and Cr 10.86. Renal has been consulted for it Problems: Additional Assessment/Plan 1. Acute kidney Injury vs MARICRUZ on CKD due to severe prerenal azotemia + ATN From DKA- started on HD during this admission 2. Severe metabolic acidosis with PH 7.1- Resolved with HD and insulin gtt 3. Hyponatremia= Resolved 4. acute Diabeic ketoacidosis S/p insulin gtt 5. IDDM with Diabetic kidney disease Plan ; s/p Right Permacatht- started on HD during this admission S/p LUE AVF placement Hepatitis panel and HIV negative Outpatient HD placement has been requested will continue to follow up hematology consulted for possible iron overload Consultation Date/Type/Reason Admit Date/Time Jul 04, 2017 at 15:43 Initial Consult Date 07/04/17 Type of Consultation: NEPHROLOGY Referring Provider: DIMA SMITH MD Exam/Review of Systems Vital Signs Vitals Vital Signs Date Time Temp Pulse Resp B/P Pulse Ox O2 Delivery O2 Flow Rate FiO2 07/10/17 14:00 98.2 87 18 116/68 99 07/09/17 19:36 Room Air Intake and Output 07/09/17 07/09/17 07/10/17 15:00 23:00 07:00 Intake Total 350 ml 430 ml Output Total 10 ml 250 ml Balance 340 ml 180 ml Exam Constitutional: alert, awake Respiratory: clear to auscultation, congested cough, diminished breath sounds Cardiovascular: other (tachycardia ), regular rate and rhythm Gastrointestinal: non-tender, soft Musculoskeletal: nl extremities to inspection, nl gait and stance, Right chest permacath Extremities: normal pulses 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, nl mental status, nl speech, nl strength Results Result Diagram: 07/10/17 0443 07/10/17 0443 Results 24 hrs Laboratory Tests Test 07/09/17 20:38 07/10/17 01:10 07/10/17 04:43 07/10/17 09:27 Bedside Glucose 261 H 154 180 White Blood Count 15.3 #H Red Blood Count 3.11 L Hemoglobin 8.8 L Hematocrit 27.3 L Mean Corpuscular Volume 87.8 Mean Corpuscular Hemoglobin 28.3 L Mean Corpuscular Hemoglobin Concent 32.2 Red Cell Distribution Width 13.7 Platelet Count 189 Mean Platelet Volume 11.5 H Neutrophils % 81.9 H Lymphocytes % 9.4 L Monocytes % 6.9 Eosinophils % 0.6 Basophils % 0.5 Nucleated Red Blood Cells % 0.0 Neutrophils # 12.5 H Lymphocytes # 1.4 Monocytes # 1.1 H Eosinophils # 0.1 Basophils # 0.1 Nucleated Red Blood Cells # 0.0 Sodium Level 141 Potassium Level 3.9 Chloride Level 107 Carbon Dioxide Level 27 Anion Gap 11 Blood Urea Nitrogen 35 H Creatinine 5.69 H Glucose Level 189 Calcium Level 8.4 Test 07/10/17 12:53 Bedside Glucose 340 H Medications Medications Current Medications Ondansetron HCl (Zofran Inj) 4 mg Q4H PRN IV NAUSEA AND/OR VOMITING Last administered on 07/10/17 01:03; Admin Dose 4 MG; Start 07/05/17 at 00:00 Citric Acid/ Sodium Citrate (Bicitra) 30 ml TID PO Last administered on 13:06; Admin Dose 30 ML; Start 07/05/17 at 10:00 Miscellaneous Information 1 ea NOTE XX ; Start 07/05/17 at 16:00 Glucose (Glutose) 15 gm Q15M PRN PO DECREASED GLUCOSE; Start 07/05/17 at 16:00 Glucose (Glutose) 22.5 gm Q15M PRN PO DECREASED GLUCOSE; Start 07/05/17 at 16: 00 Dextrose (D50w Syringe) 25 ml Q15M PRN IV DECREASED GLUCOSE; Start 07/05/17 at 16:00 Dextrose (D50w Syringe) 50 ml Q15M PRN IV DECREASED GLUCOSE; Start 07/05/17 at 16:00 Glucagon (Glucagen) 1 mg Q15M PRN IM DECREASED GLUCOSE; Start 07/05/17 at 16: 00 Glucose (Glutose) 15 gm Q15M PRN BUCCAL DECREASED GLUCOSE; Start 07/05/17 at 16:00 Diagnostic Test (Pha) (Accu-Chek) 1 ea 02 XX Last administered on 07/10/17 01 :13; Admin Dose 1 EA; Start 07/06/17 at 02:00 Carvedilol (Coreg) 3.125 mg BID PO Last administered on 07/10/17 09:30; Admin Dose 3.125 MG; Start 07/06/17 at 10:00 Nifedipine (Procardia Xl) 60 mg BID PO Last administered on 07/10/17 09:30; Admin Dose 60 MG; Start 07/06/17 at 21:00 Hydralazine HCl (Apresoline) 10 mg Q6H PRN IV SBP>150 mm Hg Last administered on 07/07/17 00:22; Admin Dose 10 MG; Start 07/06/17 at 11:30 Collagenase (Santyl) 1 applic DAILY TOP Last administered on 07/10/17 12:00; Admin Dose 1 APPLIC; Start 07/07/17 at 09:00 Insulin Glargine (Lantus) 12 unit QHS SC Last administered on 07/09/17 21:02 ; Admin Dose 12 UNIT; Start 07/07/17 at 21:00 Nitroglycerin (Nitroglycerin (Sl Tab) 0.4 Mg) 1 tab Q5M PRN SL ANGINA; Start 07/07/17 at 16:30 Aspirin (Aspirin) 81 mg DAILY PO Last administered on 07/10/17 09:29; Admin Dose 81 MG; Start 07/08/17 at 09:00 Atorvastatin Calcium (Lipitor) 20 mg HS PO Last administered on 07/09/17 21: 03; Admin Dose 20 MG; Start 07/07/17 at 21:00 Acetaminophen (Tylenol Tab) 650 mg Q6H PRN PO PAIN AND OR ELEVATED TEMP Last administered on 07/10/17 01:41; Admin Dose 650 MG; Start 07/10/17 at 01:30 Epoetin Johnie (Epogen (Neserd)) 6,000 units MoWeFr@17 SC ; Start 07/11/17 at 17: 00 Heparin Sodium (Porcine) (Heparin (5000 Units/0.5 ml)) 5,000 unit BID SC ; Start 07/10/17 at 21:00 JENNIFER LUKE MD Jul 10, 2017 16:38
[2017-07-10] MEDS: ATORVASTATIN 20 MG TAB PO SCH (20:32)
[2017-07-10] MEDS: HEPARIN 5,000 UNIT/0.5 ML VIAL SC SCH (20:35)
[2017-07-10] MEDS: INSULIN GLARGINE [LANtus] 3 ML PEN SC SCH (20:36)
[2017-07-11] MEDS: ACCUCHECK AT 2AM (Patients on SS coverage) XX SCH (01:35)
[2017-07-11 02:06] VITALS: BP 132/75; RESP 18
[2017-07-11 07:43] VITALS: BP 142/79; RESP 18
[2017-07-11] MEDS: INSULIN ASPART [NOVOLOG] 3 ML PEN SC SCH ×7 (09:12→22:40)
[2017-07-11] MEDS: ASPIRIN 81 MG TAB PO SCH (09:15)
[2017-07-11] MEDS: CITRIC ACID/NA CITRATE 30 ML CUP PO SCH ×2 (09:15→12:23)
[2017-07-11] MEDS: HEPARIN 5,000 UNIT/0.5 ML VIAL SC SCH ×2 (09:15→22:36)
[2017-07-11] MEDS: ONDANSETRON 4 MG INJ IV PRN (09:15)
[2017-07-11] MEDS: COLLAGENASE 30 GM TUBE TOP SCH (09:16)
--- NOTE | 2017-07-11 09:18 | CONS ---
Date/Time of Note Date/Time of Note DATE: 07/11/17 TIME: 09:15 Assessment/Plan Assessment/Plan Problems: (1) Diabetes, polyneuropathy (2) Non-pressure chronic ulcer of other part of right foot with muscle involvement without evidence of necrosis (3) Anemia Status: Acute Qualifiers: Qualified Code: D64.9 - Anemia, unspecified type (4) Acquired absence of other right toe(s) Additional Assessment/Plan Patient will be scheduled for surgery; REVISION AMPUTATION RIGHT FOOT. Continue IVAbx; daily dressing changes. Thank you again for involving me in the care of this patient. If you have any questions regarding this case, please feel free to contact me at pager: [phone] or reach me at mobile: [phone]. Consultation Date/Type/Reason Admit Date/Time Jul 04, 2017 at 15:43 Date of Consultation: Jul 10, 2017 Type of Consultation: Foot and ankle surgery Reason for Consultation Evaluation of open wound right foot status post fifth toe amputation Hx of Present Illness Thank you very much for involving care of this patient. As you know this is a 47-year-old male patient with multiple medical problems including diabetes mellitus on insulin, hypertension, hyponatremia, acute diabetic ketoacidosis. I was consulted for evaluation of open wound right foot. Constitutional: no complaints Eyes: no complaints ENT: no complaints Respiratory: no complaints Cardiovascular: no complaints Gastrointestinal: nausea, pain Musculoskeletal: no complaints Skin: no complaints Neurologic: no complaints Endocrine: no complaints Lymphatic: no complaints Psychological: no complaints Immunologic: no complaints Past Medical History As per history of present illness. Medical History: diabetes Past Surgical History As per history of present illness. Past Surgical Hx: other (Testicular surgery as child, toe amputation ) Social History As per history of present illness. Alcohol Use: none Smoking Status: Former smoker Drug Use: none Exam/Review of Systems Vital Signs Vitals Vital Signs Date Time Temp Pulse Resp B/P Pulse Ox O2 Delivery O2 Flow Rate FiO2 07/11/17 07:43 98.2 82 18 142/79 99 07/09/17 19:36 Room Air Intake and Output 07/10/17 07/10/17 07/11/17 15:00 23:00 07:00 Intake Total 500 ml 640 ml 425 ml Output Total 2000 ml 600 ml 550 ml Balance -1500 ml 40 ml -125 ml Exam In no acute distress. Open wound present lateral right foot at the site of amputation of the right fifth toe. Necrotic tissue present. There is irregularity in the wound edge with no pus and no bleeding. The area is nontender to palpation there is no malodor present. No fluctuance noted. Palpable pulses noted with decreased sensation to sharp dull vibratory temperature stimuli. Labs reviewed. Results Result Diagram: 07/11/17 0502 07/11/17 0502 Results 24 hrs Laboratory Tests Test 07/10/17 09:27 07/10/17 12:53 07/10/17 17:19 07/10/17 20:28 Bedside Glucose 180 340 H 265 H 279 H Test 07/11/17 01:14 07/11/17 05:02 07/11/17 08:37 Bedside Glucose 255 H 359 H White Blood Count 12.5 H Red Blood Count 2.96 L Hemoglobin 8.5 L Hematocrit 25.9 L Mean Corpuscular Volume 87.5 Mean Corpuscular Hemoglobin 28.7 L Mean Corpuscular Hemoglobin Concent 32.8 Red Cell Distribution Width 13.5 Platelet Count 199 Mean Platelet Volume 11.3 H Neutrophils % 75.8 Lymphocytes % 12.3 L Monocytes % 8.9 Eosinophils % 2.0 Basophils % 0.6 Nucleated Red Blood Cells % 0.0 Neutrophils # 9.5 H Lymphocytes # 1.5 Monocytes # 1.1 H Eosinophils # 0.3 Basophils # 0.1 Nucleated Red Blood Cells # 0.0 Sodium Level 136 Potassium Level 4.0 Chloride Level 99 Carbon Dioxide Level 28 Anion Gap 13 Blood Urea Nitrogen 32 H Creatinine 4.97 H Glucose Level 326 H Calcium Level 8.1 L Medications Medications Current Medications Ondansetron HCl (Zofran Inj) 4 mg Q4H PRN IV NAUSEA AND/OR VOMITING Last administered on 07/10/17 01:03; Admin Dose 4 MG; Start 07/05/17 at 00:00 Citric Acid/ Sodium Citrate (Bicitra) 30 ml TID PO Last administered on 20:32; Admin Dose 30 ML; Start 07/05/17 at 10:00 Miscellaneous Information 1 ea NOTE XX ; Start 07/05/17 at 16:00 Glucose (Glutose) 15 gm Q15M PRN PO DECREASED GLUCOSE; Start 07/05/17 at 16:00 Glucose (Glutose) 22.5 gm Q15M PRN PO DECREASED GLUCOSE; Start 07/05/17 at 16: 00 Dextrose (D50w Syringe) 25 ml Q15M PRN IV DECREASED GLUCOSE; Start 07/05/17 at 16:00 Dextrose (D50w Syringe) 50 ml Q15M PRN IV DECREASED GLUCOSE; Start 07/05/17 at 16:00 Glucagon (Glucagen) 1 mg Q15M PRN IM DECREASED GLUCOSE; Start 07/05/17 at 16: 00 Glucose (Glutose) 15 gm Q15M PRN BUCCAL DECREASED GLUCOSE; Start 07/05/17 at 16:00 Diagnostic Test (Pha) (Accu-Chek) 1 ea 02 XX Last administered on 07/11/17 01 :35; Admin Dose 1 EA; Start 07/06/17 at 02:00 Carvedilol (Coreg) 3.125 mg BID PO Last administered on 07/10/17 20:32; Admin Dose 3.125 MG; Start 07/06/17 at 10:00 Nifedipine (Procardia Xl) 60 mg BID PO Last administered on 07/10/17 20:32; Admin Dose 60 MG; Start 07/06/17 at 21:00 Hydralazine HCl (Apresoline) 10 mg Q6H PRN IV SBP>150 mm Hg Last administered on 07/07/17 00:22; Admin Dose 10 MG; Start 07/06/17 at 11:30 Collagenase (Santyl) 1 applic DAILY TOP Last administered on 07/10/17 12:00; Admin Dose 1 APPLIC; Start 07/07/17 at 09:00 Insulin Glargine (Lantus) 12 unit QHS SC Last administered on 07/10/17 20:36 ; Admin Dose 12 UNIT; Start 07/07/17 at 21:00 Nitroglycerin (Nitroglycerin (Sl Tab) 0.4 Mg) 1 tab Q5M PRN SL ANGINA; Start 07/07/17 at 16:30 Aspirin (Aspirin) 81 mg DAILY PO Last administered on 07/10/17 09:29; Admin Dose 81 MG; Start 07/08/17 at 09:00 Atorvastatin Calcium (Lipitor) 20 mg HS PO Last administered on 07/10/17 20: 32; Admin Dose 20 MG; Start 07/07/17 at 21:00 Acetaminophen (Tylenol Tab) 650 mg Q6H PRN PO PAIN AND OR ELEVATED TEMP Last administered on 07/10/17 01:41; Admin Dose 650 MG; Start 07/10/17 at 01:30 Epoetin Johnie (Epogen (Neserd)) 6,000 units MoWeFr@17 SC ; Start 07/11/17 at 17: 00 Heparin Sodium (Porcine) (Heparin (5000 Units/0.5 ml)) 5,000 unit BID SC Last administered on 07/10/17 20:35; Admin Dose 5,000 UNIT; Start 07/10/17 at 21: 00 IGNACIO COTTON DPM Jul 11, 2017 09:18
--- NOTE | 2017-07-11 11:18 | PN ---
Date/Time of Note Date/Time of Note DATE: 07/11/17 TIME: 11:14 Assessment/Plan VTE Prophylaxis VTE Prophylaxis Intervention: heparin Lines/Catheters IV [facility]from [facility] permacath Urinary Cath still in place: No Assessment/Plan Chief Complaint/Hosp Course 1. DKA-resolved 2. Diabetes Continue Lantus and start mealtime insulin, continue sliding scale 3. CKD now having progressed to ESRD secondary to diabetic nephropathy HD has been initiated, status post fistula placement, patient will need outpatient HD arrangements Nephrology following 4. Hypokalemia Replete 5. Anemia secondary to end-stage renal disease and chronic disease Epogen per renal 6. Chronic diabetic ulcer Continue wound care Podiatry consultation appreciated, plan is for revision of the right foot 7. PAD Continue aspirin and statin 8. Hypertension-stable Continue nifedipine 60, Coreg 3.125 for now, titrate as needed Prophylaxis: Heparin Problems: Subjective 24 Hr Interval Summary Constitutional: no complaints Exam/Review of Systems Vital Signs Vitals Vital Signs Date Time Temp Pulse Resp B/P Pulse Ox O2 Delivery O2 Flow Rate FiO2 07/11/17 07:43 98.2 82 18 142/79 99 07/09/17 19:36 Room Air Intake and Output 07/10/17 07/10/17 07/11/17 15:00 23:00 07:00 Intake Total 500 ml 640 ml 425 ml Output Total 2000 ml 600 ml 550 ml Balance -1500 ml 40 ml -125 ml Exam Constitutional: alert, oriented Respiratory: clear to auscultation Cardiovascular: regular rate and rhythm Gastrointestinal: soft, No distended Musculoskeletal: No nl extremities to inspection Results Result Diagram: 07/11/17 0502 07/11/17 0502 Results 24 hrs Laboratory Tests Test 07/10/17 12:53 07/10/17 17:19 07/10/17 20:28 07/11/17 01:14 Bedside Glucose 340 H 265 H 279 H 255 H Test 07/11/17 05:02 07/11/17 08:37 White Blood Count 12.5 H Red Blood Count 2.96 L Hemoglobin 8.5 L Hematocrit 25.9 L Mean Corpuscular Volume 87.5 Mean Corpuscular Hemoglobin 28.7 L Mean Corpuscular Hemoglobin Concent 32.8 Red Cell Distribution Width 13.5 Platelet Count 199 Mean Platelet Volume 11.3 H Neutrophils % 75.8 Lymphocytes % 12.3 L Monocytes % 8.9 Eosinophils % 2.0 Basophils % 0.6 Nucleated Red Blood Cells % 0.0 Neutrophils # 9.5 H Lymphocytes # 1.5 Monocytes # 1.1 H Eosinophils # 0.3 Basophils # 0.1 Nucleated Red Blood Cells # 0.0 Sodium Level 136 Potassium Level 4.0 Chloride Level 99 Carbon Dioxide Level 28 Anion Gap 13 Blood Urea Nitrogen 32 H Creatinine 4.97 H Glucose Level 326 H Calcium Level 8.1 L Bedside Glucose 359 H Medications Medications Current Medications Ondansetron HCl (Zofran Inj) 4 mg Q4H PRN IV NAUSEA AND/OR VOMITING Last administered on 07/11/17 09:15; Admin Dose 4 MG; Start 07/05/17 at 00:00 Citric Acid/ Sodium Citrate (Bicitra) 30 ml TID PO Last administered on 09:15; Admin Dose 30 ML; Start 07/05/17 at 10:00 Miscellaneous Information 1 ea NOTE XX ; Start 07/05/17 at 16:00 Glucose (Glutose) 15 gm Q15M PRN PO DECREASED GLUCOSE; Start 07/05/17 at 16:00 Glucose (Glutose) 22.5 gm Q15M PRN PO DECREASED GLUCOSE; Start 07/05/17 at 16: 00 Dextrose (D50w Syringe) 25 ml Q15M PRN IV DECREASED GLUCOSE; Start 07/05/17 at 16:00 Dextrose (D50w Syringe) 50 ml Q15M PRN IV DECREASED GLUCOSE; Start 07/05/17 at 16:00 Glucagon (Glucagen) 1 mg Q15M PRN IM DECREASED GLUCOSE; Start 07/05/17 at 16: 00 Glucose (Glutose) 15 gm Q15M PRN BUCCAL DECREASED GLUCOSE; Start 07/05/17 at 16:00 Diagnostic Test (Pha) (Accu-Chek) 1 ea 02 XX Last administered on 07/11/17 01 :35; Admin Dose 1 EA; Start 07/06/17 at 02:00 Carvedilol (Coreg) 3.125 mg BID PO Last administered on 07/10/17 20:32; Admin Dose 3.125 MG; Start 07/06/17 at 10:00 Nifedipine (Procardia Xl) 60 mg BID PO Last administered on 07/10/17 20:32; Admin Dose 60 MG; Start 07/06/17 at 21:00 Hydralazine HCl (Apresoline) 10 mg Q6H PRN IV SBP>150 mm Hg Last administered on 07/07/17 00:22; Admin Dose 10 MG; Start 07/06/17 at 11:30 Collagenase (Santyl) 1 applic DAILY TOP Last administered on 07/11/17 09:16; Admin Dose 1 APPLIC; Start 07/07/17 at 09:00 Insulin Glargine (Lantus) 12 unit QHS SC Last administered on 07/10/17 20:36 ; Admin Dose 12 UNIT; Start 07/07/17 at 21:00 Nitroglycerin (Nitroglycerin (Sl Tab) 0.4 Mg) 1 tab Q5M PRN SL ANGINA; Start 07/07/17 at 16:30 Aspirin (Aspirin) 81 mg DAILY PO Last administered on 07/11/17 09:15; Admin Dose 81 MG; Start 07/08/17 at 09:00 Atorvastatin Calcium (Lipitor) 20 mg HS PO Last administered on 07/10/17 20: 32; Admin Dose 20 MG; Start 07/07/17 at 21:00 Acetaminophen (Tylenol Tab) 650 mg Q6H PRN PO PAIN AND OR ELEVATED TEMP Last administered on 07/10/17 01:41; Admin Dose 650 MG; Start 07/10/17 at 01:30 Epoetin Johnie (Epogen (Neserd)) 6,000 units MoWeFr@17 SC ; Start 07/11/17 at 17: 00 Heparin Sodium (Porcine) (Heparin (5000 Units/0.5 ml)) 5,000 unit BID SC Last administered on 07/11/17 09:15; Admin Dose 5,000 UNIT; Start 07/10/17 at 21: 00 KAPIL PAREDES Jul 11, 2017 11:18
[2017-07-11] MEDS: NIFEdipine (XL) 60 MG TAB PO SCH ×2 (12:23→21:00)
[2017-07-11] MEDS ORDERED: MEROPENEM 1 GM/50ML(PMX) 50 ML IVPB SCH (13:00)
--- NOTE | 2017-07-11 14:14 | CONS ---
Date/Time of Note Date/Time of Note DATE: 07/11/17 TIME: 14:11 Assessment/Plan Assessment/Plan Chief Complaint/Hosp Course IMP: 1.Pre-op eval- Lexiscan this admit with NL EDF/ no ischemia. Echo NL EF and no sig valve abnl. Thus ok to proceed to or at low to moderate risk without further noninvasive evaluation on current medications- NOw post-op s/p AVF creation. To go for revision of R foot amputation sunday. 2.chest pain-intermittent/negative trop x 3 3.abnl ecg 4.PAD s/p toe amputation 5.DM with DKA Recc: -Now on med-surg -Continue asa/statin/coreg/procardia XL -Local wound care -Pain control Problems: Consultation Date/Type/Reason Admit Date/Time Jul 04, 2017 at 15:43 Initial Consult Date 07/04/17 Type of Consultation: cardiology Reason for Consultation Pre-op Referring Provider: DIMA SMITH MD Exam/Review of Systems Vital Signs Vitals Vital Signs Date Time Temp Pulse Resp B/P Pulse Ox O2 Delivery O2 Flow Rate FiO2 07/11/17 07:43 98.2 82 18 142/79 99 07/09/17 19:36 Room Air Intake and Output 07/10/17 07/10/17 07/11/17 15:00 23:00 07:00 Intake Total 500 ml 640 ml 425 ml Output Total 2000 ml 600 ml 550 ml Balance -1500 ml 40 ml -125 ml Exam Review of Systems: CONSTITUTIONAL: No fevers, chills. PULMONARY: No sob CARDIOVASCULAR: No chest pain/palpitations GASTROINTESTINAL: No nausea/vomiting. GENITOURINARY: No hematuria/dysuria. MUSCULOSKELETAL: No myagias/arthalgias. PSYCHIATRIC: The patient denies depression. NEUROLOGIC: No weakness Constitutional: alert, oriented Psych: no complaints Head: normocephalic ENMT: mucosa pink and moist Neck: jvd (cm water), supple Respiratory: clear to auscultation Cardiovascular: regular rate and rhythm Gastrointestinal: soft Musculoskeletal: muscle weakness (generalized) Extremities: edema (none), other 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: other (No focal deficits) Results Result Diagram: 07/11/17 0502 07/11/17 0502 Results 24 hrs Laboratory Tests Test 07/10/17 17:19 07/10/17 20:28 07/11/17 01:14 07/11/17 05:02 Bedside Glucose 265 H 279 H 255 H White Blood Count 12.5 H Red Blood Count 2.96 L Hemoglobin 8.5 L Hematocrit 25.9 L Mean Corpuscular Volume 87.5 Mean Corpuscular Hemoglobin 28.7 L Mean Corpuscular Hemoglobin Concent 32.8 Red Cell Distribution Width 13.5 Platelet Count 199 Mean Platelet Volume 11.3 H Neutrophils % 75.8 Lymphocytes % 12.3 L Monocytes % 8.9 Eosinophils % 2.0 Basophils % 0.6 Nucleated Red Blood Cells % 0.0 Neutrophils # 9.5 H Lymphocytes # 1.5 Monocytes # 1.1 H Eosinophils # 0.3 Basophils # 0.1 Nucleated Red Blood Cells # 0.0 Sodium Level 136 Potassium Level 4.0 Chloride Level 99 Carbon Dioxide Level 28 Anion Gap 13 Blood Urea Nitrogen 32 H Creatinine 4.97 H Glucose Level 326 H Calcium Level 8.1 L Test 07/11/17 08:37 07/11/17 12:21 Bedside Glucose 359 H 393 H Medications Medications Current Medications Ondansetron HCl (Zofran Inj) 4 mg Q4H PRN IV NAUSEA AND/OR VOMITING Last administered on 07/11/17 09:15; Admin Dose 4 MG; Start 07/05/17 at 00:00 Citric Acid/ Sodium Citrate (Bicitra) 30 ml TID PO Last administered on 12:23; Admin Dose 30 ML; Start 07/05/17 at 10:00 Miscellaneous Information 1 ea NOTE XX ; Start 07/05/17 at 16:00 Glucose (Glutose) 15 gm Q15M PRN PO DECREASED GLUCOSE; Start 07/05/17 at 16:00 Glucose (Glutose) 22.5 gm Q15M PRN PO DECREASED GLUCOSE; Start 07/05/17 at 16: 00 Dextrose (D50w Syringe) 25 ml Q15M PRN IV DECREASED GLUCOSE; Start 07/05/17 at 16:00 Dextrose (D50w Syringe) 50 ml Q15M PRN IV DECREASED GLUCOSE; Start 07/05/17 at 16:00 Glucagon (Glucagen) 1 mg Q15M PRN IM DECREASED GLUCOSE; Start 07/05/17 at 16: 00 Glucose (Glutose) 15 gm Q15M PRN BUCCAL DECREASED GLUCOSE; Start 07/05/17 at 16:00 Diagnostic Test (Pha) (Accu-Chek) 1 ea 02 XX Last administered on 07/11/17 01 :35; Admin Dose 1 EA; Start 07/06/17 at 02:00 Carvedilol (Coreg) 3.125 mg BID PO Last administered on 07/11/17 12:24; Admin Dose 3.125 MG; Start 07/06/17 at 10:00 Nifedipine (Procardia Xl) 60 mg BID PO Last administered on 07/11/17 12:23; Admin Dose 60 MG; Start 07/06/17 at 21:00 Hydralazine HCl (Apresoline) 10 mg Q6H PRN IV SBP>150 mm Hg Last administered on 07/07/17 00:22; Admin Dose 10 MG; Start 07/06/17 at 11:30 Collagenase (Santyl) 1 applic DAILY TOP Last administered on 07/11/17 09:16; Admin Dose 1 APPLIC; Start 07/07/17 at 09:00 Insulin Glargine (Lantus) 12 unit QHS SC Last administered on 07/10/17 20:36 ; Admin Dose 12 UNIT; Start 07/07/17 at 21:00 Nitroglycerin (Nitroglycerin (Sl Tab) 0.4 Mg) 1 tab Q5M PRN SL ANGINA; Start 07/07/17 at 16:30 Aspirin (Aspirin) 81 mg DAILY PO Last administered on 07/11/17 09:15; Admin Dose 81 MG; Start 07/08/17 at 09:00 Atorvastatin Calcium (Lipitor) 20 mg HS PO Last administered on 07/10/17 20: 32; Admin Dose 20 MG; Start 07/07/17 at 21:00 Acetaminophen (Tylenol Tab) 650 mg Q6H PRN PO PAIN AND OR ELEVATED TEMP Last administered on 07/10/17 01:41; Admin Dose 650 MG; Start 07/10/17 at 01:30 Epoetin Johnie (Epogen (Neserd)) 6,000 units MoWeFr@17 SC ; Start 07/11/17 at 17: 00 Heparin Sodium (Porcine) 5000 unit 5,000 unit BID SC Last administered on 07/11 09:15; Admin Dose 5,000 UNIT; Start 07/10/17 at 21:00 Meropenem/Sodium Chloride (Merrem 1 Gm/50 ml (Pmx)) 50 ml @ 100 mls/hr Q12 IVPB Last administered on 07/11/17t 12:22; Admin Dose 100 MLS/HR; Start 07/11 at 13:00 FADUMO HOLLIS Jul 11, 2017 14:14
--- NOTE | 2017-07-11 16:15 | CONS ---
Date/Time of Note Date/Time of Note DATE: 07/11/17 TIME: 16:11 Assessment/Plan Assessment/Plan Chief Complaint/Hosp Course 47 yo male with h/o DM on insulin, previous toe amputation presenting wtih nausea and abominal discomfort and lethargy x 1 day. pt is found to have Acute kidney injury, DKA,severe metabolic acidosis with PH 7.1, Na 128 ,HCo3 6 and BUN 98 and Cr 10.86. Renal has been consulted for it Problems: Additional Assessment/Plan 1. Acute kidney Injury vs MARICRUZ on CKD due to severe prerenal azotemia + ATN From DKA- started on HD during this admission 2. Severe metabolic acidosis with PH 7.1- Resolved with HD and insulin gtt 3. Hyponatremia= Resolved 4. acute Diabeic ketoacidosis S/p insulin gtt 5. IDDM with Diabetic kidney disease 6. ESBL E Coli UTI 7. Concern about Iron Overload 8.. RLE wound, S/p Podiatry evluation and follow up yesterday Plan ; s/p Right Permacatht- started on HD during this admission - tolerating HD well on , , sunday schedule MRI abdomen has been ordered due to possible concern about iron overload S/p LUE AVF placement Hepatitis panel and HIV negative Outpatient HD placement has been requested- pt accepted at [facility] on ,, , sunday schedule pt has ESBL EColiu UTI, started on meropenem while being in hospital- will give Ertapenem 1g lara IV daily x 2 weeks on discharge, Home health ordered to set up for wound care, PICC Line care and IV abx for ESBL Ecoli UTI pt lives in apartment with his , he needs IV abx for ESBL Ecoli, he will be also set up for HD at dialysis unit, this Abx can not be given in HD unit, he needs HH for wound care, PICC Line, IV abx, RN visit, medications and home safety evaluation . Consultation Date/Type/Reason Admit Date/Time Jul 04, 2017 at 15:43 Initial Consult Date 07/04/17 Type of Consultation: NEPHROLOGY Referring Provider: DIMA SMITH MD Exam/Review of Systems Vital Signs Vitals Vital Signs Date Time Temp Pulse Resp B/P Pulse Ox O2 Delivery O2 Flow Rate FiO2 07/11/17 07:43 98.2 82 18 142/79 99 07/09/17 19:36 Room Air Intake and Output 07/10/17 07/10/17 07/11/17 15:00 23:00 07:00 Intake Total 500 ml 640 ml 425 ml Output Total 2000 ml 600 ml 550 ml Balance -1500 ml 40 ml -125 ml Exam Constitutional: alert, awake Respiratory: clear to auscultation, congested cough, diminished breath sounds Cardiovascular: other (tachycardia ), regular rate and rhythm Gastrointestinal: non-tender, soft Musculoskeletal: nl extremities to inspection, nl gait and stance, Right chest permacath Extremities: normal pulses, right foot dressing in place 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, nl mental status, nl speech, nl strength Results Result Diagram: 07/11/17 0502 07/11/17 0502 Results 24 hrs Laboratory Tests Test 07/10/17 17:19 07/10/17 20:28 07/11/17 01:14 07/11/17 05:02 Bedside Glucose 265 H 279 H 255 H White Blood Count 12.5 H Red Blood Count 2.96 L Hemoglobin 8.5 L Hematocrit 25.9 L Mean Corpuscular Volume 87.5 Mean Corpuscular Hemoglobin 28.7 L Mean Corpuscular Hemoglobin Concent 32.8 Red Cell Distribution Width 13.5 Platelet Count 199 Mean Platelet Volume 11.3 H Neutrophils % 75.8 Lymphocytes % 12.3 L Monocytes % 8.9 Eosinophils % 2.0 Basophils % 0.6 Nucleated Red Blood Cells % 0.0 Neutrophils # 9.5 H Lymphocytes # 1.5 Monocytes # 1.1 H Eosinophils # 0.3 Basophils # 0.1 Nucleated Red Blood Cells # 0.0 Sodium Level 136 Potassium Level 4.0 Chloride Level 99 Carbon Dioxide Level 28 Anion Gap 13 Blood Urea Nitrogen 32 H Creatinine 4.97 H Glucose Level 326 H Calcium Level 8.1 L Test 07/11/17 08:37 07/11/17 12:21 Bedside Glucose 359 H 393 H Medications Medications Current Medications Ondansetron HCl (Zofran Inj) 4 mg Q4H PRN IV NAUSEA AND/OR VOMITING Last administered on 07/11/17 09:15; Admin Dose 4 MG; Start 07/05/17 at 00:00 Citric Acid/ Sodium Citrate (Bicitra) 30 ml TID PO Last administered on 12:23; Admin Dose 30 ML; Start 07/05/17 at 10:00 Miscellaneous Information 1 ea NOTE XX ; Start 07/05/17 at 16:00 Glucose (Glutose) 15 gm Q15M PRN PO DECREASED GLUCOSE; Start 07/05/17 at 16:00 Glucose (Glutose) 22.5 gm Q15M PRN PO DECREASED GLUCOSE; Start 07/05/17 at 16: 00 Dextrose (D50w Syringe) 25 ml Q15M PRN IV DECREASED GLUCOSE; Start 07/05/17 at 16:00 Dextrose (D50w Syringe) 50 ml Q15M PRN IV DECREASED GLUCOSE; Start 07/05/17 at 16:00 Glucagon (Glucagen) 1 mg Q15M PRN IM DECREASED GLUCOSE; Start 07/05/17 at 16: 00 Glucose (Glutose) 15 gm Q15M PRN BUCCAL DECREASED GLUCOSE; Start 07/05/17 at 16:00 Diagnostic Test (Pha) (Accu-Chek) 1 ea 02 XX Last administered on 07/11/17 01 :35; Admin Dose 1 EA; Start 07/06/17 at 02:00 Carvedilol (Coreg) 3.125 mg BID PO Last administered on 07/11/17 12:24; Admin Dose 3.125 MG; Start 07/06/17 at 10:00 Nifedipine (Procardia Xl) 60 mg BID PO Last administered on 07/11/17 12:23; Admin Dose 60 MG; Start 07/06/17 at 21:00 Hydralazine HCl (Apresoline) 10 mg Q6H PRN IV SBP>150 mm Hg Last administered on 07/07/17 00:22; Admin Dose 10 MG; Start 07/06/17 at 11:30 Collagenase (Santyl) 1 applic DAILY TOP Last administered on 07/11/17 09:16; Admin Dose 1 APPLIC; Start 07/07/17 at 09:00 Nitroglycerin (Nitroglycerin (Sl Tab) 0.4 Mg) 1 tab Q5M PRN SL ANGINA; Start 07/07/17 at 16:30 Aspirin (Aspirin) 81 mg DAILY PO Last administered on 07/11/17 09:15; Admin Dose 81 MG; Start 07/08/17 at 09:00 Atorvastatin Calcium (Lipitor) 20 mg HS PO Last administered on 07/10/17 20: 32; Admin Dose 20 MG; Start 07/07/17 at 21:00 Acetaminophen (Tylenol Tab) 650 mg Q6H PRN PO PAIN AND OR ELEVATED TEMP Last administered on 07/10/17 01:41; Admin Dose 650 MG; Start 07/10/17 at 01:30 Epoetin Johnie (Epogen (Neserd)) 6,000 units MoWeFr@17 SC ; Start 07/11/17 at 17: 00 Heparin Sodium (Porcine) 5000 unit 5,000 unit BID SC Last administered on 07/11 09:15; Admin Dose 5,000 UNIT; Start 07/10/17 at 21:00 Meropenem/Sodium Chloride (Merrem 500mg/50 ml(Pmx)) 50 ml @ 100 mls/hr Q24H IVPB ; Start 07/12/17 at 15:00 Insulin Glargine (Lantus) 15 unit QHS SC ; Start 07/11/17 at 21:00 Lidocaine (Xylocaine 1% (Mpf)) 5 ml ONCE ONCE SC ; Start 07/11/17 at 16:30; Stop 07/11/17 at 16:31 JENNIFER LUKE MD Jul 11, 2017 16:15
[2017-07-11] MEDS ORDERED: LIDOCAINE 1% (MPF) 5 ML VIAL SC ONE (16:30)
[2017-07-11] MEDS: EPOETIN ALFA (NESRD) 3,000 UNITS/ML VIAL SC SCH (18:07)
[2017-07-11 20:45] VITALS: BP 102/63; RESP 20
[2017-07-11] MEDS ORDERED: CITRIC ACID/NA CITRATE 15 ML CUP PO SCH (21:00)
[2017-07-11] MEDS: ATORVASTATIN 20 MG TAB PO SCH (22:29)
[2017-07-11] MEDS: INSULIN GLARGINE [LANtus] 3 ML PEN SC SCH (22:39)
[2017-07-12] VITALS (11 sets, daily range): BP systolic 91–140; BP diastolic 60–79; PULSE 76–84; RESP 18–19
[2017-07-12] MEDS: CITRIC ACID/NA CITRATE 30 ML CUP PO SCH (02:18)
[2017-07-12] MEDS: ACCUCHECK AT 2AM (Patients on SS coverage) XX SCH (02:18)
[2017-07-12] MEDS: INSULIN ASPART [NOVOLOG] 3 ML PEN SC SCH ×7 (07:50→21:11)
[2017-07-12] MEDS: CITRIC ACID/SODIUM CITRATE 15 ML CUP PO SCH ×3 (09:00→20:34)
[2017-07-12] MEDS: NIFEdipine (XL) 60 MG TAB PO SCH ×2 (09:00→13:22)
[2017-07-12] MEDS: ASPIRIN 81 MG TAB PO SCH (09:02)
[2017-07-12] MEDS: HEPARIN 5,000 UNIT/0.5 ML VIAL SC SCH ×2 (09:21→21:14)
[2017-07-12] MEDS ORDERED: LIDOCAINE 1% (MPF) 5 ML VIAL SC ONE (12:00)
[2017-07-12] MEDS: MEROPENEM 500MG/50 ML (PMX) 50 ML IVPB SCH (15:44)
[2017-07-12] MEDS: COLLAGENASE 30 GM TUBE TOP SCH (15:45)
--- NOTE | 2017-07-12 17:00 | CONS ---
Date/Time of Note Date/Time of Note DATE: 07/12/17 TIME: 16:59 Assessment/Plan Assessment/Plan Additional Assessment/Plan 1. Acute kidney Injury vs MARICRUZ on CKD due to severe prerenal azotemia + ATN From DKA- started on HD during this admission 2. Severe metabolic acidosis with PH 7.1- Resolved with HD and insulin gtt 3. Hyponatremia= Resolved 4. acute Diabeic ketoacidosis S/p insulin gtt 5. IDDM with Diabetic kidney disease 6. ESBL E Coli UTI 7. Concern about Iron Overload 8.. RLE wound, S/p Podiatry evluation and follow up yesterday Plan ; s/p Right Permacatht- started on HD during this admission - tolerating HD well on , , sunday schedule, plan for HD today MRI abdomen has been ordered due to possible concern about iron overload S/p LUE AVF placement Hepatitis panel and HIV negative Outpatient HD placement has been requested- pt accepted at [facility] on ,, , sunday schedule pt has ESBL EColiu UTI, started on meropenem while being in hospital- will give Ertapenem 1g lara IV daily x 2 weeks on discharge, Home health ordered to set up for wound care, PICC Line care and IV abx for ESBL Ecoli UTI pt lives in apartment with his , he needs IV abx for ESBL Ecoli, he will be also set up for HD at dialysis unit, this Abx can not be given in HD unit, he needs HH for wound care, PICC Line, IV abx, RN visit, medications and home safety evaluation . Consultation Date/Type/Reason Admit Date/Time Jul 04, 2017 at 15:43 Initial Consult Date 07/04/17 Type of Consultation: NEPHROLOGY Referring Provider: DIMA SMITH MD Exam/Review of Systems Vital Signs Vitals Vital Signs Date Time Temp Pulse Resp B/P Pulse Ox O2 Delivery O2 Flow Rate FiO2 07/12/17 14:00 98.0 71 18 131/79 98 07/09/17 19:36 Room Air Intake and Output 07/11/17 07/11/17 07/12/17 15:00 23:00 07:00 Intake Total 700 ml Output Total 600 ml Balance 100 ml Exam Constitutional: alert, awake Respiratory: clear to auscultation, congested cough, diminished breath sounds Cardiovascular: other (tachycardia ), regular rate and rhythm Gastrointestinal: non-tender, soft Musculoskeletal: nl extremities to inspection, nl gait and stance, Right chest permacath Extremities: normal pulses, right foot dressing in place 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, nl mental status, nl speech, nl strength Results Result Diagram: 07/12/17 0458 07/12/17 0458 Results 24 hrs Laboratory Tests Test 07/11/17 17:28 07/11/17 22:32 07/12/17 02:17 07/12/17 04:58 Bedside Glucose 239 H 213 166 White Blood Count 13.4 H Red Blood Count 3.13 L Hemoglobin 8.9 L Hematocrit 27.5 L Mean Corpuscular Volume 87.9 Mean Corpuscular Hemoglobin 28.4 L Mean Corpuscular Hemoglobin Concent 32.4 Red Cell Distribution Width 13.4 Platelet Count 221 Mean Platelet Volume 11.4 H Neutrophils % 80.0 H Lymphocytes % 10.2 L Monocytes % 7.0 Eosinophils % 1.9 Basophils % 0.3 Nucleated Red Blood Cells % 0.0 Neutrophils # 10.7 H Lymphocytes # 1.4 Monocytes # 0.9 Eosinophils # 0.3 Basophils # 0.0 Nucleated Red Blood Cells # 0.0 Sodium Level 139 Potassium Level 3.4 L Chloride Level 97 Carbon Dioxide Level 32 H Anion Gap 13 Blood Urea Nitrogen 40 H Creatinine 5.98 H Glucose Level 127 # Calcium Level 8.6 Test 07/12/17 08:40 07/12/17 12:47 Bedside Glucose 101 219 Medications Medications Current Medications Ondansetron HCl (Zofran Inj) 4 mg Q4H PRN IV NAUSEA AND/OR VOMITING Last administered on 07/11/17t 09:15; Admin Dose 4 MG; Start 07/05/17 at 00:00 Miscellaneous Information 1 ea NOTE XX ; Start 07/05/17 at 16:00 Glucose (Glutose) 15 gm Q15M PRN PO DECREASED GLUCOSE; Start 07/05/17 at 16:00 Glucose (Glutose) 22.5 gm Q15M PRN PO DECREASED GLUCOSE; Start 07/05/17 at 16: 00 Dextrose (D50w Syringe) 25 ml Q15M PRN IV DECREASED GLUCOSE; Start 07/05/17 at 16:00 Dextrose (D50w Syringe) 50 ml Q15M PRN IV DECREASED GLUCOSE; Start 07/05/17 at 16:00 Glucagon (Glucagen) 1 mg Q15M PRN IM DECREASED GLUCOSE; Start 07/05/17 at 16: 00 Glucose (Glutose) 15 gm Q15M PRN BUCCAL DECREASED GLUCOSE; Start 07/05/17 at 16:00 Diagnostic Test (Pha) (Accu-Chek) 1 ea 02 XX Last administered on 07/12/17 02 :18; Admin Dose 1 EA; Start 07/06/17 at 02:00 Carvedilol (Coreg) 3.125 mg BID PO Last administered on 07/12/17 13:22; Admin Dose 3.125 MG; Start 07/06/17 at 10:00 Nifedipine (Procardia Xl) 60 mg BID PO Last administered on 07/12/17 13:22; Admin Dose 60 MG; Start 07/06/17 at 21:00 Hydralazine HCl (Apresoline) 10 mg Q6H PRN IV SBP>150 mm Hg Last administered on 07/07/17 00:22; Admin Dose 10 MG; Start 07/06/17 at 11:30 Collagenase (Santyl) 1 applic DAILY TOP Last administered on 07/12/17 15:45; Admin Dose 1 APPLIC; Start 07/07/17 at 09:00 Nitroglycerin (Nitroglycerin (Sl Tab) 0.4 Mg) 1 tab Q5M PRN SL ANGINA; Start 07/07/17 at 16:30 Aspirin (Aspirin) 81 mg DAILY PO Last administered on 07/12/17 09:02; Admin Dose 81 MG; Start 07/08/17 at 09:00 Atorvastatin Calcium (Lipitor) 20 mg HS PO Last administered on 07/11/17 22: 29; Admin Dose 20 MG; Start 07/07/17 at 21:00 Acetaminophen (Tylenol Tab) 650 mg Q6H PRN PO PAIN AND OR ELEVATED TEMP Last administered on 07/10/17 01:41; Admin Dose 650 MG; Start 07/10/17 at 01:30 Epoetin Johnie (Epogen (Neserd)) 6,000 units MoWeFr@17 SC Last administered on 18:07; Admin Dose 6,000 UNITS; Start 07/11/17 at 17:00 Heparin Sodium (Porcine) 5000 unit 5,000 unit BID SC Last administered on 07/12 09:21; Admin Dose 5,000 UNIT; Start 07/10/17 at 21:00 Meropenem/Sodium Chloride (Merrem 500mg/50 ml(Pmx)) 50 ml @ 100 mls/hr Q24H IVPB Last administered on 07/12/17 15:44; Admin Dose 100 MLS/HR; Start 07/12 at 15:00 Insulin Glargine (Lantus) 15 unit QHS SC Last administered on 07/11/17 22:39 ; Admin Dose 15 UNIT; Start 07/11/17 at 21:00 Citric Acid/ Sodium Citrate (Bicitra) 30 ml TID PO Last administered on 14:26; Admin Dose 30 ML; Start 07/12/17 at 09:00 Influenza Virus Vaccine (Fluzone) 0.5 ml ONCE ONCE IM* ; Start 07/13/17 at 13: 00; Stop 07/13/17 at 13:01 JENNIFER LUKE MD Jul 12, 2017 17:00
--- NOTE | 2017-07-12 17:07 | PN ---
Date/Time of Note Date/Time of Note DATE: 07/12/17 TIME: 17:05 Assessment/Plan VTE Prophylaxis VTE Prophylaxis Intervention: heparin Lines/Catheters IV [facility] PERMACATH Urinary Cath still in place: No Assessment/Plan Chief Complaint/Hosp Course 1. DKA-resolved 2. Diabetes-sugars improved Continue Lantus and mealtime insulin, continue sliding scale 3. CKD now having progressed to ESRD secondary to diabetic nephropathy HD has been initiated, status post fistula placement, patient now has outpatient HD arrangements Nephrology following 4. Hypokalemia Replete 5. Anemia secondary to end-stage renal disease and chronic disease Epogen per renal 6. Chronic diabetic ulcer Continue wound care Podiatry consultation appreciated, plan is for revision of the right foot 7. PAD Continue aspirin and statin 8. Hypertension-stable Continue nifedipine 60, Coreg 3.125 for now, titrate as needed 9. UTI secondary to ESBL E. Coli PICC line to be placed today and will be discharged with meropenem tomorrow Prophylaxis: Heparin Problems: Subjective 24 Hr Interval Summary Constitutional: no complaints Exam/Review of Systems Vital Signs Vitals Vital Signs Date Time Temp Pulse Resp B/P Pulse Ox O2 Delivery O2 Flow Rate FiO2 07/12/17 14:00 98.0 71 18 131/79 98 07/09/17 19:36 Room Air Intake and Output 07/11/17 07/11/17 07/12/17 15:00 23:00 07:00 Intake Total 700 ml Output Total 600 ml Balance 100 ml Exam Constitutional: alert, oriented Respiratory: clear to auscultation Cardiovascular: regular rate and rhythm Gastrointestinal: soft, No distended Musculoskeletal: nl extremities to inspection Results Result Diagram: 07/12/17 0458 07/12/17 0458 Results 24 hrs Laboratory Tests Test 07/11/17 17:28 07/11/17 22:32 07/12/17 02:17 07/12/17 04:58 Bedside Glucose 239 H 213 166 White Blood Count 13.4 H Red Blood Count 3.13 L Hemoglobin 8.9 L Hematocrit 27.5 L Mean Corpuscular Volume 87.9 Mean Corpuscular Hemoglobin 28.4 L Mean Corpuscular Hemoglobin Concent 32.4 Red Cell Distribution Width 13.4 Platelet Count 221 Mean Platelet Volume 11.4 H Neutrophils % 80.0 H Lymphocytes % 10.2 L Monocytes % 7.0 Eosinophils % 1.9 Basophils % 0.3 Nucleated Red Blood Cells % 0.0 Neutrophils # 10.7 H Lymphocytes # 1.4 Monocytes # 0.9 Eosinophils # 0.3 Basophils # 0.0 Nucleated Red Blood Cells # 0.0 Sodium Level 139 Potassium Level 3.4 L Chloride Level 97 Carbon Dioxide Level 32 H Anion Gap 13 Blood Urea Nitrogen 40 H Creatinine 5.98 H Glucose Level 127 # Calcium Level 8.6 Test 07/12/17 08:40 07/12/17 12:47 Bedside Glucose 101 219 Medications Medications Current Medications Ondansetron HCl (Zofran Inj) 4 mg Q4H PRN IV NAUSEA AND/OR VOMITING Last administered on 07/11/17 09:15; Admin Dose 4 MG; Start 07/05/17 at 00:00 Miscellaneous Information 1 ea NOTE XX ; Start 07/05/17 at 16:00 Glucose (Glutose) 15 gm Q15M PRN PO DECREASED GLUCOSE; Start 07/05/17 at 16:00 Glucose (Glutose) 22.5 gm Q15M PRN PO DECREASED GLUCOSE; Start 07/05/17 at 16: 00 Dextrose (D50w Syringe) 25 ml Q15M PRN IV DECREASED GLUCOSE; Start 07/05/17 at 16:00 Dextrose (D50w Syringe) 50 ml Q15M PRN IV DECREASED GLUCOSE; Start 07/05/17 at 16:00 Glucagon (Glucagen) 1 mg Q15M PRN IM DECREASED GLUCOSE; Start 07/05/17 at 16: 00 Glucose (Glutose) 15 gm Q15M PRN BUCCAL DECREASED GLUCOSE; Start 07/05/17 at 16:00 Diagnostic Test (Pha) (Accu-Chek) 1 ea 02 XX Last administered on 07/12/17 02 :18; Admin Dose 1 EA; Start 07/06/17 at 02:00 Carvedilol (Coreg) 3.125 mg BID PO Last administered on 07/12/17 13:22; Admin Dose 3.125 MG; Start 07/06/17 at 10:00 Nifedipine (Procardia Xl) 60 mg BID PO Last administered on 07/12/17 13:22; Admin Dose 60 MG; Start 07/06/17 at 21:00 Hydralazine HCl (Apresoline) 10 mg Q6H PRN IV SBP>150 mm Hg Last administered on 07/07/17 00:22; Admin Dose 10 MG; Start 07/06/17 at 11:30 Collagenase (Santyl) 1 applic DAILY TOP Last administered on 07/12/17 15:45; Admin Dose 1 APPLIC; Start 07/07/17 at 09:00 Nitroglycerin (Nitroglycerin (Sl Tab) 0.4 Mg) 1 tab Q5M PRN SL ANGINA; Start 07/07/17 at 16:30 Aspirin (Aspirin) 81 mg DAILY PO Last administered on 07/12/17 09:02; Admin Dose 81 MG; Start 07/08/17 at 09:00 Atorvastatin Calcium (Lipitor) 20 mg HS PO Last administered on 07/11/17 22: 29; Admin Dose 20 MG; Start 07/07/17 at 21:00 Acetaminophen (Tylenol Tab) 650 mg Q6H PRN PO PAIN AND OR ELEVATED TEMP Last administered on 07/10/17 01:41; Admin Dose 650 MG; Start 07/10/17 at 01:30 Epoetin Johnie (Epogen (Neserd)) 6,000 units MoWeFr@17 SC Last administered on 18:07; Admin Dose 6,000 UNITS; Start 07/11/17 at 17:00 Heparin Sodium (Porcine) 5000 unit 5,000 unit BID SC Last administered on 07/12 09:21; Admin Dose 5,000 UNIT; Start 07/10/17 at 21:00 Meropenem/Sodium Chloride (Merrem 500mg/50 ml(Pmx)) 50 ml @ 100 mls/hr Q24H IVPB Last administered on 07/12/17 15:44; Admin Dose 100 MLS/HR; Start 07/12 at 15:00 Insulin Glargine (Lantus) 15 unit QHS SC Last administered on 07/11/17 22:39 ; Admin Dose 15 UNIT; Start 07/11/17 at 21:00 Citric Acid/ Sodium Citrate (Bicitra) 30 ml TID PO Last administered on 14:26; Admin Dose 30 ML; Start 07/12/17 at 09:00 Influenza Virus Vaccine (Fluzone) 0.5 ml ONCE ONCE IM* ; Start 07/13/17 at 13: 00; Stop 07/13/17 at 13:01 KAPIL PAREDES Jul 12, 2017 17:07
[2017-07-12] MEDS ORDERED: SOD CHLORIDE 0.9% 100 ML ONE (17:47)
--- NOTE | 2017-07-12 18:27 | CONS ---
Date/Time of Note Date/Time of Note DATE: 07/12/17 TIME: 18:25 Assessment/Plan Assessment/Plan Chief Complaint/Hosp Course 47 yo male a #Concern for iron overload. - Given that patient has a ferritin of > 200 in the setting of a iron saturation 90% workup to rule out hemochromatosis is indicated. It is unlikely secondary to history of transfusion given he has had only 1 blood transfusion in the last 20 years, 2 months ago when he received 2 units of PRBD -sent test for Hereditary Hemochromatosis HFE C282Y and H63D genes - Abdominal MRI to evaluate liver for iron overload cannot be done in the hospital. will perform as an outpatient . #Anemia -workup revealed anemia likely secondary to underlying CKD -will check Erythropoietin level and start Epogen at 6000 units TIW -will check Vitamin b12, folate, SPEP, TSH, LDH , Retic haptoglobin to complete workup #Diabetes -continue insulin. Pt on glargine 12 with meal time insulin QAC and sliding scale #CKD -Hemodialysis has been initiated -pt undergoing workup with vascular surgery for access #PVD -on ASA and statin Problems: Consultation Date/Type/Reason Admit Date/Time Jul 04, 2017 at 15:43 Initial Consult Date 07/09/17 Type of Consultation: Hematology Reason for Consultation iron overload Referring Provider: DIMA SMITH MD 24 HR Interval Summary Free Text/Dictation no acute overnight events. pt continues on HD. Pt not able to get appropriate type of abdominal MRI at hospital Exam/Review of Systems Vital Signs Vitals Vital Signs Date Time Temp Pulse Resp B/P Pulse Ox O2 Delivery O2 Flow Rate FiO2 07/12/17 14:00 98.0 71 18 131/79 98 07/09/17 19:36 Room Air Intake and Output 07/11/17 07/11/17 07/12/17 15:00 23:00 07:00 Intake Total 700 ml Output Total 600 ml Balance 100 ml Exam Constitutional: alert Psych: no complaints Head: normocephalic Eyes: nl conjunctiva ENMT: nl external ears & nose Neck: supple Respiratory: clear to auscultation, normal air movement Cardiovascular: regular rate and rhythm Gastrointestinal: soft Musculoskeletal: nl extremities to inspection Results Result Diagram: 07/12/17 0458 07/12/17 0458 Results 24 hrs Laboratory Tests Test 07/11/17 22:32 07/12/17 02:17 07/12/17 04:58 07/12/17 08:40 Bedside Glucose 213 166 101 White Blood Count 13.4 H Red Blood Count 3.13 L Hemoglobin 8.9 L Hematocrit 27.5 L Mean Corpuscular Volume 87.9 Mean Corpuscular Hemoglobin 28.4 L Mean Corpuscular Hemoglobin Concent 32.4 Red Cell Distribution Width 13.4 Platelet Count 221 Mean Platelet Volume 11.4 H Neutrophils % 80.0 H Lymphocytes % 10.2 L Monocytes % 7.0 Eosinophils % 1.9 Basophils % 0.3 Nucleated Red Blood Cells % 0.0 Neutrophils # 10.7 H Lymphocytes # 1.4 Monocytes # 0.9 Eosinophils # 0.3 Basophils # 0.0 Nucleated Red Blood Cells # 0.0 Sodium Level 139 Potassium Level 3.4 L Chloride Level 97 Carbon Dioxide Level 32 H Anion Gap 13 Blood Urea Nitrogen 40 H Creatinine 5.98 H Glucose Level 127 # Calcium Level 8.6 Test 07/12/17 12:47 07/12/17 17:23 Bedside Glucose 219 254 H Medications Medications Current Medications Ondansetron HCl (Zofran Inj) 4 mg Q4H PRN IV NAUSEA AND/OR VOMITING Last administered on 07/11/17 09:15; Admin Dose 4 MG; Start 07/05/17 at 00:00 Miscellaneous Information 1 ea NOTE XX ; Start 07/05/17 at 16:00 Glucose (Glutose) 15 gm Q15M PRN PO DECREASED GLUCOSE; Start 07/05/17 at 16:00 Glucose (Glutose) 22.5 gm Q15M PRN PO DECREASED GLUCOSE; Start 07/05/17 at 16: 00 Dextrose (D50w Syringe) 25 ml Q15M PRN IV DECREASED GLUCOSE; Start 07/05/17 at 16:00 Dextrose (D50w Syringe) 50 ml Q15M PRN IV DECREASED GLUCOSE; Start 07/05/17 at 16:00 Glucagon (Glucagen) 1 mg Q15M PRN IM DECREASED GLUCOSE; Start 07/05/17 at 16: 00 Glucose (Glutose) 15 gm Q15M PRN BUCCAL DECREASED GLUCOSE; Start 07/05/17 at 16:00 Diagnostic Test (Pha) (Accu-Chek) 1 ea 02 XX Last administered on 07/12/17 02 :18; Admin Dose 1 EA; Start 07/06/17 at 02:00 Carvedilol (Coreg) 3.125 mg BID PO Last administered on 07/12/17 13:22; Admin Dose 3.125 MG; Start 07/06/17 at 10:00 Nifedipine (Procardia Xl) 60 mg BID PO Last administered on 07/12/17 13:22; Admin Dose 60 MG; Start 07/06/17 at 21:00 Hydralazine HCl (Apresoline) 10 mg Q6H PRN IV SBP>150 mm Hg Last administered on 07/07/17 00:22; Admin Dose 10 MG; Start 07/06/17 at 11:30 Collagenase (Santyl) 1 applic DAILY TOP Last administered on 07/12/17 15:45; Admin Dose 1 APPLIC; Start 07/07/17 at 09:00 Nitroglycerin (Nitroglycerin (Sl Tab) 0.4 Mg) 1 tab Q5M PRN SL ANGINA; Start 07/07/17 at 16:30 Aspirin (Aspirin) 81 mg DAILY PO Last administered on 07/12/17 09:02; Admin Dose 81 MG; Start 07/08/17 at 09:00 Atorvastatin Calcium (Lipitor) 20 mg HS PO Last administered on 07/11/17 22: 29; Admin Dose 20 MG; Start 07/07/17 at 21:00 Acetaminophen (Tylenol Tab) 650 mg Q6H PRN PO PAIN AND OR ELEVATED TEMP Last administered on 07/10/17 01:41; Admin Dose 650 MG; Start 07/10/17 at 01:30 Epoetin Johnie (Epogen (Neserd)) 6,000 units MoWeFr@17 SC Last administered on 18:07; Admin Dose 6,000 UNITS; Start 07/11/17 at 17:00 Heparin Sodium (Porcine) 5000 unit 5,000 unit BID SC Last administered on 07/12 09:21; Admin Dose 5,000 UNIT; Start 07/10/17 at 21:00 Meropenem/Sodium Chloride (Merrem 500mg/50 ml(Pmx)) 50 ml @ 100 mls/hr Q24H IVPB Last administered on 07/12/17 15:44; Admin Dose 100 MLS/HR; Start 07/12 at 15:00 Insulin Glargine (Lantus) 15 unit QHS SC Last administered on 07/11/17 22:39 ; Admin Dose 15 UNIT; Start 07/11/17 at 21:00 Citric Acid/ Sodium Citrate (Bicitra) 30 ml TID PO Last administered on 14:26; Admin Dose 30 ML; Start 07/12/17 at 09:00 Influenza Virus Vaccine (Fluzone) 0.5 ml ONCE ONCE IM* ; Start 07/13/17 at 13: 00; Stop 07/13/17 at 13:01 JANINA HAYES M.D. Jul 12, 2017 18:27
--- NOTE | 2017-07-12 19:17 | CONS ---
Date/Time of Note Date/Time of Note DATE: 07/12/17 TIME: 19:15 Assessment/Plan Assessment/Plan Chief Complaint/Hosp Course IMP: 1.Pre-op eval- Lexiscan this admit with NL EDF/ no ischemia. Echo NL EF and no sig valve abnl. Thus ok to proceed to or at low to moderate risk without further noninvasive evaluation on current medications- NOw post-op s/p AVF creation. To go for revision of R foot amputation sunday. 2.chest pain-intermittent/negative trop x 3 3.abnl ecg 4.PAD s/p toe amputation 5.DM with DKA Recc: -Now on med-surg -Continue asa/statin/coreg/procardia XL -Local wound care -Pain control Problems: Consultation Date/Type/Reason Admit Date/Time Jul 04, 2017 at 15:43 Initial Consult Date 07/04/17 Type of Consultation: cardiology Reason for Consultation chest pain Referring Provider: DIMA SMITH MD Exam/Review of Systems Vital Signs Vitals Vital Signs Date Time Temp Pulse Resp B/P Pulse Ox O2 Delivery O2 Flow Rate FiO2 07/12/17 14:00 98.0 71 18 131/79 98 07/09/17 19:36 Room Air Intake and Output 07/11/17 07/11/17 07/12/17 15:00 23:00 07:00 Intake Total 700 ml Output Total 600 ml Balance 100 ml Exam Review of Systems: CONSTITUTIONAL: No fevers, chills. PULMONARY: No sob CARDIOVASCULAR: No chest pain/palpitations GASTROINTESTINAL: No nausea/vomiting. GENITOURINARY: No hematuria/dysuria. MUSCULOSKELETAL: No myagias/arthalgias. PSYCHIATRIC: The patient denies depression. NEUROLOGIC: No weakness Constitutional: alert, oriented Psych: no complaints ENMT: mucosa pink and moist Neck: jvd (9 cm water), supple Respiratory: diminished breath sounds (at bases/B) Cardiovascular: regular rate and rhythm Gastrointestinal: non-tender, soft Musculoskeletal: muscle tone (normal) Extremities: edema (none) 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: other (No focal deficits) Results Result Diagram: 07/12/17 0458 07/12/17 0458 Results 24 hrs Laboratory Tests Test 07/11/17 22:32 07/12/17 02:17 07/12/17 04:58 07/12/17 08:40 Bedside Glucose 213 166 101 White Blood Count 13.4 H Red Blood Count 3.13 L Hemoglobin 8.9 L Hematocrit 27.5 L Mean Corpuscular Volume 87.9 Mean Corpuscular Hemoglobin 28.4 L Mean Corpuscular Hemoglobin Concent 32.4 Red Cell Distribution Width 13.4 Platelet Count 221 Mean Platelet Volume 11.4 H Neutrophils % 80.0 H Lymphocytes % 10.2 L Monocytes % 7.0 Eosinophils % 1.9 Basophils % 0.3 Nucleated Red Blood Cells % 0.0 Neutrophils # 10.7 H Lymphocytes # 1.4 Monocytes # 0.9 Eosinophils # 0.3 Basophils # 0.0 Nucleated Red Blood Cells # 0.0 Sodium Level 139 Potassium Level 3.4 L Chloride Level 97 Carbon Dioxide Level 32 H Anion Gap 13 Blood Urea Nitrogen 40 H Creatinine 5.98 H Glucose Level 127 # Calcium Level 8.6 Test 07/12/17 12:47 07/12/17 17:23 Bedside Glucose 219 254 H Medications Medications Current Medications Ondansetron HCl (Zofran Inj) 4 mg Q4H PRN IV NAUSEA AND/OR VOMITING Last administered on 07/11/17 09:15; Admin Dose 4 MG; Start 07/05/17 at 00:00 Miscellaneous Information 1 ea NOTE XX ; Start 07/05/17 at 16:00 Glucose (Glutose) 15 gm Q15M PRN PO DECREASED GLUCOSE; Start 07/05/17 at 16:00 Glucose (Glutose) 22.5 gm Q15M PRN PO DECREASED GLUCOSE; Start 07/05/17 at 16: 00 Dextrose (D50w Syringe) 25 ml Q15M PRN IV DECREASED GLUCOSE; Start 07/05/17 at 16:00 Dextrose (D50w Syringe) 50 ml Q15M PRN IV DECREASED GLUCOSE; Start 07/05/17 at 16:00 Glucagon (Glucagen) 1 mg Q15M PRN IM DECREASED GLUCOSE; Start 07/05/17 at 16: 00 Glucose (Glutose) 15 gm Q15M PRN BUCCAL DECREASED GLUCOSE; Start 07/05/17 at 16:00 Diagnostic Test (Pha) (Accu-Chek) 1 ea 02 XX Last administered on 07/12/17 02 :18; Admin Dose 1 EA; Start 07/06/17 at 02:00 Carvedilol (Coreg) 3.125 mg BID PO Last administered on 07/12/17 13:22; Admin Dose 3.125 MG; Start 07/06/17 at 10:00 Nifedipine (Procardia Xl) 60 mg BID PO Last administered on 07/12/17 13:22; Admin Dose 60 MG; Start 07/06/17 at 21:00 Hydralazine HCl (Apresoline) 10 mg Q6H PRN IV SBP>150 mm Hg Last administered on 07/07/17 00:22; Admin Dose 10 MG; Start 07/06/17 at 11:30 Collagenase (Santyl) 1 applic DAILY TOP Last administered on 07/12/17 15:45; Admin Dose 1 APPLIC; Start 07/07/17 at 09:00 Nitroglycerin (Nitroglycerin (Sl Tab) 0.4 Mg) 1 tab Q5M PRN SL ANGINA; Start 07/07/17 at 16:30 Aspirin (Aspirin) 81 mg DAILY PO Last administered on 07/12/17 09:02; Admin Dose 81 MG; Start 07/08/17 at 09:00 Atorvastatin Calcium (Lipitor) 20 mg HS PO Last administered on 07/11/17 22: 29; Admin Dose 20 MG; Start 07/07/17 at 21:00 Acetaminophen (Tylenol Tab) 650 mg Q6H PRN PO PAIN AND OR ELEVATED TEMP Last administered on 07/10/17 01:41; Admin Dose 650 MG; Start 07/10/17 at 01:30 Epoetin Johnie (Epogen (Neserd)) 6,000 units MoWeFr@17 SC Last administered on 18:07; Admin Dose 6,000 UNITS; Start 07/11/17 at 17:00 Heparin Sodium (Porcine) 5000 unit 5,000 unit BID SC Last administered on 07/12 09:21; Admin Dose 5,000 UNIT; Start 07/10/17 at 21:00 Meropenem/Sodium Chloride (Merrem 500mg/50 ml(Pmx)) 50 ml @ 100 mls/hr Q24H IVPB Last administered on 07/12/17 15:44; Admin Dose 100 MLS/HR; Start 07/12 at 15:00 Insulin Glargine (Lantus) 15 unit QHS SC Last administered on 10/25/17at 22:39 ; Admin Dose 15 UNIT; Start 07/11/17 at 21:00 Citric Acid/ Sodium Citrate (Bicitra) 30 ml TID PO Last administered on 14:26; Admin Dose 30 ML; Start 07/12/17 at 09:00 Influenza Virus Vaccine (Fluzone) 0.5 ml ONCE ONCE IM* ; Start 07/13/17 at 13: 00; Stop 07/13/17 at 13:01 IV Flush (NS 10 ml) 10 ml PRN PRN IV IV PROTOCOL; Start 07/12/17 at 19:30; Status UNV FADUMO HOLLIS Jul 12, 2017 19:17
[2017-07-12] MEDS: ATORVASTATIN 20 MG TAB PO SCH (20:35)
--- NOTE | 2017-07-12 20:40 | RADRPT ---
PROCEDURE: Ultrasound guidance for placement of needle in right upper extremity vein. CLINICAL INDICATION: PICC placement. TECHNIQUE: Limited sonography of the right upper extremity was performed. Ultrasound images were recorded and s tored in the patient's medical record. COMPARISON: Chest radiograph of the same day. FINDINGS: The ultrasound images demonstrate a patent right upper extremity vein. The PICC line was inserted by the PICC line nurse. IMPRESSION: 1. Ultrasound guidance for a needle placement in a right upper extremity vein. 2. The visualized right upper extremity vein is patent. RPTAT: HH .Khadra Foy MD, MD Date Time Electronically viewed and signed by .Khadra Foy MD, MD on 07/12/2017 20:39 .N/
[2017-07-12] MEDS: INSULIN GLARGINE [LANtus] 3 ML PEN SC SCH (21:12)
[2017-07-13] VITALS (7 sets, daily range): BP systolic 134–176; BP diastolic 68–84; PULSE 85–87; RESP 16–18
[2017-07-13] MEDS: ACCUCHECK AT 2AM (Patients on SS coverage) XX SCH (02:13)
[2017-07-13] MEDS: INSULIN ASPART [NOVOLOG] 3 ML PEN SC SCH ×6 (07:50→20:21)
--- NOTE | 2017-07-13 08:15 | RADRPT ---
PROCEDURE: XR Chest. CLINICAL INDICATION: Check PICC line position. TECHNIQUE: Single frontal view. COMPARISON: 07/07/2017. FINDINGS: There is a right arm PICC line with the tip in the lower superior vena cava. The tunneled right int ernal jugular vein dialysis catheter remains in satisfactory position. The lungs are clear. The heart size is normal. There is no pleural effusion. There is no pneumothorax. IMPRESSION: 1. Right arm PICC line tip in satisfactory position. 2. No other change from 07/07/2017. RPTAT: QQ .Handy Naidu MD, Date Time Electronically viewed and signed by .Handy Naidu MD, MD on 07/13/2017 08:15 .R/
[2017-07-13] MEDS: NIFEdipine (XL) 60 MG TAB PO SCH ×2 (08:49→20:15)
[2017-07-13] MEDS: ASPIRIN 81 MG TAB PO SCH (08:49)
[2017-07-13] MEDS: CITRIC ACID/SODIUM CITRATE 15 ML CUP PO SCH ×3 (08:49→20:13)
[2017-07-13] MEDS: COLLAGENASE 30 GM TUBE TOP SCH (09:03)
[2017-07-13] MEDS: HEPARIN 5,000 UNIT/0.5 ML VIAL SC SCH ×2 (09:06→20:18)
--- NOTE | 2017-07-13 09:07 | CONS ---
Date/Time of Note Date/Time of Note DATE: 07/13/17 TIME: 09:04 Assessment/Plan Assessment/Plan Additional Assessment/Plan 1. Acute kidney Injury vs MARICRUZ on CKD due to severe prerenal azotemia + ATN From DKA- started on HD during this admission 2. Severe metabolic acidosis with PH 7.1- Resolved with HD and insulin gtt 3. Hyponatremia= Resolved 4. acute Diabeic ketoacidosis S/p insulin gtt 5. IDDM with Diabetic kidney disease 6. ESBL E Coli UTI 7. Concern about Iron Overload 8.. RLE wound, S/p Podiatry evluation and follow up yesterday Plan ; s/p Right Permacatht- started on HD during this admission - Hd ordered for tomorrow MRI abdomen has been ordered due to possible concern about iron overload S/p LUE AVF placement Hepatitis panel and HIV negative Outpatient HD placement has been requested- pt accepted at [facility] on ,, , sunday schedule ESBL E Coli UTI< s/p PICC Line, need IV abx ertapenem SNFplacemnt to finish IV abx Consultation Date/Type/Reason Admit Date/Time Jul 04, 2017 at 15:43 Initial Consult Date 07/04/17 Type of Consultation: NEPHROLOGY Referring Provider: DIMA SMITH MD Exam/Review of Systems Vital Signs Vitals Vital Signs Date Time Temp Pulse Resp B/P Pulse Ox O2 Delivery O2 Flow Rate FiO2 07/13/17 08:00 98.7 82 16 161/75 99 07/12/17 20:34 Room Air Intake and Output 07/12/17 07/12/17 07/13/17 15:00 23:00 07:00 Intake Total 500 ml 870 ml Output Total 2000 ml 300 ml Balance -1500 ml 570 ml Exam Constitutional: alert, awake Respiratory: clear to auscultation, congested cough, diminished breath sounds Cardiovascular: other (tachycardia ), regular rate and rhythm Gastrointestinal: non-tender, soft Musculoskeletal: nl extremities to inspection, nl gait and stance, Right chest permacath Extremities: normal pulses, right foot dressing in place 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: METHODS ANALYST DATA PROCESSING II-XII intact, nl mental status, nl speech, nl strength Results Result Diagram: 07/13/1743907/13/17439 Results 24 hrs Laboratory Tests Test 07/12/17 12:47 07/12/17:23 07/12/17 20:19 07/13/17 02:11 Bedside Glucose 219 254 H 287 H 321 H Test 07/13/17 04:40 07/13/17 08:37 White Blood Count 9.4 # Red Blood Count 2.84 L Hemoglobin 7.9 L Hematocrit 25.5 L Mean Corpuscular Volume 89.8 Mean Corpuscular Hemoglobin 27.8 L Mean Corpuscular Hemoglobin Concent 31.0 L Red Cell Distribution Width 13.6 Platelet Count 248 Mean Platelet Volume 11.6 H Neutrophils % 69.2 Lymphocytes % 16.7 Monocytes % 10.2 Eosinophils % 2.7 Basophils % 0.5 Nucleated Red Blood Cells % 0.0 Neutrophils # 6.5 Lymphocytes # 1.6 Monocytes # 1.0 H Eosinophils # 0.3 Basophils # 0.1 Nucleated Red Blood Cells # 0.0 Sodium Level 137 Potassium Level 3.7 Chloride Level 99 Carbon Dioxide Level 29 Anion Gap 13 Blood Urea Nitrogen 32 H Creatinine 5.23 H Glucose Level 339 #H Calcium Level 8.7 Bedside Glucose 413 *H Medications Medications Current Medications Ondansetron HCl (Zofran Inj) 4 mg Q4H PRN IV NAUSEA AND/OR VOMITING Last administered on 07/11/17 09:15; Admin Dose 4 MG; Start 07/05/17 at 00:00 Miscellaneous Information 1 ea NOTE XX ; Start 07/05/17 at 16:00 Glucose (Glutose) 15 gm Q15M PRN PO DECREASED GLUCOSE; Start 07/05/17 at 16:00 Glucose (Glutose) 22.5 gm Q15M PRN PO DECREASED GLUCOSE; Start 07/05/17 at 16: 00 Dextrose (D50w Syringe) 25 ml Q15M PRN IV DECREASED GLUCOSE; Start 07/05/17 at 16:00 Dextrose (D50w Syringe) 50 ml Q15M PRN IV DECREASED GLUCOSE; Start 07/05/17 at 16:00 Glucagon (Glucagen) 1 mg Q15M PRN IM DECREASED GLUCOSE; Start 07/05/17 at 16: 00 Glucose (Glutose) 15 gm Q15M PRN BUCCAL DECREASED GLUCOSE; Start 07/05/17 at 16:00 Diagnostic Test (Pha) (Accu-Chek) 1 ea 02 XX Last administered on 07/13/17 02 :13; Admin Dose 1 EA; Start 07/06/17 at 02:00 Carvedilol (Coreg) 3.125 mg BID PO Last administered on 07/12/17 13:22; Admin Dose 3.125 MG; Start 07/06/17 at 10:00 Nifedipine (Procardia Xl) 60 mg BID PO Last administered on 07/12/17 13:22; Admin Dose 60 MG; Start 07/06/17 at 21:00 Hydralazine HCl (Apresoline) 10 mg Q6H PRN IV SBP>150 mm Hg Last administered on 07/07/17 00:22; Admin Dose 10 MG; Start 07/06/17 at 11:30 Collagenase (Santyl) 1 applic DAILY TOP Last administered on 07/12/17 15:45; Admin Dose 1 APPLIC; Start 07/07/17 at 09:00 Nitroglycerin (Nitroglycerin (Sl Tab) 0.4 Mg) 1 tab Q5M PRN SL ANGINA; Start 07/07/17 at 16:30 Aspirin (Aspirin) 81 mg DAILY PO Last administered on 07/12/17 09:02; Admin Dose 81 MG; Start 07/08/17 at 09:00 Atorvastatin Calcium (Lipitor) 20 mg HS PO Last administered on 07/12/17 20: 35; Admin Dose 20 MG; Start 07/07/17 at 21:00 Acetaminophen (Tylenol Tab) 650 mg Q6H PRN PO PAIN AND OR ELEVATED TEMP Last administered on 07/10/17 01:41; Admin Dose 650 MG; Start 07/10/17 at 01:30 Epoetin Johnie (Epogen (Neserd)) 6,000 units MoWeFr@17 SC Last administered on 18:07; Admin Dose 6,000 UNITS; Start 07/11/17 at 17:00 Heparin Sodium (Porcine) 5000 unit 5,000 unit BID SC Last administered on 07/12 21:14; Admin Dose 5,000 UNIT; Start 07/10/17 at 21:00 Meropenem/Sodium Chloride (Merrem 500mg/50 ml(Pmx)) 50 ml @ 100 mls/hr Q24H IVPB Last administered on 07/12/17 15:44; Admin Dose 100 MLS/HR; Start 07/12 at 15:00 Insulin Glargine (Lantus) 15 unit QHS SC Last administered on 07/12/17 21:12 ; Admin Dose 15 UNIT; Start 07/11/17 at 21:00 Citric Acid/ Sodium Citrate (Bicitra) 30 ml TID PO Last administered on 20:34; Admin Dose 30 ML; Start 07/12/17 at 09:00 Influenza Virus Vaccine (Fluzone) 0.5 ml ONCE ONCE IM* ; Start 07/13/17 at 13: 00; Stop 07/13/17 at 13:01 IV Flush (NS 10 ml) 10 ml PRN PRN IV IV PROTOCOL; Start 07/12/17 at 19:30 JENNIFER LUKE MD Jul 13, 2017 09:07
[2017-07-13] MEDS ORDERED: INSULIN GLARGINE [LANtus] 3 ML PEN SC ONE (11:30)
[2017-07-13] MEDS: hydrALAzine 20 MG INJ IV PRN (12:50)
[2017-07-13] MEDS ORDERED: INFLUENZA VIRUS VACCINE 0.5 ML SYG IM* ONE (13:00)
--- NOTE | 2017-07-13 14:39 | CONS ---
Date/Time of Note Date/Time of Note DATE: 07/13/17 TIME: 14:37 Assessment/Plan Assessment/Plan Chief Complaint/Hosp Course IMP: 1.Pre-op eval- Lexiscan this admit with NL EDF/ no ischemia. Echo NL EF and no sig valve abnl. Thus ok to proceed to or at low to moderate risk without further noninvasive evaluation on current medications- NOw post-op s/p AVF creation. To go for revision of R foot amputation today? 2.chest pain-intermittent/negative trop x 3 3.abnl ecg 4.PAD s/p toe amputation 5.DM with DKA Recc: -Now on med-surg -Continue asa/statin/coreg/procardia XL -Local wound care -Pain control -Possible R foot surgical revision today Problems: Consultation Date/Type/Reason Admit Date/Time Jul 04, 2017 at 15:43 Initial Consult Date 07/04/17 Type of Consultation: cardiology Reason for Consultation pre-op/HTN Referring Provider: DIMA SMITH MD Exam/Review of Systems Vital Signs Vitals Vital Signs Date Time Temp Pulse Resp B/P Pulse Ox O2 Delivery O2 Flow Rate FiO2 07/13/17 10:54 97.9 85 16 176/84 99 07/12/17 20:34 Room Air Intake and Output 07/12/17 07/12/17 07/13/17 15:00 23:00 07:00 Intake Total 500 ml 870 ml Output Total 2000 ml 300 ml Balance -1500 ml 570 ml Exam Review of Systems: CONSTITUTIONAL: No fevers, chills. PULMONARY: No sob CARDIOVASCULAR: No chest pain/palpitations GASTROINTESTINAL: No nausea/vomiting. GENITOURINARY: No hematuria/dysuria. MUSCULOSKELETAL: No myagias/arthalgias. PSYCHIATRIC: The patient denies depression. NEUROLOGIC: No weakness Constitutional: alert, oriented Psych: no complaints Head: normocephalic ENMT: mucosa pink and moist Neck: jvd (9 cm water), supple Respiratory: diminished breath sounds (at bases/B) Cardiovascular: regular rate and rhythm Gastrointestinal: non-tender, soft Musculoskeletal: muscle tone (normal) Extremities: edema (none) 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: other (No focal deficits) Results Result Diagram: 07/13/17 0440 07/13/17 0440 Results 24 hrs Laboratory Tests Test 07/12/17 17:23 07/12/17 20:19 07/13/17 02:11 07/13/17 04:40 Bedside Glucose 254 H 287 H 321 H White Blood Count 9.4 # Red Blood Count 2.84 L Hemoglobin 7.9 L Hematocrit 25.5 L Mean Corpuscular Volume 89.8 Mean Corpuscular Hemoglobin 27.8 L Mean Corpuscular Hemoglobin Concent 31.0 L Red Cell Distribution Width 13.6 Platelet Count 248 Mean Platelet Volume 11.6 H Neutrophils % 69.2 Lymphocytes % 16.7 Monocytes % 10.2 Eosinophils % 2.7 Basophils % 0.5 Nucleated Red Blood Cells % 0.0 Neutrophils # 6.5 Lymphocytes # 1.6 Monocytes # 1.0 H Eosinophils # 0.3 Basophils # 0.1 Nucleated Red Blood Cells # 0.0 Sodium Level 137 Potassium Level 3.7 Chloride Level 99 Carbon Dioxide Level 29 Anion Gap 13 Blood Urea Nitrogen 32 H Creatinine 5.23 H Glucose Level 339 #H Calcium Level 8.7 Test 07/13/17 08:37 07/13/17 11:08 07/13/17 12:33 07/13/17 14:15 Bedside Glucose 413 *H 430 *H 379 H 272 H Medications Medications Current Medications Ondansetron HCl (Zofran Inj) 4 mg Q4H PRN IV NAUSEA AND/OR VOMITING Last administered on 07/11/17t 09:15; Admin Dose 4 MG; Start 07/05/17 at 00:00 Miscellaneous Information 1 ea NOTE XX ; Start 07/05/17 at 16:00 Glucose (Glutose) 15 gm Q15M PRN PO DECREASED GLUCOSE; Start 07/05/17 at 16:00 Glucose (Glutose) 22.5 gm Q15M PRN PO DECREASED GLUCOSE; Start 07/05/17 at 16: 00 Dextrose (D50w Syringe) 25 ml Q15M PRN IV DECREASED GLUCOSE; Start 07/05/17 at 16:00 Dextrose (D50w Syringe) 50 ml Q15M PRN IV DECREASED GLUCOSE; Start 07/05/17 at 16:00 Glucagon (Glucagen) 1 mg Q15M PRN IM DECREASED GLUCOSE; Start 07/05/17 at 16: 00 Glucose (Glutose) 15 gm Q15M PRN BUCCAL DECREASED GLUCOSE; Start 07/05/17 at 16:00 Diagnostic Test (Pha) (Accu-Chek) 1 ea 02 XX Last administered on 07/13/17 02 :13; Admin Dose 1 EA; Start 07/06/17 at 02:00 Carvedilol (Coreg) 3.125 mg BID PO Last administered on 07/13/17 08:50; Admin Dose 3.125 MG; Start 07/06/17 at 10:00 Nifedipine (Procardia Xl) 60 mg BID PO Last administered on 07/13/17 08:49; Admin Dose 60 MG; Start 07/06/17 at 21:00 Hydralazine HCl (Apresoline) 10 mg Q6H PRN IV SBP>150 mm Hg Last administered on 07/13/17 12:50; Admin Dose 10 MG; Start 07/06/17 at 11:30 Collagenase (Santyl) 1 applic DAILY TOP Last administered on 07/13/17 09:03; Admin Dose 1 APPLIC; Start 07/07/17 at 09:00 Nitroglycerin (Nitroglycerin (Sl Tab) 0.4 Mg) 1 tab Q5M PRN SL ANGINA; Start 07/07/17 at 16:30 Aspirin (Aspirin) 81 mg DAILY PO Last administered on 07/13/17 08:49; Admin Dose 81 MG; Start 07/08/17 at 09:00 Atorvastatin Calcium (Lipitor) 20 mg HS PO Last administered on 07/12/17 20: 35; Admin Dose 20 MG; Start 07/07/17 at 21:00 Acetaminophen (Tylenol Tab) 650 mg Q6H PRN PO PAIN AND OR ELEVATED TEMP Last administered on 07/10/17 01:41; Admin Dose 650 MG; Start 07/10/17 at 01:30 Epoetin Johnie (Epogen (Neserd)) 6,000 units MoWeFr@17 SC Last administered on 18:07; Admin Dose 6,000 UNITS; Start 07/11/17 at 17:00 Heparin Sodium (Porcine) 5000 unit 5,000 unit BID SC Last administered on 07/13 09:06; Admin Dose 5,000 UNIT; Start 07/10/17 at 21:00 Meropenem/Sodium Chloride (Merrem 500mg/50 ml(Pmx)) 50 ml @ 100 mls/hr Q24H IVPB Last administered on 07/12/17 15:44; Admin Dose 100 MLS/HR; Start 07/12 at 15:00 Citric Acid/ Sodium Citrate (Bicitra) 30 ml TID PO Last administered on 12:50; Admin Dose 30 ML; Start 07/12/17 at 09:00 IV Flush (NS 10 ml) 10 ml PRN PRN IV IV PROTOCOL; Start 07/12/17 at 19:30 Insulin Glargine (Lantus) 22 unit QHS SC ; Start 07/13/17 at 21:00 FADUMO HOLLIS Jul 13, 2017 14:39
[2017-07-13] MEDS ORDERED: LANT3I SC (15:00)
[2017-07-13] MEDS ORDERED: ASPI81TA3 PO (15:00)
[2017-07-13] MEDS ORDERED: NOVO3I SC (15:00)
[2017-07-13] MEDS ORDERED: SAN30GM TOP (15:01)
[2017-07-13] MEDS: MEROPENEM 500MG/50 ML (PMX) 50 ML IVPB SCH (15:51)
[2017-07-13] MEDS: EPOETIN ALFA (NESRD) 3,000 UNITS/ML VIAL SC SCH (18:05)
[2017-07-13] MEDS: ATORVASTATIN 20 MG TAB PO SCH (20:15)
[2017-07-13] MEDS ORDERED: INSULIN GLARGINE [LANtus] 3 ML PEN SC SCH (21:00)
[2017-07-14] VITALS (12 sets, daily range): BP systolic 85–165; BP diastolic 49–84; PULSE 74–77; RESP 18
[2017-07-14] MEDS: ACCUCHECK AT 2AM (Patients on SS coverage) XX SCH (01:40)
[2017-07-14] MEDS: ASPIRIN 81 MG TAB PO SCH (08:42)
[2017-07-14] MEDS: CITRIC ACID/SODIUM CITRATE 15 ML CUP PO SCH ×2 (08:43→13:16)
[2017-07-14] MEDS: COLLAGENASE 30 GM TUBE TOP SCH (08:43)
[2017-07-14] MEDS: NIFEdipine (XL) 60 MG TAB PO SCH (08:44)
[2017-07-14] MEDS: INSULIN ASPART [NOVOLOG] 3 ML PEN SC SCH ×4 (08:47→13:20)
[2017-07-14] MEDS: HEPARIN 5,000 UNIT/0.5 ML VIAL SC SCH (08:48)
--- NOTE | 2017-07-14 10:59 | PN ---
Date/Time of Note Date/Time of Note DATE: 07/14/17 TIME: 10:58 Assessment/Plan VTE Prophylaxis VTE Prophylaxis Intervention: heparin Assessment/Plan Chief Complaint/Hosp Course 1. DKA-resolved 2. Diabetes-sugars still elevated and DC to shelter being held Continue Lantus and mealtime insulin, continue sliding scale 3. CKD now having progressed to ESRD secondary to diabetic nephropathy HD has been initiated, status post fistula placement, patient now has outpatient HD arrangements Nephrology following 4. Hypokalemia Replete 5. Anemia secondary to end-stage renal disease and chronic disease Epogen per renal 6. Chronic diabetic ulcer Continue wound care Podiatry consultation appreciated, plan is for revision of the right foot 7. PAD Continue aspirin and statin 8. Hypertension-stable Continue nifedipine 60, Coreg 3.125 for now, titrate as needed 9. UTI secondary to ESBL E. Coli PICC line placed today and will be discharged with meropenem likely tomorrow Prophylaxis: Heparin Problems: Subjective 24 Hr Interval Summary Constitutional: no complaints Exam/Review of Systems Vital Signs Vitals Vital Signs Date Time Temp Pulse Resp B/P Pulse Ox O2 Delivery O2 Flow Rate FiO2 07/14/17 09:00 75 07/14/17 08:17 97.8 18 165/81 90 07/12/17 20:34 Room Air Intake and Output 07/13/17 07/13/17 07/14/17 15:00 23:00 07:00 Intake Total 700 ml 1050 ml 750 ml Output Total 600 ml 400 ml Balance 700 ml 450 ml 350 ml Exam Constitutional: alert, oriented Respiratory: clear to auscultation Cardiovascular: regular rate and rhythm Gastrointestinal: soft, No distended Musculoskeletal: nl extremities to inspection Results Result Diagram: 07/13/17 0440 07/13/17 0440 Results 24 hrs Laboratory Tests Test 07/13/17 11:08 07/13/17 12:33 07/13/17 14:15 07/13/17 17:52 Bedside Glucose 430 *H 379 H 272 H 230 H Test 07/13/17 20:10 07/14/17 01:30 07/14/17 08:41 Bedside Glucose 242 H 157 224 H Medications Medications Current Medications Ondansetron HCl (Zofran Inj) 4 mg Q4H PRN IV NAUSEA AND/OR VOMITING Last administered on 07/11/17 09:15; Admin Dose 4 MG; Start 07/05/17 at 00:00 Miscellaneous Information 1 ea NOTE XX ; Start 07/05/17 at 16:00 Glucose (Glutose) 15 gm Q15M PRN PO DECREASED GLUCOSE; Start 07/05/17 at 16:00 Glucose (Glutose) 22.5 gm Q15M PRN PO DECREASED GLUCOSE; Start 07/05/17 at 16: 00 Dextrose (D50w Syringe) 25 ml Q15M PRN IV DECREASED GLUCOSE; Start 07/05/17 at 16:00 Dextrose (D50w Syringe) 50 ml Q15M PRN IV DECREASED GLUCOSE; Start 07/05/17 at 16:00 Glucagon (Glucagen) 1 mg Q15M PRN IM DECREASED GLUCOSE; Start 07/05/17 at 16: 00 Glucose (Glutose) 15 gm Q15M PRN BUCCAL DECREASED GLUCOSE; Start 07/05/17 at 16:00 Diagnostic Test (Pha) (Accu-Chek) 1 ea 02 XX Last administered on 07/13/17 02 :13; Admin Dose 1 EA; Start 07/06/17 at 02:00 Nifedipine (Procardia Xl) 60 mg BID PO Last administered on 07/13/17 20:15; Admin Dose 60 MG; Start 07/06/17 at 21:00 Hydralazine HCl (Apresoline) 10 mg Q6H PRN IV SBP>150 mm Hg Last administered on 07/13/17 12:50; Admin Dose 10 MG; Start 07/06/17 at 11:30 Collagenase (Santyl) 1 applic DAILY TOP Last administered on 07/14/17 08:43; Admin Dose 1 APPLIC; Start 07/07/17 at 09:00 Nitroglycerin (Nitroglycerin (Sl Tab) 0.4 Mg) 1 tab Q5M PRN SL ANGINA; Start 07/07/17 at 16:30 Aspirin (Aspirin) 81 mg DAILY PO Last administered on 07/14/17 08:42; Admin Dose 81 MG; Start 07/08/17 at 09:00 Atorvastatin Calcium (Lipitor) 20 mg HS PO Last administered on 07/13/17 20: 15; Admin Dose 20 MG; Start 07/07/17 at 21:00 Acetaminophen (Tylenol Tab) 650 mg Q6H PRN PO PAIN AND OR ELEVATED TEMP Last administered on 07/10/17 01:41; Admin Dose 650 MG; Start 07/10/17 at 01:30 Epoetin Johnie (Epogen (Neserd)) 6,000 units MoWeFr@17 SC Last administered on 18:05; Admin Dose 6,000 UNITS; Start 07/11/17 at 17:00 Heparin Sodium (Porcine) 5000 unit 5,000 unit BID SC Last administered on 07/14 08:48; Admin Dose 5,000 UNIT; Start 07/10/17 at 21:00 Meropenem/Sodium Chloride (Merrem 500mg/50 ml(Pmx)) 50 ml @ 100 mls/hr Q24H IVPB Last administered on 07/13/17 15:51; Admin Dose 100 MLS/HR; Start 07/12 at 15:00 Citric Acid/ Sodium Citrate (Bicitra) 30 ml TID PO Last administered on 08:43; Admin Dose 30 ML; Start 07/12/17 at 09:00 IV Flush (NS 10 ml) 10 ml PRN PRN IV IV PROTOCOL; Start 07/12/17 at 19:30 Insulin Glargine (Lantus) 22 unit QHS SC Last administered on 07/13/17 20:19 ; Admin Dose 22 UNIT; Start 07/13/17 at 21:00 Carvedilol (Coreg) 6.25 mg BID PO Last administered on 07/13/17 20:14; Admin Dose 6.25 MG; Start 07/13/17 at 21:00 KAPIL PAREDES Jul 14, 2017 10:59
--- NOTE | 2017-07-14 12:46 | DS ---
Date/Time of Note Date/Time of Note DATE: 07/14/17 TIME: 12:38 Discharge Summary Admission/Discharge Info Admit Date/Time Jul 04, 2017 at 15:43 Discharge Date/Time July 14, 2017 Discharge Diagnosis 1. DKA-resolved 2. Diabetes-sugars now improved DC with new regimen of Lantus and mealtime insulin, continue sliding scale 3. CKD now having progressed to ESRD secondary to diabetic nephropathy HD has been initiated, status post fistula placement, patient now has outpatient HD arrangements Nephrology following 4. Hypokalemia Repleted 5. Anemia secondary to end-stage renal disease and chronic disease Epogen per renal 6. Chronic diabetic ulcer Continue wound care Podiatry consultation appreciated, plan is for revision of the right foot as an outpatient 7. PAD Continue aspirin and statin 8. Hypertension-stable Continue nifedipine 60, Coreg 3.125 for now, titrate as needed 9. UTI secondary to ESBL E. Coli PICC line placed and will be discharged with meropenem Patient Condition: Good Hospital Course Patient is a 47 yo male with h/o DM on insulin, CKD and previous toe amputation presents with DKA. Patient had acute kidney injury secondary to DKA and patient progressed to end-stage renal disease during this hospitalization, PermCath was placed as was fistula and patient was initiated on dialysis. Patient did have outpatient arrangements for dialysis patient was seen by a electromedical equipment technician for right toe amputation revision and the decision was made to have this done as an outpatient. Patient was found to have UTI secondary to ESBL E. coli and patient had a PICC line placed for meropenem 1 week at a [facility] facility. Patient's sugars were elevated and required increases in both Lantus and mealtime insulin dosing, patient's sugars ultimately will control the patient was felt to be stable for discharge, on day of discharge patient vitals labs and physical exam stable in no acute complaints questions answered. Of note patient is to continue dialysis Tuesdays and Saturdays. Home Meds Active Scripts Collagenase* (Santyl*) 30 Gm Oint..gm., 1 APPLIC TOP DAILY, #1 TUB Prov:KAPIL PAREDES 07/13/17 Insulin Glargine* (Lantus*) 100 Unit/Ml Soln, 22 UNIT SC QHS, #1 VIAL Prov:KAPIL PAREDES 07/13/17 Insulin Aspart* (Novolog Insulin Pen*) 100 Unit/Ml Soln, 11 UNIT SC WITH MEALS, #1 VIAL Prov:KAPIL PAREDES 07/13/17 Aspirin (Aspirin) 81 Mg Chew, 81 MG PO DAILY, #60 TAB Prov:KAPIL PAREDES 07/13/17 Reported Medications Lisinopril* (Lisinopril*) 10 Mg Tablet, 10 MG PO DAILY, #30 TAB 07/04/17 Nifedipine* (Nifedipine ER*) 30 Mg Tablet.sa, 30 MG PO DAILY, TAB.SA 07/04/17 Tamsulosin Hcl* (Tamsulosin Hcl*) 0.4 Mg Cap.er.24h, 0.4 MG PO HS, CAP 07/04/17 Atorvastatin* (Atorvastatin*) 80 Mg Tablet, 80 MG PO QHS, #30 TAB 07/04/17 Discontinued Reported Medications Insulin Aspart (Novolog) 100 Unit/1 Ml Cartridge, 4 UNIT SQ AC BREAKFAST 07/04/17 Follow-up Plan Follow-up with physicians at [facility] facility as well as with dialysis center Primary Care Provider Not On Staff Doctor Time spent on discharge: > 30 minutes KAPIL PAREDES Jul 14, 2017 12:46
--- NOTE | 2017-07-14 12:46 | DS ---
Date/Time of Note Date/Time of Note DATE: 07/14/17 TIME: 12:38 Discharge Summary Admission/Discharge Info Admit Date/Time Jul 04, 2017 at 15:43 Discharge Date/Time July 14, 2017 Discharge Diagnosis 1. DKA-resolved 2. Diabetes-sugars now improved DC with new regimen of Lantus and mealtime insulin, continue sliding scale 3. CKD now having progressed to ESRD secondary to diabetic nephropathy HD has been initiated, status post fistula placement, patient now has outpatient HD arrangements Nephrology following 4. Hypokalemia Repleted 5. Anemia secondary to end-stage renal disease and chronic disease Epogen per renal 6. Chronic diabetic ulcer Continue wound care Podiatry consultation appreciated, plan is for revision of the right foot as an outpatient 7. PAD Continue aspirin and statin 8. Hypertension-stable Continue nifedipine 60, Coreg 3.125 for now, titrate as needed 9. UTI secondary to ESBL E. Coli PICC line placed and will be discharged with meropenem Patient Condition: Good Hospital Course Patient is a 47 yo male with h/o DM on insulin, CKD and previous toe amputation presents with DKA. Patient had acute kidney injury secondary to DKA and patient progressed to end-stage renal disease during this hospitalization, PermCath was placed as was fistula and patient was initiated on dialysis. Patient did have outpatient arrangements for dialysis patient was seen by a forms analysis manager for right toe amputation revision and the decision was made to have this done as an outpatient. Patient was found to have UTI secondary to ESBL E. coli and patient had a PICC line placed for meropenem 1 week at a [facility]. Patient's sugars were elevated and required increases in both Lantus and mealtime insulin dosing, patient's sugars ultimately will control the patient was felt to be stable for discharge, on day of discharge patient vitals labs and physical exam stable in no acute complaints questions answered. Of note patient is to continue dialysis Tuesdays and Saturdays. Home Meds Active Scripts Collagenase* (Santyl*) 30 Gm Oint..gm., 1 APPLIC TOP DAILY, #1 TUB Prov:KAPIL PAREDES 07/13/17 Insulin Glargine* (Lantus*) 100 Unit/Ml Soln, 22 UNIT SC QHS, #1 VIAL Prov:KAPIL PAREDES 07/13/17 Insulin Aspart* (Novolog Insulin Pen*) 100 Unit/Ml Soln, 11 UNIT SC WITH MEALS, #1 VIAL Prov:KAPIL PAREDES 07/13/17 Aspirin (Aspirin) 81 Mg Chew, 81 MG PO DAILY, #60 TAB Prov:KAPIL PAREDES 07/13/17 Reported Medications Lisinopril* (Lisinopril*) 10 Mg Tablet, 10 MG PO DAILY, #30 TAB 07/04/17 Nifedipine* (Nifedipine ER*) 30 Mg Tablet.sa, 30 MG PO DAILY, TAB.SA 07/04/17 Tamsulosin Hcl* (Tamsulosin Hcl*) 0.4 Mg Cap.er.24h, 0.4 MG PO HS, CAP 07/04/17 Atorvastatin* (Atorvastatin*) 80 Mg Tablet, 80 MG PO QHS, #30 TAB 07/04/17 Discontinued Reported Medications Insulin Aspart (Novolog) 100 Unit/1 Ml Cartridge, 4 UNIT SQ AC BREAKFAST 07/04/17 Follow-up Plan Follow[facility] with physicians [facility] as well as with dialysis center Primary Care Provider Not On Staff Doctor Time spent on discharge: > 30 minutes KAPIL PAREDES Jul 14, 2017 12:46
--- NOTE | 2017-07-14 12:46 | DS ---
Date/Time of Note Date/Time of Note DATE: 07/14/17 TIME: 12:38 Discharge Summary Admission/Discharge Info Admit Date/Time Jul 04, 2017 at 15:43 Discharge Date/Time July 14, 2017 Discharge Diagnosis 1. DKA-resolved 2. Diabetes-sugars now improved DC with new regimen of Lantus and mealtime insulin, continue sliding scale 3. CKD now having progressed to ESRD secondary to diabetic nephropathy HD has been initiated, status post fistula placement, patient now has outpatient HD arrangements Nephrology following 4. Hypokalemia Repleted 5. Anemia secondary to end-stage renal disease and chronic disease Epogen per renal 6. Chronic diabetic ulcer Continue wound care Podiatry consultation appreciated, plan is for revision of the right foot as an outpatient 7. PAD Continue aspirin and statin 8. Hypertension-stable Continue nifedipine 60, Coreg 3.125 for now, titrate as needed 9. UTI secondary to ESBL E. Coli PICC line placed and will be discharged with meropenem Patient Condition: Good Hospital Course Patient is a 47 yo male with h/o DM on insulin, CKD and previous toe amputation presents with DKA. Patient had acute kidney injury secondary to DKA and patient progressed to end-stage renal disease during this hospitalization, PermCath was placed as was fistula and patient was initiated on dialysis. Patient did have outpatient arrangements for dialysis patient was seen by a diving supervisor for right toe amputation revision and the decision was made to have this done as an outpatient. Patient was found to have UTI secondary to ESBL E. coli and patient had a [facility] line [facility] Patient's sugars were elevated and required increases in both Lantus and mealtime insulin dosing, patient's sugars ultimately will control the patient was felt to be stable for discharge, on day of discharge patient vitals labs and physical exam stable in no acute complaints questions answered. Of note patient is to continue dialysis Tuesdays and Saturdays. Home Meds Active Scripts Collagenase* (Santyl*) 30 Gm Oint..gm., 1 APPLIC TOP DAILY, #1 TUB Prov:KAPIL PAREDES 07/13/17 Insulin Glargine* (Lantus*) 100 Unit/Ml Soln, 22 UNIT SC QHS, #1 VIAL Prov:KAPIL PAREDES 07/13/17 Insulin Aspart* (Novolog Insulin Pen*) 100 Unit/Ml Soln, 11 UNIT SC WITH MEALS, #1 VIAL Prov:KAPIL PAREDES 07/13/17 Aspirin (Aspirin) 81 Mg Chew, 81 MG PO DAILY, #60 TAB Prov:KAPIL PAREDES 07/13/17 Reported Medications Lisinopril* (Lisinopril*) 10 Mg Tablet, 10 MG PO DAILY, #30 TAB 07/04/17 Nifedipine* (Nifedipine ER*) 30 Mg Tablet.sa, 30 MG PO DAILY, TAB.SA 07/04/17 Tamsulosin Hcl* (Tamsulosin Hcl*) 0.4 Mg Cap.er.24h, 0.4 MG PO HS, CAP 07/04/17 Atorvastatin* (Atorvastatin*) 80 Mg Tablet, 80 MG PO QHS, #30 TAB 07/04/17 Discontinued Reported Medications Insulin Aspart (Novolog) 100 Unit/1 Ml Cartridge, 4 UNIT SQ AC BREAKFAST 07/04/17 Follow-up Plan [facility] as with dialysis center Primary Care Provider Not On Staff Doctor Time spent on discharge: > 30 minutes KAPIL PAREDES Jul 14, 2017 12:46
--- NOTE | 2017-07-14 14:09 | CONS ---
Date/Time of Note Date/Time of Note DATE: 07/14/17 TIME: 14:05 Assessment/Plan Assessment/Plan Additional Assessment/Plan Atypical chest pain PAD s/p toe amputation Diabetes DKA dyslipidemia ESRD on HD Hypertensive Continue Procardia Continue Coreg Continue Lipitor Continue Insulin Continue Antibiotics Consultation Date/Type/Reason Admit Date/Time Jul 04, 2017 at 15:43 Constitutional: no complaints Eyes: no complaints ENT: no complaints Respiratory: no complaints Cardiovascular: no complaints Gastrointestinal: nausea, pain Musculoskeletal: no complaints Skin: no complaints Neurologic: no complaints Endocrine: no complaints Lymphatic: no complaints Psychological: no complaints Immunologic: no complaints Past Medical History Medical History: diabetes Past Surgical History Past Surgical Hx: other (Testicular surgery as child, toe amputation ) Social History Alcohol Use: none Smoking Status: Former smoker Drug Use: none Exam/Review of Systems Vital Signs Vitals Vital Signs Date Time Temp Pulse Resp B/P Pulse Ox O2 Delivery O2 Flow Rate FiO2 07/14/17 09:30 75 07/14/17 09:30 16 07/14/17 08:17 97.8 165/81 90 07/12/17 20:34 Room Air Intake and Output 07/13/17 07/13/17 07/14/17 15:00 23:00 07:00 Intake Total 700 ml 1050 ml 750 ml Output Total 600 ml 400 ml Balance 700 ml 450 ml 350 ml Exam Constitutional: alert, oriented Head: atraumatic, normocephalic Neck: non-tender, supple Respiratory: clear to auscultation Cardiovascular: regular rate and rhythm Gastrointestinal: nl liver, spleen, non-tender Results Result Diagram: 07/13/17 0440 07/13/17439 Results 24 hrs Laboratory Tests Test 07/13/17 14:15 07/13/17 17:52 07/13/17 20:10 07/14/17 01:30 Bedside Glucose 272 H 230 H 242 H 157 Test 07/14/17 08:41 07/14/17 11:59 Bedside Glucose 224 H 303 H Medications Medications Current Medications Ondansetron HCl (Zofran Inj) 4 mg Q4H PRN IV NAUSEA AND/OR VOMITING Last administered on 07/11/17t 09:15; Admin Dose 4 MG; Start 07/05/17 at 00:00 Miscellaneous Information 1 ea NOTE XX ; Start 07/05/17 at 16:00 Glucose (Glutose) 15 gm Q15M PRN PO DECREASED GLUCOSE; Start 07/05/17 at 16:00 Glucose (Glutose) 22.5 gm Q15M PRN PO DECREASED GLUCOSE; Start 07/05/17 at 16: 00 Dextrose (D50w Syringe) 25 ml Q15M PRN IV DECREASED GLUCOSE; Start 07/05/17 at 16:00 Dextrose (D50w Syringe) 50 ml Q15M PRN IV DECREASED GLUCOSE; Start 07/05/17 at 16:00 Glucagon (Glucagen) 1 mg Q15M PRN IM DECREASED GLUCOSE; Start 07/05/17 at 16: 00 Glucose (Glutose) 15 gm Q15M PRN BUCCAL DECREASED GLUCOSE; Start 07/05/17 at 16:00 Diagnostic Test (Pha) (Accu-Chek) 1 ea 02 XX Last administered on 07/13/17 02 :13; Admin Dose 1 EA; Start 07/06/17 at 02:00 Nifedipine (Procardia Xl) 60 mg BID PO Last administered on 07/13/17 20:15; Admin Dose 60 MG; Start 07/06/17 at 21:00 Hydralazine HCl (Apresoline) 10 mg Q6H PRN IV SBP>150 mm Hg Last administered on 07/13/17 12:50; Admin Dose 10 MG; Start 07/06/17 at 11:30 Collagenase (Santyl) 1 applic DAILY TOP Last administered on 07/14/17 08:43; Admin Dose 1 APPLIC; Start 07/07/17 at 09:00 Nitroglycerin (Nitroglycerin (Sl Tab) 0.4 Mg) 1 tab Q5M PRN SL ANGINA; Start 07/07/17 at 16:30 Aspirin (Aspirin) 81 mg DAILY PO Last administered on 07/14/17 08:42; Admin Dose 81 MG; Start 07/08/17 at 09:00 Atorvastatin Calcium (Lipitor) 20 mg HS PO Last administered on 07/13/17 20: 15; Admin Dose 20 MG; Start 07/07/17 at 21:00 Acetaminophen (Tylenol Tab) 650 mg Q6H PRN PO PAIN AND OR ELEVATED TEMP Last administered on 07/10/17 01:41; Admin Dose 650 MG; Start 07/10/17 at 01:30 Epoetin Johnie (Epogen (Neserd)) 6,000 units MoWeFr@17 SC Last administered on 18:05; Admin Dose 6,000 UNITS; Start 07/11/17 at 17:00 Heparin Sodium (Porcine) 5000 unit 5,000 unit BID SC Last administered on 07/14 08:48; Admin Dose 5,000 UNIT; Start 07/10/17 at 21:00 Meropenem/Sodium Chloride (Merrem 500mg/50 ml(Pmx)) 50 ml @ 100 mls/hr Q24H IVPB Last administered on 07/13/17 15:51; Admin Dose 100 MLS/HR; Start 07/12 at 15:00 Citric Acid/ Sodium Citrate (Bicitra) 30 ml TID PO Last administered on 13:16; Admin Dose 30 ML; Start 07/12/17 at 09:00 IV Flush (NS 10 ml) 10 ml PRN PRN IV IV PROTOCOL; Start 07/12/17 at 19:30 Insulin Glargine (Lantus) 22 unit QHS SC Last administered on 07/13/17 20:19 ; Admin Dose 22 UNIT; Start 07/13/17 at 21:00 Carvedilol (Coreg) 6.25 mg BID PO Last administered on 07/13/17 20:14; Admin Dose 6.25 MG; Start 07/13/17 at 21:00 BRITTNEY GOLDSTEIN M.D. Jul 14, 2017 14:08
[2017-07-14] MEDS: MEROPENEM 500MG/50 ML (PMX) 50 ML IVPB SCH (14:55)
== END 2017-07-14 15:48 | DRG 628 ==
LOC: E/R 13:17 → ICU 15:43 → MS1 07-05 21:20
PROVIDERS: ADMIT Internal Medicine; ATTEND Internal Medicine
PROC: 0JH63XZ Insertion of Tunneled Vascular Access Device into Chest Subcutaneous Tissue and Fascia, Percutaneous Approach (ICD-10-PCS; 2017-07-06)
PROC: 02HV33Z Insertion of Infusion Device into Superior Vena Cava, Percutaneous Approach (ICD-10-PCS; 2017-07-06)
PROC: B518YZA Fluoroscopy of Superior Vena Cava using Other Contrast, Guidance (ICD-10-PCS; 2017-07-06)
PROC: 5A1D70Z Performance of Urinary Filtration, Intermittent, Less than 6 Hours Per Day (ICD-10-PCS; 2017-07-07)
PROC: 5A1D70Z Performance of Urinary Filtration, Intermittent, Less than 6 Hours Per Day (ICD-10-PCS; 2017-07-08)
PROC: 03180ZD Bypass Left Brachial Artery to Upper Arm Vein, Open Approach (ICD-10-PCS; principal; 2017-07-09 19:30)
PROC: 5A1D70Z Performance of Urinary Filtration, Intermittent, Less than 6 Hours Per Day (ICD-10-PCS; 2017-07-10)
PROC: 02HV33Z Insertion of Infusion Device into Superior Vena Cava, Percutaneous Approach (ICD-10-PCS; 2017-07-12)
PROC: 5A1D70Z Performance of Urinary Filtration, Intermittent, Less than 6 Hours Per Day (ICD-10-PCS; 2017-07-12)
PROC: 5A1D70Z Performance of Urinary Filtration, Intermittent, Less than 6 Hours Per Day (ICD-10-PCS; 2017-07-14)
DX: E11.10 Type 2 diabetes mellitus with ketoacidosis without coma (principal); N17.0 Acute kidney failure with tubular necrosis; N18.6 End stage renal disease; E87.2 Acidosis; E87.1 Hypo-osmolality and hyponatremia; L97.515 Non-pressure chronic ulcer of other part of right foot with muscle involvement without evidence of necrosis; N39.0 Urinary tract infection, site not specified; E11.22 Type 2 diabetes mellitus with diabetic chronic kidney disease; E83.51 Hypocalcemia; E11.621 Type 2 diabetes mellitus with foot ulcer; Z99.2 Dependence on renal dialysis; E78.5 Hyperlipidemia, unspecified; R07.89 Other chest pain; I25.10 Atherosclerotic heart disease of native coronary artery without angina pectoris; R94.31 Abnormal electrocardiogram [ECG] [EKG]; D63.1 Anemia in chronic kidney disease; I73.9 Peripheral vascular disease, unspecified; E11.42 Type 2 diabetes mellitus with diabetic polyneuropathy; B96.20 Unspecified Escherichia coli [E. coli] as the cause of diseases classified elsewhere; Z16.12 Extended spectrum beta lactamase (ESBL) resistance; Z79.4 Long term (current) use of insulin; Z89.421 Acquired absence of other right toe(s); Z87.891 Personal history of nicotine dependence
CPT/HCPCS: 36415; 36569; 36600; 71010; 76775; 76937; 78452; 80048; 80053; 80061; 81001; 82043; 82330; 82550; 82553; 82728; 82803; 82962; 83036; 83540; 83605; 83690; 83735; 84100; 84132; 84484; 85025; 85610; 85730; 86703; 86704; 86709; 86803; 87081; 87086; 87340; 90686; 90935; 93005; 93017; 93306; 93923; 93970; 96361; 96372; 96374; 96375; 97161; A4310; A9500; A9505; C1750; C1769; J0360; J0610; J0690; J0885; J1644; J1815; J1885; J2185; J2250; J2270; J2405; J2765; J2785; J2795; J3010; J3475; J3480; J7030; J7042

== ENCOUNTER 2017-09-03 13:18 | Observation (INO) | payer MEDICARE ==
[~2017-09-03] VITALS: Ht 167.6 cm; Wt 59.0 kg
[~2017-09-03 13:18] MED LIST: ASPI81TA3 PO; ATOR80TA75 PO; LANT3I SC; LISI10TA2 PO; NIFE30TA60 PO; NOVO3I SC; SAN30GM TOP; TAMS0.4C2 PO
[2017-09-03 16:17] LABS: BASOPHIL # 0.1 10^3/ul (0.0-0.1); BASOPHILS % 1.2 % (0.0-2.0); EOSINOPHILS # 0.2 10^3/ul (0.0-0.5); EOSINOPHILS % 3.4 % (0.0-7.0); HEMATOCRIT 40.4 % (42.0-52.0); HEMOGLOBIN 13.8 g/dl (14.0-18.0); LYMPHOCYTES # 1.8 10^3/ul (0.8-2.9); LYMPHOCYTES % 35.9 % (15.0-51.0); MEAN CORPUSCULAR HEMOGLOBIN 30.5 pg (29.0-33.0); MEAN CORPUSCULAR HGB CONC 34.2 g/dl (32.0-37.0); MEAN CORPUSCULAR VOLUME 89.4 fl (82.0-101.0); MEAN PLATELET VOLUME 10.2 fl (7.4-10.4); MONOCYTE # 0.5 10^3/ul (0.3-0.9); MONOCYTES % 10.1 % (0.0-11.0); NEUTROPHIL # 2.5 10^3/ul (1.6-7.5); NEUTROPHILS % 49.2 % (39.0-77.0); PLATELET COUNT 182 10^3/UL (140-415); RED BLOOD COUNT 4.52 10^6/ul (4.70-6.10); RED CELL DISTRIBUTION WIDTH 13.3 % (11.5-14.5)
[2017-09-03] MEDS ORDERED: NIFE60TA24 PO (16:33)
[2017-09-03] MEDS ORDERED: CARV6.2579 PO (16:33)
[2017-09-03] MEDS ORDERED: METR500T PO (16:33)
[2017-09-03] MEDS ORDERED: FLUO20CA22 PO (16:34)
[2017-09-03] MEDS ORDERED: ATOR20TA38 PO (16:34)
[2017-09-03 16:37] LABS: INR 0.97
[2017-09-03 16:38] LABS: PARTIAL THROMBOPLASTIN TIME 33.2 Sec (25.0-35.0)
[2017-09-03 16:40] LABS: CALCIUM 8.8 mg/dl (8.4-10.2); CREATININE 8.01 mg/dl (0.61-1.24); POTASSIUM 4.1 mmol/L (3.5-5.1)
--- NOTE | 2017-09-03 17:05 | ERD ---
ER Documentation Chief Complaint Chief Complaint Pt here for malfunctioning R chest HD catheter. HPI 47-year-old male with a history of ESRD on hemodialysis is presenting with a right HD catheter that seems to be malfunctioning. He went to dialysis yesterday and he states that the alarm kept going off during his dialysis and it took much longer than usual. There was a concern that it might be clotted partially. He states that they tried to declot his catheter at the dialysis center but it did not work. Patient has no complaints of chest pain, shortness of breath, headache, or any other symptoms. ROS All systems reviewed and are negative except as per history of present illness. Medications Home Meds Active Scripts Collagenase* (Santyl*) 30 Gm Oint..gm., 1 APPLIC TOP DAILY, #1 TUB Prov:KAPIL PAREDES 07/13/17 Insulin Glargine* (Lantus*) 100 Unit/Ml Soln, 22 UNIT SC QHS, #1 VIAL Prov:MOOKIE PAREDESLara 07/13/17 Insulin Aspart* (Novolog Insulin Pen*) 100 Unit/Ml Soln, 11 UNIT SC WITH MEALS, #1 VIAL Prov:KAPIL PAREDES 07/13/17 Reported Medications Fluoxetine Hcl* (Fluoxetine Hcl*) 20 Mg Capsule, 20 MG PO DAILY, CAP 09/03/17 Atorvastatin Calcium* (Atorvastatin Calcium*) 20 Mg Tablet, 20 MG PO QHS, #30 TAB 09/03/17 Carvedilol* (Carvedilol*) 6.25 Mg Tablet, 6.25 MG PO BID, #60 TAB 09/03/17 Nifedipine* (Afeditab CR*) 60 Mg Tablet.er, 60 MG PO DAILY, #30 TAB.SA 09/03/17 Metronidazole* (Flagyl*) 500 Mg Tablet, 500 MG PO TID, TAB 09/03/17 Discontinued Reported Medications Lisinopril* (Lisinopril*) 10 Mg Tablet, 10 MG PO DAILY, #30 TAB 07/04/17 Nifedipine* (Nifedipine ER*) 30 Mg Tablet.sa, 30 MG PO DAILY, TAB.SA 07/04/17 Tamsulosin Hcl* (Tamsulosin Hcl*) 0.4 Mg Cap.er.24h, 0.4 MG PO HS, CAP 07/04/17 Atorvastatin* (Atorvastatin*) 80 Mg Tablet, 80 MG PO QHS, #30 TAB 07/04/17 Discontinued Scripts Aspirin (Aspirin) 81 Mg Chew, 81 MG PO DAILY, #60 TAB Prov:KAPIL PAREDES 07/13/17 Allergies Allergies: Coded Allergies: No Known Allergy (Unverified , 09/03/17) PMhx/Soc History of Surgery: Yes (HERNIA SX , RIGHT PINKY TOE AMPUTED, TIBIA FARCTURE SX) Anesthesia Reaction: No Hx 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 Disorder: No Hx Respiratory Disorders: No Hx Cardiac Disorders: No Hx Psychiatric Problems: No Hx Miscellaneous Medical Probl: Yes (see H&P) Hx Alcohol Use: No Hx Substance Use: No Hx Tobacco Use: No Smoking Status: Never smoker FmHx Family History: No diabetes Physical Exam Vitals Vital Signs Date Time Temp Pulse Resp B/P Pulse Ox O2 Delivery O2 Flow Rate FiO2 09/03/17 13:35 97.9 60 18 141/78 100 Physical Exam Const: Well-appearing, no apparent distress Head: Atraumatic Eyes: Normal Conjunctiva ENT: Normal External Ears, Nose and Mouth. Neck: Full range of motion..~ No meningismus. Resp: Clear to auscultation bilaterally Chest wall: Right chest with HD catheter in place, clean dry and intact Cardio: Regular rate and rhythm, no murmurs Abd: Soft, non tender, non distended. Normal bowel sounds Skin: No petechiae or rashes Back: No midline or flank tenderness Ext: No cyanosis, or edema Neur: Awake and alert Psych: Normal Mood and Affect Result Diagram: 09/03/17 1608 09/03/17 1608 Results 24 hrs Laboratory Tests Test 09/03/17 16:08 White Blood Count 5.010^3/ul Red Blood Count 4.5210^6/ul Hemoglobin 13.8g/dl Hematocrit 40.4% Mean Corpuscular Volume 89.4fl Mean Corpuscular Hemoglobin 30.5pg Mean Corpuscular Hemoglobin Concent 34.2g/dl Red Cell Distribution Width 13.3% Platelet Count 31853^3/UL Mean Platelet Volume 10.2fl Neutrophils % 49.2% Lymphocytes % 35.9% Monocytes % 10.1% Eosinophils % 3.4% Basophils % 1.2% Nucleated Red Blood Cells % 0.0/100WBC Neutrophils # 2.510^3/ul Lymphocytes # 1.810^3/ul Monocytes # 0.510^3/ul Eosinophils # 0.210^3/ul Basophils # 0.110^3/ul Nucleated Red Blood Cells # 0.010^3/ul Prothrombin Time 13.0Sec Prothrombin Time Ratio 1.0 INR International Normalized Ratio 0.97 Activated Partial Thromboplast Time 33.2Sec Sodium Level 139mmol/L Potassium Level 4.1mmol/L Chloride Level 107mmol/L Carbon Dioxide Level 18mmol/L Anion Gap 18 Blood Urea Nitrogen 52mg/dl Creatinine 8.01mg/dl Glucose Level 163mg/dl Calcium Level 8.8mg/dl Current Medications Medications (Trade) Dose Ordered Sig/Jorge Route PRN Reason Start Time Stop Time Status Last Admin Dose Admin Ondansetron HCl (Zofran Inj) 4 mg BRIDGE ORDER PRN IV NAUSEA AND/OR VOMITING 09/03/17 17:30 12 17:29 Acetaminophen (Tylenol Tab) 650 mg ER BRIDGE PRN PO MILD PAIN/FEVER 09/03/17 17:30 09/04/17 17:29 Atorvastatin Calcium (Lipitor) 20 mg QHS PO 09/03/17 21:00 UNV Carvedilol (Coreg) 6.25 mg BID PO 09/03/17 21:00 UNV Collagenase (Santyl) 1 applic DAILY TOP 09/04/17 09:00 UNV Fluoxetine HCl (Prozac) 20 mg DAILY PO 09/04/17 09:00 UNV Insulin Aspart (Novolog Insulin Pen) 11 unit WITH MEALS SC 09/03/17 18:00 UNV Insulin Glargine (Lantus) 22 unit QHS SC 09/03/17 21:00 UNV Metronidazole (Flagyl) 500 mg TID PO 09/03/17 21:00 UNV Nifedipine (Procardia Xl) 60 mg DAILY PO 09/04/17 09:00 UNV Ondansetron HCl (Zofran Inj) 4 mg Q6H PRN IV NAUSEA AND/OR VOMITING 09/03/17 18:00 UNV Acetaminophen (Tylenol Tab) 650 mg Q6H PRN PO PAIN LEVEL 1-3 OR FEVER 09/03/17 18:00 UNV Acetaminophen/ Hydrocodone Bitart ([place] (5/325)) 2 tab Q6H PRN PO SEVERE PAIN LEVEL 7-10 09/03/17 18:00 UNV Docusate Sodium (Colace) 100 mg Q12H PRN PO CONSTIPATION 09/03/17 18:00 UNV Zolpidem Tartrate (Ambien) 5 mg QHS PRN PO SLEEP 09/03/17 18:00 UNV Famotidine (Pepcid) 20 mg Q12 PO 09/03/17 21:00 UNV Heparin Sodium (Porcine) (Heparin (5000 Units/0.5 ml)) 5,000 unit Q12 SC 09/03/17 21:00 UNV Procedures/MDM EMERGENT LABS AND DIAGNOSTIC STUDIES: Lab Results above were reviewed and interpreted by me. CBC unremarkable BMP shows evidence of chronic kidney disease, no electrolyte abnormalities Initial Nursing notes reviewed. Previous Medical Records requested via the Electronic Health Record. EMERGENCY DEPARTMENT COURSE / MEDICAL DECISION MAKING: Patient is presenting for malfunctioning right chest HD catheter. Vitals are stable. He does not seem to have any abnormalities on my exam. He is currently asymptomatic otherwise. I spoke with Dr. Phillips, his green feed attendant, who recommended replacement of his HD catheter. Patient will be admitted for this. Accepting Care Team: Current data and ongoing care discussed. Time: Time of admission Primary Provider: [employer] Consulting: Esme Phillips Outstanding Data: none Departure Diagnosis: Primary Impression: Complication of catheter Encounter type: initial encounter Qualified Code: T85.9XXA - Complication of catheter, initial encounter Condition: Stable EKAMINA KUMAR MD Sep 03, 2017 17:05
[2017-09-03] MEDS ORDERED: ONDANSETRON 4 MG INJ IV PRN ×2 (17:30→18:00)
[2017-09-03] MEDS ORDERED: ACETAMINOPHEN 325 MG TAB PO PRN ×2 (17:30→18:00)
[2017-09-03 17:57] VITALS: TEMP 98.2
[2017-09-03 18:00] VITALS: BP 228/103; PULSE 60; RESP 16
[2017-09-03] MEDS ORDERED: HYDROCODONE/APAP (5/325) TAB PO PRN (18:00)
[2017-09-03] MEDS ORDERED: DOCUSATE SODIUM 100 MG CAP PO PRN (18:00)
[2017-09-03 18:30] VITALS: BP 213/102; PULSE 59; RESP 17
[2017-09-03] MEDS ORDERED: hydrALAzine 20 MG INJ IV PRN (18:30)
--- NOTE | 2017-09-03 18:50 | CONS ---
Date/Time of Note Date/Time of Note DATE: 09/03/17 TIME: 18:50 Assessment/Plan Assessment/Plan Additional Assessment/Plan 1. Hypertensive emergency Bp 220/120 2. acute fluid overload due to missed HD due to Catheter malfunction 3. Clotted Tunneled HD catheter 4. ESRD on HD 5. HTN 6. HL 7. H/o Diabetes melitus, Insulin dependant Plan : Discussed with Need permacath exchange, for HD access will plan for HD tomorrow after permacath exchange Give Nifedipien 60mg POx 1 dose now then IV hydralzien prn BP still high in ED will follow up Thanks for consultation, we will continue to follow up on patient Consultation Date/Type/Reason Admit Date/Time 09/03/2017 Date of Consultation: Sep 03, 2017 Type of Consultation: NEPHROLOGY Reason for Consultation catheter malfunction, missed HD Referring Provider: NOAH ANDRE MD Hx of Present Illness 47 M with PMHx of HTN, DM, ESRD on HD due to diabetic nephropathy- who went to HD on last sunday - catheter did not work, tPA was placed, still it was not working so from HD unit he was advised to come to Hospital for catheter exchange , pt follows with Vascualr surgery he missed his HD since last , BP high sytolic in 220s. mild SOb with ambulation Constitutional: no complaints Eyes: no complaints ENT: no complaints Respiratory: pleuritic pain, shortness of breath Cardiovascular: no complaints Gastrointestinal: no complaints Genitourinary: no complaints Musculoskeletal: no complaints Skin: no complaints Neurologic: no complaints Endocrine: no complaints Lymphatic: no complaints Psychological: no complaints Immunologic: no complaints Past Medical History Medical History: diabetes, high cholesterol, hypertension, other (ESRD on HD ) Past Surgical History Past Surgical Hx: other (Permacath right chest ) Family History Significant Family History: no pertinent family hx Social History Alcohol Use: none Smoking Status: Never smoker Drug Use: none Exam/Review of Systems Vital Signs Vitals Vital Signs Date Time Temp Pulse Resp B/P Pulse Ox O2 Delivery O2 Flow Rate FiO2 09/03/17 17:57 98.2 71 19 226/102 100 Room Air Exam Constitutional: alert, oriented, well developed Psych: no complaints Head: normocephalic Eyes: nl conjunctiva ENMT: nl external ears & nose Neck: non-tender, supple Respiratory: clear to auscultation, diminished breath sounds, normal air movement Cardiovascular: nl pulses, regular rate and rhythm Gastrointestinal: non-tender, soft Musculoskeletal: muscle tone, muscle weakness, nl extremities to inspection Extremities: normal pulses, other (Right chest permacath), pitting pedal edema 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: INFORMATION SECURITY DIRECTOR II-XII intact, nl mental status, nl speech, nl strength Skin: nl turgor Lymph: nl lymph nodes Results Result Diagram: 09/03/17 1608 09/03/17 1608 Results 24 hrs Laboratory Tests Test 09/03/17 16:08 White Blood Count 5.0 # Red Blood Count 4.52 #L Hemoglobin 13.8 #L Hematocrit 40.4 #L Mean Corpuscular Volume 89.4 Mean Corpuscular Hemoglobin 30.5 Mean Corpuscular Hemoglobin Concent 34.2 Red Cell Distribution Width 13.3 Platelet Count 182 # Mean Platelet Volume 10.2 Neutrophils % 49.2 Lymphocytes % 35.9 Monocytes % 10.1 Eosinophils % 3.4 Basophils % 1.2 Nucleated Red Blood Cells % 0.0 Neutrophils # 2.5 Lymphocytes # 1.8 Monocytes # 0.5 Eosinophils # 0.2 Basophils # 0.1 Nucleated Red Blood Cells # 0.0 Prothrombin Time 13.0 Prothrombin Time Ratio 1.0 INR International Normalized Ratio 0.97 Activated Partial Thromboplast Time 33.2 Sodium Level 139 Potassium Level 4.1 Chloride Level 107 Carbon Dioxide Level 18 L Anion Gap 18 H Blood Urea Nitrogen 52 H Creatinine 8.01 H Glucose Level 163 Calcium Level 8.8 Medications Medications Current Medications Atorvastatin Calcium (Lipitor) 20 mg QHS PO ; Start 09/03/17 at 21:00 Carvedilol (Coreg) 6.25 mg BID PO ; Start 09/03/17 at 21:00 Collagenase (Santyl) 1 applic DAILY TOP ; Start 09/04/17 at 09:00 Fluoxetine HCl (Prozac) 20 mg DAILY PO ; Start 09/04/17 at 09:00 Insulin Glargine (Lantus) 22 unit QHS SC ; Start 09/03/17 at 21:00 Metronidazole (Flagyl) 500 mg TID PO ; Start 09/03/17 at 21:00 Nifedipine (Procardia Xl) 60 mg DAILY PO ; Start 09/04/17 at 09:00 Ondansetron HCl (Zofran Inj) 4 mg Q6H PRN IV NAUSEA AND/OR VOMITING; Start at 18:00 Acetaminophen (Tylenol Tab) 650 mg Q6H PRN PO PAIN LEVEL 1-3 OR FEVER; Start 09/03/17 at 18:00 Acetaminophen/ Hydrocodone Bitart ([place] (5/325)) 2 tab Q6H PRN PO SEVERE PAIN LEVEL 7-10; Start 09/03/17 at 18:00 Docusate Sodium (Colace) 100 mg Q12H PRN PO CONSTIPATION; Start 09/03/17 at 18 :00 Zolpidem Tartrate (Ambien) 5 mg QHS PRN PO SLEEP; Start 09/03/17 at 21:00 Famotidine (Pepcid) 20 mg HS PO ; Start 09/03/17 at 21:00 Heparin Sodium (Porcine) (Heparin (5000 Units/0.5 ml)) 5,000 unit Q12 SC ; Start 09/03/17 at 21:00 Hydralazine HCl (Apresoline) 20 mg Q6H PRN IV sbp>170; Start 09/03/17 at 18:30 Miscellaneous Information 1 ea NOTE XX ; Start 09/03/17 at 19:00 Glucose (Glutose) 15 gm Q15M PRN PO DECREASED GLUCOSE; Start 09/03/17 at 19:00 Glucose (Glutose) 22.5 gm Q15M PRN PO DECREASED GLUCOSE; Start 09/03/17 at 19: 00 Dextrose (D50w Syringe) 25 ml Q15M PRN IV DECREASED GLUCOSE; Start 09/03/17 at 19:00 Dextrose (D50w Syringe) 50 ml Q15M PRN IV DECREASED GLUCOSE; Start 09/03/17 at 19:00 Glucagon (Glucagen) 1 mg Q15M PRN IM DECREASED GLUCOSE; Start 09/03/17 at 19: 00 Glucose (Glutose) 15 gm Q15M PRN BUCCAL DECREASED GLUCOSE; Start 09/03/17 at 19:00 JENNIFER LUKE MD Sep 03, 2017 18:50
[2017-09-03] MEDS ORDERED: GLUCOSE GEL 15 GRAM TUBE PO PRN ×2 (19:00)
[2017-09-03] MEDS ORDERED: GLUCOSE GEL 15 GRAM TUBE BUCCAL PRN (19:00)
[2017-09-03] MEDS ORDERED: DEXTROSE 50% 50 ML SYRINGE IV PRN ×2 (19:00)
[2017-09-03] MEDS ORDERED: NIFEdipine (XL) 60 MG TAB PO ONE (19:00)
[2017-09-03] MEDS ORDERED: GLUCAGON 1 MG INJ IM PRN (19:00)
[2017-09-03 19:30] VITALS: BP 141/73; PULSE 73; RESP 18
[2017-09-03] MEDS: INSULIN ASPART [NOVOLOG] 3 ML PEN SC SCH (19:38)
[2017-09-03 20:10] VITALS: Ht 167.6 cm; Wt 59.0 kg
[2017-09-03 20:26] VITALS: BP 100/58; PULSE 64; RESP 16
[2017-09-03] MEDS ORDERED: ZOLPIDEM 5 MG TAB PO PRN (21:00)
[2017-09-03] MEDS ORDERED: INSULIN GLARGINE [LANtus] 3 ML PEN SC SCH (21:00)
[2017-09-03] MEDS ORDERED: FAMOTIDINE 20 MG TAB PO SCH (21:00)
[2017-09-03] MEDS ORDERED: ATORVASTATIN 20 MG TAB PO SCH (21:00)
[2017-09-03] MEDS: HEPARIN 5,000 UNIT/0.5 ML VIAL SC SCH (21:12)
[2017-09-03] MEDS: metroNIDAZOLE 500 MG TAB PO SCH (22:04)
[2017-09-04] VITALS (10 sets, daily range): BP systolic 101–130; BP diastolic 55–78; PULSE 63–70; RESP 16
--- NOTE | 2017-09-04 03:33 | HP ---
DATE OF ADMISSION: 09/03/2017 HISTORY OF PRESENT ILLNESS: The patient is a 47-year-old gentleman with a past medical his tory positive to diabetes mellitus with diabetic nephropathy and end-stage renal disease, hemodialys is dependent, anemia of chronic disease, peripheral arterial disease, status post right fifth toe am putation, hypertension, and recent Clostridium difficile colitis. The patient was presented in [facility] yesterday and had difficulty undergoing hemodialysis due to malfunction of the right chest hemodialysis catheter, and patient was instructed by Dr. Phillips, with is his python developer, to come to the emergency room. On evaluation to the emergency room, the patient's potassium was 4.9 a nd sodium was 139. The patient denies any fever, chills, denies any shortness of breath, denies any chest pain, denies diarrhea. The patient also had a history of right upper extremity AV fistula cr eation by Dr. James on 07/09/2017. The patient will be admitted to medical/surgical floor for f urther evaluation and management. PAST MEDICAL HISTORY: Per HPI. PAST SURGICAL HISTORY: Status post hernia repair, status post tibial fracture repair, and status po st right fifth toe amputation. FAMILY HISTORY: Positive for a history of diabetes. SOCIAL HISTORY: Patient lives at home. The patient denies any tobacco use, denies any alcohol use, denies any illicit drug use. ALLERGIES: NO KNOWN ALLERGIES. HOME MEDICATIONS: Includes: 1. Atorvastatin. 2. Coreg. 3. Santyl ointment topical daily. 4. Fluoxetine. 5. Lantus 22 units subcutaneously at bedtime. 6. NovoLog 11 units subcutaneous with meals. 7. Flagyl. 8. Nifedipine. REVIEW OF SYSTEMS: A 12-point review of systems is negative unless when mentioned in the HPI. PHYSICAL ASSESSMENT: GENERAL: A well-developed, well-nourished male, currently in no acute distress. VITAL SIGNS: Temperature is 97.9, pulse is 60, blood pressure 141/78, respiratory rate 18, oxygen s aturation is 100% on room air. HEENT: Head is atraumatic, normocephalic. Pupils equal, round, reactive to light and accommodation . Oral mucosa is pink and moist. NECK: Supple, no cervical lymphadenopathy, no thyromegaly. CHEST: Lungs clear bilaterally. There is no rhonchi, wheezes, rales noted. CARDIOVASCULAR: Normal S1, S2. No murmurs, gallops, clicks, rubs noted. ABDOMEN: Flat, soft, nondistended, nontender. Bowel sounds present. There is no guarding or rebou nd tenderness. EXTREMITIES: No edema, clubbing, cyanosis. Pulses bilaterally 2+. Patient has a right fifth toe w ound with intact, clean, dry dressing. SKIN: There is no rash, petechiae noted. The patient has a left upper extremity AV fistula with a palpable thrill and audible bruit. The patient has a right chest John catheter. NEUROLOGIC: Patient is awake, alert and oriented x4. No focal deficits noted. Motor strength 5/5 in all extremities. LABORATORY DATA: On admission, CBC: White blood cells 5.0, hemoglobin 13.8, hematocrit 40.4, plate lets 182. Chemistry: Sodium is 139, potassium 4.1, chloride 107, carbon dioxide 18, anion gap 18, BUN is 52, creatinine 8.01, glucose 163, calcium is 8.8. PT is 13.0, INR is 0.97, a PTT is 33.2. ASSESSMENT AND PLAN: 1. Right chest John catheter malfunction. Dr. James is asked to see patient in a vascular s urgery consultation. 2. End-stage renal disease, hemodialysis dependent. Dr. Phillips will be following patient in nephrol ogy consultation. 3. Diabetes mellitus. Will continue Lantus and NovoLog with Accu-Cheks before meals and at bedtime . 4. Hypertension. Will continue Coreg and nifedipine. 5. Hyperlipidemia. Continue statin. 6. Recent Clostridium difficile colitis. Will continue Flagyl. 7. Status post right toe amputation. Continue current wound care with Collagenase daily. 8. Will continue Pepcid for peptic ulcer disease prophylaxis and heparin for deep venous thrombosis prophylaxis. 9. Further recommendations based on clinical course. Plan of care discussed with Dr. Andre. Dictated By: SATURNINO KEITH CONCRETE VIBRATOR OPERATOR for NOAH ANDRE MD SR/NTS Conf#: [id number] DID#: [id number] CC: NOAH ANDRE MD;*EndCC*
[2017-09-04 07:13] LABS: BASOPHIL # 0.1 10^3/ul (0.0-0.1); BASOPHILS % 1.6 % (0.0-2.0); EOSINOPHILS # 0.1 10^3/ul (0.0-0.5); HEMATOCRIT 36.5 % (42.0-52.0); HEMOGLOBIN 12.5 g/dl (14.0-18.0); LYMPHOCYTES # 2.1 10^3/ul (0.8-2.9); LYMPHOCYTES % 42.8 % (15.0-51.0); MEAN CORPUSCULAR HEMOGLOBIN 30.6 pg (29.0-33.0); MEAN CORPUSCULAR HGB CONC 34.2 g/dl (32.0-37.0); MEAN CORPUSCULAR VOLUME 89.5 fl (82.0-101.0); MONOCYTE # 0.5 10^3/ul (0.3-0.9); MONOCYTES % 9.6 % (0.0-11.0); NEUTROPHIL # 2.2 10^3/ul (1.6-7.5); NEUTROPHILS % 43.6 % (39.0-77.0); PLATELET COUNT 195 10^3/UL (140-415); RED BLOOD COUNT 4.08 10^6/ul (4.70-6.10); RED CELL DISTRIBUTION WIDTH 13.1 % (11.5-14.5)
[2017-09-04 07:41] LABS: CALCIUM 8.3 mg/dl (8.4-10.2); CREATININE 8.76 mg/dl (0.61-1.24); POTASSIUM 3.7 mmol/L (3.5-5.1)
[2017-09-04] MEDS: INSULIN ASPART [NOVOLOG] 3 ML PEN SC SCH ×3 (07:50→17:53)
[2017-09-04] MEDS ORDERED: NIFEdipine (XL) 60 MG TAB PO SCH (09:00)
[2017-09-04] MEDS: HEPARIN 5,000 UNIT/0.5 ML VIAL SC SCH ×2 (09:00→09:49)
[2017-09-04] MEDS ORDERED: FLUOXETINE 20 MG CAP PO SCH (09:00)
[2017-09-04] MEDS ORDERED: COLLAGENASE 30 GM TUBE TOP SCH (09:00)
[2017-09-04] MEDS: metroNIDAZOLE 500 MG TAB PO SCH ×2 (09:48→14:35)
--- NOTE | 2017-09-04 10:43 | HPN ---
Date/Time of Note Date/Time of Note DATE: 09/04/17 TIME: 10:43 Interval H&P Admission Note Pt. seen H&P reviewed: No system changes YOSI ARIAS MD Sep 04, 2017 10:43
[2017-09-04] MEDS ORDERED: MIDAZOLAM 1 MG/ML 2 ML INJ ONE (11:10)
[2017-09-04] MEDS ORDERED: LIDOCAINE 1% (MDV) 20 ML INJ ONE (11:13)
[2017-09-04] MEDS ORDERED: HEPARIN 1000 UNITS/ML 10 ML INJ ONE (11:13)
--- NOTE | 2017-09-04 13:27 | OPR ---
Date/Time of Note Date/Time of Note DATE: 09/04/17 TIME: 13:14 Operative Report Procedure Date: Sep 04, 2017 Preoperative Diagnosis ESRD, MALFUNCTIONING RIGHT CHEST WALL CATHETER Postoperative Diagnosis SAME Operation/Procedure Performed EXCHANGE OF RIGHT CHEST WALL CATHETER CENTRAL VENOGRAM Surgeon see signature line Iron Plastic Bullet Maker NONE Anesthesia Type: moderate sedation Estimated Blood Loss: minimal Transfusion none Specimen NONE Grafts/Implants none Complications none Pt Condition Post Procedure: stable Disposition: other (FLOOR) Procedure Description DATE OF OPERATION: 09/04/2017 SURGEON: Shaji Arias MD. PREOPERATIVE DIAGNOSIS: End-stage renal disease and malfunctioning right chest wall catheter POSTOPERATIVE DIAGNOSIS:Same ANESTHESIA: Local with moderate Sedation. Patient was monitored with vitals throughout the procedure with the interventional team under surgeon supervision. Time spent [id number] was 30 minutes BLOOD LOSS: minimal COMPLICATIONS: None. HEPARIN: None CONTRAST: None ACCESS: right IJ vein CLOSURE: Manual compression & 3-0 Nylon suture INDICATIONS: This is a 47 year-old male with renal failure whom has a nonmaturing left upper extremity fistula. Currently has a right chest permanent catheter that is malfunctioning. Patient and family have been informed of the alternatives, risks, and benefits. Risks including but not limited to bleeding, thrombosis, embolization, myocardial infarction, , device malfunction, infection, pneumothorax, and nephrotoxicity and patient has agreed to proceed. This is the first in this clinical setting PROCEDURE: 1. Right internal jugular vein placement of permanent hemodialysis catheter 2. Central venogram 3. Introduction of Catheter SVC 4. fluoroscopy 5. moderate sedation DESCRIPTION: The patient was placed supine on angio bed. The bed was placed in Trendelenburg position and bilateral neck and chest were prepped and draped with sterile technique. A time-out was completed verifying correct patient, procedure, site, positioning, and catheter prior to beginning this procedure. The dialysis catheter was flushed with heparin to ensure function of each port. The skin and subcutaneous tissue were anesthetized with 1% lidocaine. Landmarks were identified. The infraclavicular chest wall catheter was used to gain access of the central vein and glide wire placement under fluoroscopy in the SVC was performed. The permanent catheter was then pulled back to the internal jugular vein and subclavian vein junction and a central venogram was performed. No central stenosis was identified. Therefore decision was made to remove the permanent catheter and replace with a new catheter. Using the arterial port an Amplatz wire was also placed in the SVC. The malfunctioning catheter was then removed and using a guiding catheter being introduced in the SVC, the stiff wire was then placed in the IVC under fluoroscopy. A new permanent catheter was placed over the wires and placed in the distal SVC. A spot fluoro was performed and catheter position was satisfactory. Each port was aspirated to ensure adequate blood flow and then flushed with heparinized saline. Each port had heparin solution placed. The Catheter was secured using 3-0 nylon suture and a sterile dressings applied. The patient tolerated the procedure well and taken to the postanesthesia unit in fair condition. SHAJI ARIAS MD Sep 04, 2017 13:26
[2017-09-04] MEDS ORDERED: FENTAnyl 50 MCG/ML VIAL ONE (13:50)
--- NOTE | 2017-09-04 14:10 | HP ---
DATE OF ADMISSION: 09/03/2017 TYPE OF CONSULTATION: Vascular surgery. Dear Doctors: Mr. Villanueva is a 47-year-old gentleman with past medical history of end-stage renal disease in [facility] he currently has a right chest wall catheter that he has been undergoing his dialysis sessions wi that unfortunately started malfunctioning yesterday. It seems that the patient was brought into the ER for further evaluation. Of note, the patient has also had a history of left upper extremity AV fistula creation in which it did not mature well and is scheduled for a fistulogram for further e valuation. REVIEW OF SYSTEMS: A 14-point review performed negative except what is mentioned in the HPI. At th e moment, the patient denies shortness of breath, chest pain, nausea, vomiting, fever or chills. De nies upper extremity claudication or rest pain-like symptoms. PAST MEDICAL HISTORY: Entails diabetes, diabetic neuropathy, end-stage renal disease, anemia of chr onic disease, bilateral lower extremity atherosclerosis. PAST SURGICAL HISTORY: Hernia repair, tibial fracture repair, right fifth toe amputation. FAMILY HISTORY: Positive for diabetes and coronary artery disease. SOCIAL HISTORY: Denies tobacco, alcohol or illicit drug use. PHYSICAL EXAMINATION: GENERAL: Alert and oriented x3, no apparent distress. HEENT: Normocephalic, atraumatic. EOMI. Mucosa moist. NECK: Supple. No carotid bruit. PULMONARY: Clear to auscultation bilaterally. No crackles. CARDIOVASCULAR: S1, S2 present. No murmurs. ABDOMEN: Soft, nontender, nondistended. Bowel sounds positive. EXTREMITIES: Lower extremities, palpable femoral pulse, faint pedal pulse. Motor and sensory intac t. Capillary refill 2-3 seconds. Fifth toe amputation site clean. Left lower extremity palpable femoral pulse, faint pedal pulse. Motor and sensory intact. Capillar y refill 2-3 seconds. Left upper extremity palpable brachial pulse. Motor and sensory intact. Capillary refill 2 seconds . Surgical scar is well healed. Fistula with weak bruit and thrill. Right chest wall catheter intact. ASSESSMENT AND PLAN: End-stage renal disease: It seems the patient's right chest wall catheter is malfunctioning and we will plan to obtain a new central venogram and possible exchange of the permanent catheter. We will also plan to schedule the patient for his left upper extremity fistulogram to further delineate the non-maturing and weak bruit and thrill. Optimize vascular status (BP medications, diet, nutrition, exercise, sugar control, antiplatelets). Discussed findings, plan and management with the patient and he understands. Thank you for allowing us to partake in the care of your patient. Please call with any questions. Total time spent with the patient, is greater than 25 minutes. Dictated By: YOSI DIAZ/RADHA Conf#: [id number] DID#: [id number]
--- NOTE | 2017-09-04 18:39 | CONS ---
Date/Time of Note Date/Time of Note DATE: 09/04/17 TIME: 18:37 Assessment/Plan Assessment/Plan Chief Complaint/Hosp Course 47 M with PMHx of HTN, DM, ESRD on HD due to diabetic nephropathy- who went to HD on last sunday - catheter did not work, tPA was placed, still it was not working so from HD unit he was advised to come to Hospital for catheter exchange , pt follows with Vascualr surgery he missed his HD since last , BP high sytolic in 220s. mild SOb with ambulation Problems: Additional Assessment/Plan 1. Hypertensive emergency Bp 220/120 2. acute fluid overload due to missed HD due to Catheter malfunction 3. Clotted Tunneled HD catheter 4. ESRD on HD 5. HTN 6. HL 7. H/o Diabetes melitus, Insulin dependant Plan : s/p permacath exchange by had a HD today, tolerated well BP stable pt regular schedule for HD is TTS Consultation Date/Type/Reason Admit Date/Time Sep 03, 2017 at 17:04 Initial Consult Date 09/03/17 Type of Consultation: NEPHROLOGY Referring Provider: NOAH ANDRE MD 24 HR Interval Summary Free Text/Dictation s/p Permacath exchange, S/p HD today tolerated well Exam/Review of Systems Vital Signs Vitals Vital Signs Date Time Temp Pulse Resp B/P Pulse Ox O2 Delivery O2 Flow Rate FiO2 09/04/17 16:15 70 09/04/17 16:15 17 09/04/17 15:08 121/68 Room Air 09/04/17 08:34 98.8 99 Exam Constitutional: alert, oriented, well developed Respiratory: clear to auscultation, diminished breath sounds, normal air movement Cardiovascular: nl pulses, regular rate and rhythm Gastrointestinal: non-tender, soft Musculoskeletal: muscle tone, muscle weakness, nl extremities to inspection Extremities: normal pulses, other (Right chest permacath), pitting pedal edema 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: ASSEMBLER WET WASH II-XII intact, nl mental status, nl speech, nl strength Results Result Diagram: 09/04/17 0611 09/04/17 0611 Results 24 hrs Laboratory Tests Test 09/03/17 19:32 09/03/17 21:33 09/04/17 06:11 09/04/17 07:43 Bedside Glucose 137 134 90 White Blood Count 5.0 Red Blood Count 4.08 L Hemoglobin 12.5 L Hematocrit 36.5 L Mean Corpuscular Volume 89.5 Mean Corpuscular Hemoglobin 30.6 Mean Corpuscular Hemoglobin Concent 34.2 Red Cell Distribution Width 13.1 Platelet Count 195 Mean Platelet Volume 11.0 H Neutrophils % 43.6 Lymphocytes % 42.8 Monocytes % 9.6 Eosinophils % 2.0 Basophils % 1.6 Nucleated Red Blood Cells % 0.0 Neutrophils # 2.2 Lymphocytes # 2.1 Monocytes # 0.5 Eosinophils # 0.1 Basophils # 0.1 Nucleated Red Blood Cells # 0.0 Sodium Level 139 Potassium Level 3.7 Chloride Level 111 H Carbon Dioxide Level 15 L Anion Gap 17 H Blood Urea Nitrogen 54 H Creatinine 8.76 H Glucose Level 69 #L Calcium Level 8.3 L Test 09/04/17 12:11 09/04/17 17:35 Bedside Glucose 82 105 Medications Medications Current Medications Atorvastatin Calcium (Lipitor) 20 mg QHS PO Last administered on 09/03/17 21: 09; Admin Dose 20 MG; Start 09/03/17 at 21:00 Carvedilol (Coreg) 6.25 mg BID PO Last administered on 09/04/17 09:48; Admin Dose 6.25 MG; Start 09/03/17 at 19:00 Collagenase (Santyl) 1 applic DAILY TOP Last administered on 09/04/17 09:50; Admin Dose 1 APPLIC; Start 09/04/17 at 09:00 Fluoxetine HCl (Prozac) 20 mg DAILY PO Last administered on 09/04/17 10:31; Admin Dose 20 MG; Start 09/04/17 at 09:00 Insulin Glargine (Lantus) 22 unit QHS SC Last administered on 09/03/17 21:37 ; Admin Dose 22 UNIT; Start 09/03/17 at 21:00 Metronidazole (Flagyl) 500 mg TID PO Last administered on 09/04/17 14:35; Admin Dose 500 MG; Start 09/03/17 at 21:00 Nifedipine (Procardia Xl) 60 mg DAILY PO Last administered on 09/04/17 09:00 ; Admin Dose 60 MG; Start 09/04/17 at 09:00 Ondansetron HCl (Zofran Inj) 4 mg Q6H PRN IV NAUSEA AND/OR VOMITING; Start at 18:00 Acetaminophen (Tylenol Tab) 650 mg Q6H PRN PO PAIN LEVEL 1-3 OR FEVER; Start 09/03/17 at 18:00 Acetaminophen/ Hydrocodone Bitart (Mina (5/325)) 2 tab Q6H PRN PO SEVERE PAIN LEVEL 7-10; Start 09/03/17 at 18:00 Docusate Sodium (Colace) 100 mg Q12H PRN PO CONSTIPATION; Start 09/03/17 at 18 :00 Zolpidem Tartrate (Ambien) 5 mg QHS PRN PO SLEEP; Start 09/03/17 at 21:00 Famotidine (Pepcid) 20 mg HS PO Last administered on 09/03/17 21:09; Admin Dose 20 MG; Start 09/03/17 at 21:00 Heparin Sodium (Porcine) (Heparin (5000 Units/0.5 ml)) 5,000 unit Q12 SC Last administered on 09/03/17 21:12; Admin Dose 5,000 UNIT; Start 09/03/17 at 21: 00 Hydralazine HCl (Apresoline) 20 mg Q6H PRN IV sbp>170 Last administered on 18:53; Admin Dose 20 MG; Start 09/03/17 at 18:30 Miscellaneous Information 1 ea NOTE XX ; Start 09/03/17 at 19:00 Glucose (Glutose) 15 gm Q15M PRN PO DECREASED GLUCOSE; Start 09/03/17 at 19:00 Glucose (Glutose) 22.5 gm Q15M PRN PO DECREASED GLUCOSE; Start 09/03/17 at 19: 00 Dextrose (D50w Syringe) 25 ml Q15M PRN IV DECREASED GLUCOSE; Start 09/03/17 at 19:00 Dextrose (D50w Syringe) 50 ml Q15M PRN IV DECREASED GLUCOSE; Start 09/03/17 at 19:00 Glucagon (Glucagen) 1 mg Q15M PRN IM DECREASED GLUCOSE; Start 09/03/17 at 19: 00 Glucose (Glutose) 15 gm Q15M PRN BUCCAL DECREASED GLUCOSE; Start 09/03/17 at 19:00 JENNIFER LUKE MD Sep 04, 2017 18:39
--- NOTE | 2017-09-04 20:15 | PDOCDIS ---
Discharge Instructions CONDITION Patient Condition: Good HOME CARE INSTRUCTIONS: Special Diet: Renal diabetic diet ACTIVITY: Activity Restrictions: Slowly Increase Activity Rest between Activity Avoid heavy lifting Avoid Heavy Housework FOLLOW UP/APPOINTMENTS Follow-up Plan Follow up with dialysis unit for scheduled dialysis on , , sunday JENNIFER LUKE MD Sep 04, 2017 20:15
--- NOTE | 2017-09-04 21:52 | RADRPT ---
PROCEDURE: US bilateral upper extremity Venous. CLINICAL INDICATION: End-stage renal disease, vein mapping TECHNIQUE: Multiple sonographic images of the bilateral upper lower extremity deep an superficial venous system was obtained utilizing grayscale, color-flow, compressive sonography and doppler imagi ng with augmentation. Measurements were performed. The images were reviewed on a PACS workstation. COMPARISON: None. FINDINGS: RIGHT Right basilic vein size: Proximal: 4.4 mm Mid aspect: 4.6 mm Distal: 5.2 mm Right basilic vein size in the forearm: Proximal: 1.1 mm Distal: 1.1 mm Right cephalic vein: Not seen Right cephalic vein size in the forearm: Proximal: not seen Mid aspect: 2.3 mm Distal: 1.5. mm LEFT Left basilic vein size: Proximal: 3.9 mm Mid aspect: 3.0 mm Distal: 1.9 mm Left basilic vein size in the forearm: Proximal: 1.1 mm Mid aspect: 1.1 mm Distal: 1.3 mm Left cephalic vein size: Proximal: 2.1 mm Mid aspect: 1.4 mm Distal: 2.9 mm Left cephalic vein size in the forearm: Proximal: 2.7 mm Mid aspect: 1.8 mm Distal: 2.8 mm IMPRESSION: Vein mapping as described. Right cephalic vein in the upper arm is not seen. RPTAT: AA .Lino Pradhan MD, MD Date Time Electronically viewed and signed by .Lino Pradhan MD, MD on 09/04/2017 21:52 .S/
--- NOTE | 2017-09-05 19:13 | DS ---
Date/Time of Note Date/Time of Note DATE: 09/05/17 TIME: 19:10 Discharge Summary Admission/Discharge Info Admit Date/Time Sep 03, 2017 at 17:04 Discharge Date/Time Sep 04, 2017 at 21:15 Patient Condition: Stable Hx of Present Illness The patient is a 47-year-old gentleman with a past medical history positive to diabetes mellitus with diabetic nephropathy and end-stage renal disease, hemodialysis dependent, anemia of chronic disease, peripheral arterial disease, status post right fifth toe amputation, hypertension, and recent Clostridium difficile colitis. The patient was presented in hemodialysis center yesterday and had difficulty undergoing hemodialysis due to malfunction of the right chest hemodialysis catheter, and patient was instructed by Dr. Phillips, with is his event planning manager, to come to the emergency room. On evaluation to the emergency room, the patient's potassium was 4.9 and sodium was 139. The patient denies any fever, chills, denies any shortness of breath, denies any chest pain, denies diarrhea. The patient also had a history of right upper extremity AV fistula creation by Dr. James on 07/09/2017. The patient will be admitted to medical/surgical floor for further evaluation and management. Hospital Course 1. Right chest John catheter malfunction. S/p new cath placement by Dr. James, vascular surgery consultation. S/p LUE venogram. 2. End-stage renal disease, hemodialysis dependent. Dr. Phillips is following in nephrology consultation. S/p HD today. 3. Diabetes mellitus. Continue Lantus and NovoLog with Accu-Cheks before meals and at bedtime. 4. Hypertension. Continue Coreg and nifedipine. 5. Hyperlipidemia. Continue statin. 6. Recent Clostridium difficile colitis. Continue Flagyl. 7. Status post right toe amputation. Continue current wound care with Collagenase daily. Plan of care discussed with Dr. Cuello. Home Meds Active Scripts Collagenase* (Santyl*) 30 Gm Oint..gm., 1 APPLIC TOP DAILY, #1 TUB Prov:KAPIL PAREDES 07/13/17 Insulin Glargine* (Lantus*) 100 Unit/Ml Soln, 22 UNIT SC QHS, #1 VIAL Prov:KAPIL PAREDES 07/13/17 Insulin Aspart* (Novolog Insulin Pen*) 100 Unit/Ml Soln, 11 UNIT SC WITH MEALS, #1 VIAL Prov:KAPIL PAREDES 07/13/17 Reported Medications Fluoxetine Hcl* (Fluoxetine Hcl*) 20 Mg Capsule, 20 MG PO DAILY, CAP 09/03/17 Atorvastatin Calcium* (Atorvastatin Calcium*) 20 Mg Tablet, 20 MG PO QHS, #30 TAB 09/03/17 Carvedilol* (Carvedilol*) 6.25 Mg Tablet, 6.25 MG PO BID, #60 TAB 09/03/17 Nifedipine* (Afeditab CR*) 60 Mg Tablet.er, 60 MG PO DAILY, #30 TAB.SA 09/03/17 Metronidazole* (Flagyl*) 500 Mg Tablet, 500 MG PO TID, TAB 09/03/17 Discontinued Reported Medications Lisinopril* (Lisinopril*) 10 Mg Tablet, 10 MG PO DAILY, #30 TAB 07/04/17 Nifedipine* (Nifedipine ER*) 30 Mg Tablet.sa, 30 MG PO DAILY, TAB.SA 07/04/17 Tamsulosin Hcl* (Tamsulosin Hcl*) 0.4 Mg Cap.er.24h, 0.4 MG PO HS, CAP 07/04/17 Atorvastatin* (Atorvastatin*) 80 Mg Tablet, 80 MG PO QHS, #30 TAB 07/04/17 Discontinued Scripts Aspirin (Aspirin) 81 Mg Chew, 81 MG PO DAILY, #60 TAB Prov:KAPIL PAREDES 07/13/17 Follow-up Plan Follow up with dialysis unit for scheduled dialysis on , , sunday f/up with Dr James in 2 weeks, f/up in HD center for next HD. Primary Care Provider Not On Staff Doctor Time spent on discharge: > 30 minutes SATURNINO KEITH Sep 05, 2017 19:13
== END 2017-09-04 21:15 | disposition home or self-care (01) ==
LOC: E/R 13:18 → MS3 17:04
PROVIDERS: ADMIT Internal Medicine; ATTEND Internal Medicine
DX: T82.41XA Breakdown (mechanical) of vascular dialysis catheter, initial encounter (principal); I12.0 Hypertensive chronic kidney disease with stage 5 chronic kidney disease or end stage renal disease; E11.22 Type 2 diabetes mellitus with diabetic chronic kidney disease; N18.6 End stage renal disease; Z99.2 Dependence on renal dialysis; Z79.4 Long term (current) use of insulin; E78.5 Hyperlipidemia, unspecified; E11.21 Type 2 diabetes mellitus with diabetic nephropathy; Y83.8 Other surgical procedures as the cause of abnormal reaction of the patient, or of later complication, without mention of misadventure at the time of the procedure; Z83.3 Family history of diabetes mellitus; Z82.49 Family history of ischemic heart disease and other diseases of the circulatory system; Z89.421 Acquired absence of other right toe(s)
CPT/HCPCS: 75827; 80048; 82962; 85025; 85610; 85730; 90935; 93970; 96372; 96374; C1750; G0378; J0360; J1644; J1815; J2250; J3010

== ENCOUNTER 2018-04-15 19:40 | Inpatient (IN) | END 2018-04-23 21:55 | disposition left against medical advice (07) | DRG 637 ==